=== PATIENT | female | born 1940 | race Caucasian/White ===

== ENCOUNTER 2017-02-07 21:02 | Inpatient (IN) | payer MEDICARE, OTHER ==
[~2017-02-07] VITALS: Ht 162.6 cm; Wt 86.4 kg
[~2017-02-07 21:02] MED LIST: ETOMIDATE 20 MG INJ ONE; MIDAZOLAM 1 MG/ML 2 ML INJ ONE; VECURONIUM 10 MG VIAL ONE
[2017-02-07] MEDS ORDERED: REPA1TAB5 PO (21:30)
[2017-02-07] MEDS ORDERED: FURO20TA3 PO (21:30)
[2017-02-07] MEDS ORDERED: SODIUM CHLORIDE 0.9% 500 ML BAG IV* STA (21:31)
[2017-02-07] MEDS ORDERED: PROPOFOL 100 ML IV STA (21:31)
[2017-02-07] MEDS ORDERED: ERGO500037 PO (21:31)
[2017-02-07] MEDS ORDERED: LANT3I SC (21:31)
[2017-02-07] MEDS ORDERED: VECURONIUM 100 MG in DEXTROSE 5% 100 ML IV ONE (21:31)
--- NOTE | 2017-02-07 21:31 | ERA ---
ER Documentation Chief Complaint Date/Time DATE: 02/07/17 TIME: 21:31 Chief Complaint ROSC from home, arrest witnessed by family. HPI Patient is unable to give any history due to clinical condition which is obtained entirely from transferring paramedics, family and review of previous medical records. 76-year-old female with a history of Leticia's granulomatosis, diabetes mellitus , hypertension, asthma/COPD, respiratory failure and recent admission to [facility] for pneumonia, signed out AGAINST MEDICAL ADVICE this morning presents to the ED via rescue ambulance with ROSC after witnessed cardiopulmonary arrest. Patient was at home with family when she suddenly began complaining of increasing, severe shortness of breath, stopped breathing and lost consciousness. There was no bystander CPR. When paramedics arrived the patient was unresponsive with GCS of 3, apneic, asystolic and pulseless. CPR was initiated with closed chest compressions. Multiple attempts at intubation were unsuccessful and a Tacho airway was placed. Multiple attempts at IV access were unsuccessful and an IO line was placed in the right lower extremity. After 2 rounds of epinephrine paramedics were contacting the base station to terminate resuscitative efforts when there was a return of spontaneous circulation. there were palpible pulses, rhythm strip revealed sinus rhythm, blood pressure was over 100 mmHg systolic but still no spontaneous respirations and the patient was transported to the ED with bagged ventilations. ROS All systems reviewed and are negative except as per history of present illness. Medications Home Meds Reported Medications Lorazepam* (Lorazepam*) Unknown Strength Tablet, 0.5 TAB PO HS Y for ANXIETY, TAB 02/07/17 Insulin Glargine* (Lantus*) 100 Unit/Ml Soln, 25 UNIT SC DAILY, #1 VIAL 02/07/17 Ergocalciferol (Vitamin D2) (VITAMIN D2) 50,000 Unit Capsule, 45421 UNIT PO Q7D , CAP 02/07/17 Furosemide* (Furosemide*) 20 Mg Tablet, 20 MG PO BID, #30 TAB 02/07/17 Repaglinide* (Repaglinide*) 1 Mg Tablet, 1 MG PO BID WITH MEALS, TAB 02/07/17 Allergies Allergies: Coded Allergies: No Known Allergy (Verified , 02/07/17) PMhx/Soc Reviewed in chart. As per HPI. History of Surgery: Yes (Tracheostomy) Hx Cardiac Disorders: Yes (htn, unknown cardiac) Hx Alcohol Use: No Hx Substance Use: No Hx Tobacco Use: No Smoking Status: Unknown if ever smoked FmHx Reviewed in chart. No family history of sudden cardiac . Physical Exam Vitals Vital Signs Date Time Temp Pulse Resp B/P Pulse Ox O2 Delivery O2 Flow Rate FiO2 02/08/17 00:00 79 20 127/61 97 Mechanical Ventilator 02/07/17 23:30 82 20 121/62 97 Mechanical Ventilator 02/07/17 23:10 85 20 94 60 02/07/17 23:00 89 20 85/46 92 Mechanical Ventilator 02/07/17 22:30 96 20 121/58 93 Mechanical Ventilator 02/07/17 22:18 97 20 97 60 02/07/17 22:00 100 16 95/61 100 Mechanical Ventilator 02/07/17 21:45 103 16 99 100 02/07/17 21:30 108 16 116/57 98 02/07/17 21:20 111 27 97 100 02/07/17 21:13 98.1 101 13 119/80 97 Physical Exam Const: Unresponsive. GCS 3.Severe distress Head: Atraumatic Eyes: Pupils midpoint and reactive to light. Negative corneal reflex. ENT: Tacho areas in place with a small blood oozing around the tube. Neck: No subcutaneous crepitus. JVD. Resp: Breath sounds are markedly diminished bilaterally with bag ventilation. Cardio: Regular rate and rhythm, no murmurs Abd: Soft, obese, mild distention. No tenderness. No masses or abnormal pulsations. No fluid wave. Skin: No petechiae or rashes Back: No ecchymosis or deformity Ext: Cyanotic., No edema. I/O line in the right tibia. Neur: Unresponsive. GCS 3. Physical examination is truncated due to the constraints imposed by the patient' s clinical condition. Result Diagram: 02/07/17211302/07/172113 Results 24 hrs Laboratory Tests Test 02/07/17 21:14 02/07/17 21:20 02/07/17 21:31 02/07/17 22:50 White Blood Count 24.710^3/ul Red Blood Count 3.3910^6/ul Hemoglobin 9.6g/dl Hematocrit 32.1% Mean Corpuscular Volume 94.7fl Mean Corpuscular Hemoglobin 28.3pg Mean Corpuscular Hemoglobin Concent 29.9g/dl Red Cell Distribution Width 15.9% Platelet Count 75032^3/UL Mean Platelet Volume 9.8fl Neutrophils % 55.0% Band Neutrophils % 3.0% Lymphocytes % 31.0% Reactive Lymphocytes % 3.0% Monocytes % 4.0% Eosinophils % 1.0% Metamyelocytes % 1.0% Myelocytes % 2.0% Neutrophils # 13.610^3/ul Lymphocytes # 7.710^3/ul Monocytes # 1.010^3/ul Eosinophils # 0.210^3/ul Metamyelocytes # 0.2 Myelocytes # 0.5 Platelet Estimate PLT APPEAR INCREASED Macrocytosis OCCASIONAL Prothrombin Time 18.8Sec Prothrombin Time Ratio 1.5 INR International Normalized Ratio 1.56 Activated Partial Thromboplast Time 34.8Sec Sodium Level 144mmol/L Potassium Level 5.4mmol/L Chloride Level 106mmol/L Carbon Dioxide Level 21mmol/L Anion Gap 22 Blood Urea Nitrogen 35mg/dl Creatinine 1.96mg/dl Glucose Level 310mg/dl Calcium Level 9.1mg/dl Phosphorus Level 8.1mg/dl Magnesium Level 2.3mg/dl Total Bilirubin 0.1mg/dl Direct Bilirubin 0.00mg/dl Indirect Bilirubin 0.1mg/dl Aspartate Amino Transf (AST/SGOT) 88IU/L Alanine Aminotransferase (ALT/SGPT) 82IU/L Alkaline Phosphatase 78IU/L Troponin I 0.015ng/ml Total Protein 6.5g/dl Albumin 3.8g/dl Globulin 2.70g/dl Albumin/Globulin Ratio 1.40 Bedside Glucose 239mg/dL Blood Gas Specimen Source Blood arterial Arterial Blood Date Drawn 02/07/2017 10:02:07 PM Arterial Blood pH (Temp corrected) 7.185 Arterial Blood pCO2 (Temp correct) 60.1mmhg Arterial Blood pO2 (Temp corrected) 165.6mmHG Arterial Blood HCO3 22.2mmol/L Arterial Blood Base Excess -6.4mmol/L Arterial Blood Oxygen Saturation 98.5mmHG Sid Test ACCEPTAB Arterial Blood Gas Puncture Site Right Radial Arterial Blood Carboxyhemoglobin 0.3% Arterial Blood Methemoglobin 0.6% Blood Gas A-a O2 Differential 487.3mmHg Oxyhemoglobin Percent 97.6% Total Hemoglobin 10.7g/dl Blood Gas Temperature 37.0C Blood Gas Respiration Rate 16.0 Blood Gas Actual Respiration Rate 16 Blood Gas Modality VENT - AC FiO2 100.0% Blood Gas Tidal Volume 500.0mL Blood Gas Low PEEP Setting 5.0cmH2O Blood Gas Inspiratory Pressure 32.0 Blood Gas Critical Value Read Back Donna MEJIA MD Blood Gas Notified Whom AA Blood Gas Notified Time 02/07/2017 10:14:07 PM Urine Color LT. YELLOW Urine Clarity CLEAR Urine pH 5.5 Urine Specific [place] 1.020 Urine Ketones NEGATIVE Urine Nitrite NEGATIVE Urine Bilirubin NEGATIVE Urine Urobilinogen 0.2 E.U./dL Urine Leukocyte Esterase TRACE Urine Microscopic RBC 25-50/HPF Urine Microscopic WBC 2-5/HPF Urine Squamous Epithelial Cells MODERATE Urine Amorphous Urates MODERATE Urine Bacteria MANY Urine Hemoglobin 3+ Urine Glucose NEGATIVE% Urine Total Protein 2+ Current Medications Medications (Trade) Dose Ordered Sig/Mazin Route PRN Reason Start Time Stop Time Status Last Admin Dose Admin Sodium Chloride 500 ml 500 ml ONCE STAT IV* 02/07/17 21:31 02/07/17 21:39 DC Propofol (Diprivan) 100 ml @ 2.85 mls/hr ONCE STAT IV 02/07/17 21:31 02/07/17 22:20 DC Vecuronium [place] 10 mg 10 mg ONCE ONCE IV 02/07/17 22:00 02/07/17 22:01 DC Vecuronium [place] 100 mg/ Dextrose 100 ml @ 5.7 mls/hr [id number] ONCE IV 02/07/17 21:31 02/08/17 15:03 02/07/17 23:24 Midazolam HCl 50 ml @ 1 mls/hr TITRATE IV 02/07/17 22:30 02/07/17 23:25 Fentanyl 100 ml @ 2.5 mls/hr TITRATE IV 02/07/17 22:30 02/07/17 23:24 Dextrose/Sodium Chloride (D5-1/2ns) 1,000 ml @ 100 mls/hr Q10H IV 02/07/17 22:20 Ondansetron HCl (Zofran Inj) 4 mg Q6H PRN IV NAUSEA AND/OR VOMITING 02/07/17 22:30 Albuterol (Ventolin Hfa) 4 puff Q2H RESP THERAPY PRN INH SHORTNESS OF BREATH 02/07/17 22:30 Ipratropium [place] (Atrovent Hfa) 4 puff Q2H RESP THERAPY PRN INH SHORTNESS OF BREATH 02/07/17 22:30 Acetaminophen (Tylenol Liquid) 650 mg Q6H PRN PO PAIN LEVEL 1-3 OR FEVER 02/07/17 22:30 Morphine Sulfate (morphine) 2 mg Q4H PRN IV PAIN LEVEL 7-10 02/07/17 22:30 Lorazepam (Ativan) 1 mg Q2H PRN IV ANXIETY 02/07/17 22:30 Famotidine (Pepcid Iv) 20 mg DAILY IV 02/08/17 09:00 Heparin Sodium (Porcine) 5000 unit 5,000 unit Q12 SC 02/08/17 09:00 Norepinephrine (Levophed) 250 ml @ 1.875 mls/ hr PER PROTOCOL IV 02/07/17 22:30 Acetaminophen (Tylenol Supp) 650 mg Q4H PRN WI TEMP > 37C 02/07/17 22:30 Acetaminophen (Tylenol Liquid) 650 mg Q4H PRN PO TEMP > 37C 02/07/17 22:30 Acetaminophen (Tylenol Supp) 500 mg Q6H [place] 02/08/17 22:30 Acetaminophen (Tylenol Liquid) 500 mg Q6H PO 02/08/17 22:30 Meperidine HCl (Demerol) 12.5 mg Q4H PRN IV POST OPERATIVE SHIVERING 02/07/17 22:30 Meperidine HCl (Demerol) 25 mg Q4H PRN IV POST OPERATIVE SHIVERING 02/07/17 22:30 Eye Lubricant (Akwa Oint) 1 applic Q6 BOTH EYES 02/08/17 00:00 Eye Lubricant (Artificial Tears Oph) 2 drop Q6 BOTH EYES 02/08/17 00:00 Miscellaneous Information (* Miscellaneous Pharmacy Order) Discontinue all previ... PROTOCOL ONCE XX 02/07/17 22:30 02/07/17 23:49 DC Diagnostic Test (Pha) 1 ea 1 ea Q1H XX 02/07/17 22:30 Insulin Human Regular/Sodium Chloride (Novolin-R/NS) 100 ml @ 0 mls/hr PER PROTOCOL IV 02/07/17 23:45 Miscellaneous Information (* Miscellaneous Pharmacy Order) Treatment of Hypoglycemia: 1.BG 51... Per protocol XX 02/07/17 22:30 Dextrose (D50w Syringe) 25 ml Q15M PRN IV Till BS 80 mg/dL or above x2 02/07/17 22:30 Dextrose (D50w Syringe) 50 ml Q15M PRN IV Till BS 80 mg/dL or above x2 02/07/17 22:30 Vancomycin HCl VANCOMYCIN PER PHARMACY PER PROTOCOL XX 02/07/17 22:30 Cefepime HCl (Maxipime 1gm/50 ml (Pmx)) 50 ml @ 100 mls/hr Q12 IVPB 02/08/17 09:00 Sodium Chloride 2540 ml 2,540 ml BOLUS OVER 2 HOURS STAT IV* 02/07/17 23:11 02/07/17 23:14 DC 02/07/17 23:19 Norepinephrine 250 ml @ 7.5 mls/hr ONCE STAT IV 02/07/17 23:11 02/09/17 08:30 Vancomycin HCl 250 ml @ 125 mls/hr ONCE STAT IVPB 02/07/17 23:11 02/08/17 01:10 Cefepime HCl 50 ml @ 100 mls/hr ONCE STAT IVPB 02/07/17 23:11 02/07/17 23:40 DC 02/07/17 23:18 Levofloxacin/ Dextrose 150 ml @ 100 mls/hr ONCE STAT IVPB 02/07/17 23:11 02/08/17 00:40 DC Vancomycin HCl 1.5 gm/Sodium Chloride 250 ml @ 83.333 mls/ hr ONCE ONCE IVPB 02/08/17 01:00 02/08/17 03:59 Cancel Vancomycin HCl (Vancocin) 100 ml @ 100 mls/hr ONCE IVPB 02/08/17 02:00 02/08/17 02:59 PROCEDURE: XR Chest. CLINICAL INDICATION: Chest pain TECHNIQUE: Single frontal view of the chest was obtained COMPARISON: 02/27/2009 FINDINGS: The tip of the endotracheal tube is approximate 1.7 cm above the domenico. There is hypoinflation of the lungs. The heart does not appear to be grossly enlarged. Calcification in thoracic aorta. Increased densities in both lungs could represent interstitial pulmonary edema and/or chronic changes with confluence in the upper lungs which could be secondary to infiltrates. Mild to moderate elevation of the right hemidiaphragm with right lower lung volume loss increased compared to previous study. ECG leads projected over the chest. There is no definite pleural effusion or pneumothorax seen. IMPRESSION: Hypoinflation of the lungs. Increased densities in both lungs could represent interstitial pulmonary edema and/or chronic changes increased compared to previous study with confluence in the upper lungs appearing since the previous study which could be secondary to infiltrates. Mild to moderate elevation of the right hemidiaphragm with right lower lung volume loss increased compared to previous study. RPTAT: HJES .Dar Odonnell MD, MD Date Time Electronically viewed and signed by .Dar Odonnell MD, on 02/07/2017 22:54 .S/ EKG: Time:21:04. Sinus rhythm. Ventricular rate 83. WI interval 262 ms consistent with first-degree AV block. Right axis deviation. T-wave inversions in 2, 3, aVF, V5 and V6. But no acute ST segment elevation. No ectopy. EP interpretation: Abnormal ECG. Procedures/MDM DOCUMENTS REVIEWED: ED nurse, prior hospital records. [facility] contacted to obtain prior medical records. MEDICAL DECISION MAKIN-year-old female with a history of Leticia's granulomatosis, diabetes mellitus, hypertension, asthma/COPD, respiratory failure and recent admission to [facility] for pneumonia, signed out AGAINST MEDICAL ADVICE this morning presents to the ED via rescue ambulance with ROSC after witnessed cardiopulmonary arrest. Intubated and triple-lumen central venous catheter inserted as described. EKG reveals no acute ischemic changes and troponin is not elevated. No evidence of acute coronary syndrome and there is no indication for acute cardiology intervention at this point. Hypothermia protocol initiated. Cardiopulmonary arrest arrest possibly due to cardiac dysrhythmia although more likely was a primary respiratory arrest. Chest x-ray reveals bilateral infiltrates consistent with pulmonary edema versus pneumonia and antibiotics for hospital-acquired pneumonia will be initiated after cultures. Sepsis protocol with 30cc/kg fluid bolus and pressor support as needed. Initial Lactate 1.1mmol/L. Admit to ICU for further evaluation and management. Counseled family regarding diagnosis, test results and plan for admission. They understand that the prognosis is poor and expectation for a good neurologic outcome is guarded considering the prolonged down time. PROCEDURES: Endotracheal Intubation by me: Pre assessment performed. See preceding note for details. Pre-oxygenation performed with 100% oxygen RSI: Performed w/o complication or hypoxic events. Medications as ordered. Blade: Whitmore scope #4 ET Tube: 7.5 cm Depth: 21 cm at the lip Intubation confirmed by colorimetric CO2, equal breath sounds, quiet over the stomach. Chest X-ray 1V Interpreted by me: 1 cm above the domenico ET tube. Normal soft tissue, No pneumothorax. Central Line Placement by me: Patient consented, sterilely draped, full prep, gown, glove, mask, time out performed. Anesthesia: 1% lidocaine locally Location: Right femoral vein Device: Multiple lumen Technique: Seldinger technique. Secured with suture. Results: Venous return from all ports with easy saline flush. No complications. Guide wire retrieved and disposed of. Critical Care Time: 45 minutes Treatments/Evaluations: Close monitoring and treatment of unstable vital signs, cardiorespiratory, and neurologic status, while maintaining tight balance of fluid, respiratory, and cardiac interventions. This time includes discussing the case with the patient and the patient's family. This time does not include all procedures stated elsewhere in this record. This time also includes reviewing old records, labs and radiological studies. This time includes examining and re-examining the patient. Additionally, this time also includes arranging care with admitting and consulting physicians. CALLS/CONSULTS: Time 22:03, Dr. Fay, Recommends ICU admission. PATIENT CARE TRANSITIONED: Time: 22:05, Dr. anton. Departure Diagnosis: Primary Impression: Cardiac arrest Additional Impressions: Signs of return of spontaneous circulation Respiratory failure Qualified Code: J96.01 - Acute respiratory failure with hypoxia and hypercapnia Pulmonary edema Qualified Code: J81.0 - Acute pulmonary edema Pneumonia Qualified Code: J18.9 - Pneumonia due to infectious organism, unspecified laterality, unspecified part of lung Condition: Critical BEE MEJIA MD Feb 07, 2017 21:31
[2017-02-07] MEDS ORDERED: LORA0.5T PO (21:33)
[2017-02-07 21:43] LABS: ADD SCAN DIFF NO
[2017-02-07 21:45] LABS: ABNORMAL IP MESSAGE 1; HEMATOCRIT 32.1 % (37.0-47.0); HEMOGLOBIN 9.6 g/dl (12.0-16.0); MEAN CORPUSCULAR HEMOGLOBIN 28.3 pg (29.0-33.0); MEAN CORPUSCULAR HGB CONC 29.9 g/dl (32.0-37.0); MEAN CORPUSCULAR VOLUME 94.7 fl (82.0-101.0); MEAN PLATELET VOLUME 9.8 fl (7.4-10.4); PLATELET COUNT 478 10^3/UL (140-415); RED BLOOD COUNT 3.39 10^6/ul (4.20-5.40); RED CELL DISTRIBUTION WIDTH 15.9 % (11.5-14.5); WHITE BLOOD COUNT 24.7 10^3/ul (4.8-10.8)
[2017-02-07 21:49] LABS: INR 1.56; PARTIAL THROMBOPLASTIN TIME 34.8 Sec (25.0-35.0); PROTIME 18.8 Sec (12.2-14.2); PT RATIO 1.5
[2017-02-07 21:53] LABS: ALBUMIN 3.8 g/dl (3.3-4.9); ALBUMIN/GLOBULIN RATIO 1.4; BILIRUBIN,INDIRECT 0.1 mg/dl (0-1.1); BILIRUBIN,TOTAL 0.1 mg/dl (0.2-1.3); CALCIUM 9.1 mg/dl (8.4-10.2); CREATININE 1.96 mg/dl (0.44-1.00); POTASSIUM 5.4 mmol/L (3.5-5.1); TOTAL PROTEIN 6.5 g/dl (6.1-8.1)
[2017-02-07 21:59] LABS: MAGNESIUM 2.3 mg/dl (1.7-2.5); PHOSPHORUS 8.1 mg/dl (2.5-4.9)
[2017-02-07] MEDS ORDERED: VECURONIUM 10 MG VIAL IV ONE (22:00)
[2017-02-07 22:02] LABS: TROPONIN-I 0.015 ng/ml (0.00-0.12)
[2017-02-07 22:14] LABS: AADO2 Arterial 487.3 mmHg (7.0-24.0); Allen Test ACCEPTAB; Arterial Base Excess -6.4 mmol/L (-3.0-3); Arterial COHb 0.3 % (0.0-3.0); Arterial Fraction of Oxyhgb 97.6 % (93.0-99.0); Arterial HCO3 22.2 mmol/L (22.0-26.0); Arterial MetHb 0.6 % (0.0-1.5); Arterial Total Hemglobin 10.7 g/dl (12.0-18.0); MODE VENT - AC
[2017-02-07] MEDS ORDERED: DEXTROSE 5%-0.45% NACL 1,000 ML IV SCH (22:20)
[2017-02-07] MEDS ORDERED: DEXTROSE 50% 50 ML SYRINGE IV PRN ×2 (22:30)
[2017-02-07] MEDS ORDERED: MEPERIDINE 25 MG INJ IV PRN ×2 (22:30)
[2017-02-07] MEDS ORDERED: ONDANSETRON 4 MG INJ IV PRN (22:30)
[2017-02-07] MEDS ORDERED: VANCOMYCIN IV PER PHARMACY XX SCH (22:30)
[2017-02-07] MEDS ORDERED: NORepinephrine 8MG/250 ML (PMX 250 ML IV SCH (22:30)
[2017-02-07] MEDS ORDERED: ALBUTEROL 18 GM INHALER INH PRN (22:30)
[2017-02-07] MEDS ORDERED: IPRATROPIUM (HFA) 12.9 GM INHALER INH PRN (22:30)
[2017-02-07] MEDS ORDERED: ACETAMINOPHEN 650 MG SUPP PR PRN (22:30)
[2017-02-07] MEDS ORDERED: ACETAMINOPHEN 650MG/20.3ML CUP PO PRN (22:30)
[2017-02-07] MEDS ORDERED: morphine 2 MG INJ IV PRN (22:30)
[2017-02-07] MEDS ORDERED: ACCU-CHEK XX SCH (22:30)
[2017-02-07] MEDS ORDERED: FENTAnyl (DRIP) 1000 mcg/100mL 100 ML IV SCH (22:30)
[2017-02-07 22:34] LABS: EOSINOPHILS # 0.2 10^3/ul (0.0-0.5); LYMPHOCYTES # 7.7 10^3/ul (0.8-2.9); MYELOCYTES # 0.5; NEUTROPHIL # 13.6 10^3/ul (1.6-7.5)
[2017-02-07 22:37] LABS: PLATELET ESTIMATE PLT APPEAR INCREASED
--- NOTE | 2017-02-07 22:54 | RADRPT ---
PROCEDURE: XR Chest. CLINICAL INDICATION: Chest pain TECHNIQUE: Single frontal view of the chest was obtained COMPARISON: 02/27/2009 FINDINGS: The tip of the endotracheal tube is approximate 1.7 cm above the domenico. There is hypoinflation of t he lungs. The heart does not appear to be grossly enlarged. Calcification in thoracic aorta. Incr eased densities in both lungs could represent interstitial pulmonary edema and/or chronic changes wi th confluence in the upper lungs which could be secondary to infiltrates. Mild to moderate elevati on of the right hemidiaphragm with right lower lung volume loss increased compared to previous study . ECG leads projected over the chest. There is no definite pleural effusion or pneumothorax seen. IMPRESSION: Hypoinflation of the lungs. Increased densities in both lungs could represent interstitial pulmonary edema and/or chronic changes increased compared to previous study with confluence in the upper lung s appearing since the previous study which could be secondary to infiltrates. Mild to moderate nolan vation of the right hemidiaphragm with right lower lung volume loss increased compared to previous s armando. RPTAT: HJES .Dar Odonnell MD, Date Time Electronically viewed and signed by .Dar Odonnell MD, on 02/07/2017 22:54 .S/
[2017-02-07] MEDS ORDERED: SODIUM CHLORIDE 0.9% 1L BAG IV* STA (23:11)
[2017-02-07] MEDS ORDERED: VANCOMYCIN 1 GM (PMX) 250 ML IVPB STA (23:11)
[2017-02-07] MEDS ORDERED: NORepinephrine 8MG/250 ML (PMX 250 ML IV STA (23:11)
[2017-02-07] MEDS ORDERED: LEVOFLOXACIN 750MG/D5W (PMX) 150 ML IVPB STA (23:11)
[2017-02-07] MEDS ORDERED: CEFEPIME 2GM/50 ML (PMX) 50 ML IVPB STA (23:11)
[2017-02-07 23:13] LABS: ADD UMIC YES; URINE BILIRUBIN (Dip) NEGATIVE (NEGATIVE); URINE BLOOD (Dip) 3+ (NEGATIVE); URINE COLOR LT. YELLOW (YELLOW); URINE GLUCOSE (Dip) NEGATIVE (NEGATIVE); URINE KETONES (Dip) NEGATIVE (NEGATIVE); URINE LEUKOCYTE ESTERASE (Dip) TRACE (NEGATIVE); URINE NITRITE (Dip) NEGATIVE (NEGATIVE); URINE TOTAL PROTEIN (Dip) 2+ (NEGATIVE); URINE UROBILINOGEN (Dip) 0.2 E.U./dL (0.1-1.0)
[2017-02-07] MEDS: MIDAZOLAM (DRIP) 50 mg/50 mL 50 ML IV SCH (23:25)
[2017-02-07] MEDS ORDERED: INSULIN HUMAN REGULAR 100 UNIT in SOD CHLORIDE 0.9% 99 ML IV SCH (23:45)
--- NOTE | 2017-02-07 23:52 | RADRPT ---
PROCEDURE: XR Chest. CLINICAL INDICATION: Endotracheal intubation. TECHNIQUE: Portable AP upright view of the chest was obtained. COMPARISON: 02/07/2017 at 21:38 FINDINGS: The cardiomediastinal silhouette is within normal limits. Distal tip of the endotracheal tube proje cts approximately 1.8 cm above the domenico, diffuse interstitial infiltrates asymmetrically involving the left greater than right lung are again noted, findings not evident on a remote exam of 02/28/20 09.. There is no evidence for pleural effusion, pneumothorax or pulmonary vascular congestion. The osseous structures are intact with no evidence for acute abnormality. RPTAT:HJJR IMPRESSION: 1. The distal tip of the endotracheal tube projecting approximate 1.8 cm above the domenico possibly slightly retracted compared to earlier the same day. 2. Diffuse interstitial infiltrates of the left greater than right lung are again noted unable to e xclude interstitial lung disease or diffuse interstitial pneumonia. Physician Alejandro Date Time Electronically viewed and signed by Physician Alejandro on 02/07/2017 23:52 /
[2017-02-07 23:54] LABS: URINE RBCS 25-50 /HPF (0)
--- NOTE | 2017-02-07 23:55 | RADRPT ---
PROCEDURE: XR Abdomen. CLINICAL INDICATION: Hyperthermia TECHNIQUE: Portable AP supine abdomen x-rays. COMPARISON: None. FINDINGS: A right inguinal approach central venous access catheter is present the distal tip projecting over t he right sacroiliac joint presumably within the common iliac vein. Moderate amount of fecal debris is present within the colon. The bowel gas pattern is normal. There is no evidence of obstruction. Calcification overlying the right abdomen may reflect right intrarenal calculi. No evidence of visc eromegaly. Multilevel degenerative spondylosis of the thoracolumbar spine is seen without evidence of acute oss eous abnormality. Catheter in the pelvis is at the midline and likely in the urinary bladder. RPTAT:HJJR IMPRESSION: 1. Constipation pattern without evidence of bowel obstruction or acute intra-abdominal pathology. 2. Right inguinal approach central venous access catheter projects in satisfactory position. 3. Calcifications projecting in the right hemiabdomen possibly a right renal calculus. Physician Alejandro Date Time Electronically viewed and signed by Physician Alejandro on 02/07/2017 23:55 /
[2017-02-07 23:56] LABS: SQUAMOUS EPITHELIAL CELL,UR MODERATE
[2017-02-07 23:58] LABS: BACTERIA,URINE MANY
[2017-02-08] VITALS (64 sets, daily range): BP systolic 113–168; BP diastolic 53–92; PULSE 64–83; RESP 20; Ht 162.6 cm; Wt 86.4 kg
[2017-02-08] MEDS ORDERED: ARTIFICIAL TEARS 15 ML OPH BOTH EYES SCH
[2017-02-08] MEDS ORDERED: OCULAR LUBRICANT 3.5 GM OPH OINT BOTH EYES SCH
[2017-02-08] MEDS ORDERED: VANCOMYCIN 1.5 GM in SOD CHLORIDE 0.9% 250 ML IVPB ONE (01:00)
[2017-02-08] MEDS ORDERED: VANCOMYCIN 500MG/NS (PMX) 100 ML IVPB SCH (02:00)
[2017-02-08] MEDS ORDERED: MEPERIDINE 25 MG INJ IV PRN ×2 (02:00)
[2017-02-08] MEDS ORDERED: DEXTROSE 50% 50 ML SYRINGE IV PRN ×2 (02:00)
--- NOTE | 2017-02-08 02:20 | RADRPT ---
PROCEDURE: CT head, without contrast. CLINICAL INDICATION: Hypothermia TECHNIQUE: Noncontrast CT examination of the head, with axial, sagittal and coronal reformatted im ages. Automated dose exposure control was employed. CTDI: 45.01 and DLP: 720.23. COMPARISON: None. FINDINGS: Mild chronic changes of atrophy and small vessel disease white matter. Mild bilateral proptosis. No acute hemorrhage. Subarachnoid spaces are substantially preserved and symmetric. Ventricles ar e unremarkable. No mass effect. Morris-white matter distinction is preserved without evident decreased attenuation t o suggest acute or recent infarct. Sinuses and osseous structures are unremarkable. IMPRESSION: Mild chronic changes of atrophy and small vessel disease white matter, and otherwise, no acute proce ss in the head. RPTAT: UU Physician Saulo Date Time Electronically viewed and signed by Physician Saulo on 02/08/2017 02:20 RS/
[2017-02-08] MEDS: ACCU-CHEK XX SCH ×22 (03:00→23:16)
[2017-02-08 03:02] LABS: CK-MB 6.34 ng/ml (0.0-2.4); TROPONIN-I 0.103 ng/ml (0.00-0.12)
[2017-02-08] MEDS: ARTIFICIAL TEARS 15 ML OPH BOTH EYES SCH ×4 (04:11→17:26)
[2017-02-08] MEDS: OCULAR LUBRICANT 3.5 GM OPH OINT BOTH EYES SCH ×4 (04:12→17:26)
[2017-02-08] MEDS: INSULIN HUMAN REGULAR 100 UNIT in SOD CHLORIDE 0.9% 99 ML IV SCH ×2 (04:26→05:26)
[2017-02-08 05:32] LABS: ALBUMIN 3.3 g/dl (3.3-4.9); ALBUMIN/GLOBULIN RATIO 1.37; BILIRUBIN,INDIRECT 0.1 mg/dl (0-1.1); BILIRUBIN,TOTAL 0.1 mg/dl (0.2-1.3); CALCIUM 7.9 mg/dl (8.4-10.2); CREATININE 1.76 mg/dl (0.44-1.00); POTASSIUM 3.6 mmol/L (3.5-5.1); TOTAL PROTEIN 5.7 g/dl (6.1-8.1)
[2017-02-08] MEDS ORDERED: D5W-0.45 NACL + KCL 10 MEQ 1,000 ML IV SCH (06:30)
[2017-02-08 06:53] LABS: ADD SCAN DIFF NO
[2017-02-08 06:58] LABS: ABNORMAL IP MESSAGE 1; HEMATOCRIT 31.4 % (37.0-47.0); HEMOGLOBIN 9.8 g/dl (12.0-16.0); MEAN CORPUSCULAR HGB CONC 31.2 g/dl (32.0-37.0); MEAN CORPUSCULAR VOLUME 89.7 fl (82.0-101.0); MEAN PLATELET VOLUME 9.7 fl (7.4-10.4); PLATELET COUNT 361 10^3/UL (140-415); RED CELL DISTRIBUTION WIDTH 15.4 % (11.5-14.5); WHITE BLOOD COUNT 22.7 10^3/ul (4.8-10.8)
--- NOTE | 2017-02-08 07:35 | HP ---
DATE OF ADMISSION: 02/07/2017 TIME SEEN: 2300. CHIEF COMPLAINT: Cardiopulmonary arrest, status post ROSC. HISTORY OF PRESENT ILLNESS: The patient is a 76-year-old female with a history of hypertension, CO PD, SVT, atrial flutter, diabetes, previous tracheostomy, who was brought to the ER after cardiopulm onary arrest. The patient was admitted at [facility] for pneumonia, but she signed again st medical advice today. While she was at home she started complaining of shortness of breath and t hen she became unresponsive. When EMS arrived the patient was pulseless, in asystole, and was apnei c. Chest compression/CRP was initiated and multiple attempts were made to intubate the patient, but it was unsuccessful. Also multiple attempts in placement of IV access was unsuccessful either, and as such, a right lower extremity IO was placed. Reportedly after 2 rounds of epinephrine, EMS were contacting their base station to terminate resuscitation, when the patient had return of spontaneou s circulation. When she presented to the ER initial documented vitals showed a blood pressure of 119/80, heart rate 101, respiratory rate 13, temperature 98.1, oxygen saturation 97% on 100% FIO2. WBC almost 25,000 , hemoglobin 9.6, platelet count 478, potassium 5.4, BUN 35, creatinine 1.96, glucose 310, phosphoru s 8.1. AST 88, ALT 82. The patient is currently admitted to the ICU. REVIEW OF SYSTEMS: Unable to assess. PAST MEDICAL HISTORY: As per HPI, including nephrolithiasis and likely chronic kidney disease. PAST SURGICAL HISTORY: Tracheostomy. SOCIAL HISTORY: Unknown. ALLERGIES: No known drug allergies. HOME MEDICATIONS: 1. Ativan 2. Lasix. 3. Insulin Lantus. 4. Repaglinide. 5. Vitamin D. PHYSICAL EXAMINATION: VITAL SIGNS: Stable. GENERAL: Patient intubated, sedated, currently unresponsive. HEENT: No obvious head deformity. Pupils are pinpoint to light. No corneal reflex normal. NECK: No gag reflex. CARDIOVASCULAR: Regular rate and rhythm. LUNGS: Decreased breath sounds at the bases. ABDOMEN: Soft, obese. Positive bowel sounds. EXTREMITIES: No edema. NEUROLOGIC: The patient is intubated, sedated, she is unresponsive. There is no corneal or gag ref farhan. LABORATORY: Pertinent positives as mentioned in the HPI. IMAGING: Brain CT shows mild chronic change, atrophy and small vessel disease white matter, otherwi se no acute process. Chest x-ray shows hypoinflation of the lungs. Increased density in the lower lungs, representing interstitial pulmonary edema and/or chronic change which could be secondary to i nfiltrate. X-ray of the abdomen shows constipation pattern, without evidence of bowel obstruction or acute intr aabdominal pathology. Also noted was a calcification projecting in the right vincent-abdomen, possibly a right renal calculus. IMPRESSION: 1. Cardiopulmonary arrest, status post ROSC. 2. Sepsis, as evidenced by severe leukocytosis and tachycardia secondary to healthcare-associated p neumonia. 3. Presumed acute on chronic kidney disease. 4. Diabetes with hyperglycemia. 5. Hyperkalemia. 6. History of chronic obstructive pulmonary disease. 7. History of atrial flutter and SVT. 8. Recently diagnosed pneumonia, at [facility]. Note that the patient has left against medical advice today. PLAN: Will continue ICU monitoring. Will continue ventilator support and, if needed, pressor suppo rt. She will be placed on a broad-spectrum antibiotic. Will follow up on the culture results. Not e that the patient left against medical advice from [facility] today after she was admitt ed for pneumonia. Will attempt to send a tracheal aspirate for Gram stain and culture. Will place an ID consult, as well as pulmonary and nephrology. Avoid nephrotoxins and renally dose all medicat ions. Will initiate the patient on hypothermia protocol. Will also place a cardiology consult. Silvio paredes obtain a 2D echo. She will be placed on insulin for diabetes. The patient currently has a poor prognosis. Will place a neurology consult and obtain an EEG to david gaitan for brain activity. Further workup and management per clinical course. Total critical care time spent was 35 minutes. Dictated By: CASSANDRA SMITH/SWAPNA Conf#: [id number] DID#: [id number]
[2017-02-08 07:43] LABS: ALBUMIN 3.7 g/dl (3.3-4.9); ALBUMIN/GLOBULIN RATIO 1.37; BILIRUBIN,INDIRECT 0.2 mg/dl (0-1.1); BILIRUBIN,TOTAL 0.2 mg/dl (0.2-1.3); CALCIUM 8.7 mg/dl (8.4-10.2); CREATININE 1.64 mg/dl (0.44-1.00); POTASSIUM 3.4 mmol/L (3.5-5.1); TOTAL PROTEIN 6.4 g/dl (6.1-8.1)
[2017-02-08] MEDS: POTASSIUM CHLORIDE 50 ML IVPB PRN ×5 (08:51→18:56)
[2017-02-08 08:55] LABS: AADO2 Arterial 320.9 mmHg (7.0-24.0); Allen Test ACCEPTAB; Arterial Base Excess -1.9 mmol/L (-3.0-3); Arterial COHb 0.3 % (0.0-3.0); Arterial Fraction of Oxyhgb 93.6 % (93.0-99.0); Arterial HCO3 23.8 mmol/L (22.0-26.0); Arterial MetHb 0.4 % (0.0-1.5); Arterial Total Hemglobin 10.1 g/dl (12.0-18.0); MODE VENT - AC
[2017-02-08 08:55] LABS: AADO2 Arterial 335.6 mmHg (7.0-24.0); Allen Test ACCEPTAB; Arterial Base Excess -0.5 mmol/L (-3.0-3); Arterial COHb 0.3 % (0.0-3.0); Arterial Fraction of Oxyhgb 95.9 % (93.0-99.0); Arterial HCO3 23.6 mmol/L (22.0-26.0); Arterial MetHb 0.2 % (0.0-1.5); Arterial Total Hemglobin 11.2 g/dl (12.0-18.0); MODE VENT - AC
[2017-02-08] MEDS ORDERED: 1/2 NS + KCL 20 MEQ 1,000 ML IV SCH (09:00)
[2017-02-08] MEDS: FAMOTIDINE 20 MG INJ IV SCH (09:02)
[2017-02-08] MEDS: HEPARIN 5,000 UNIT/0.5 ML VIAL SC SCH ×2 (09:03→21:09)
[2017-02-08] MEDS: CEFEPIME 1GM/50 ML (PMX) 50 ML IVPB SCH ×2 (09:20→21:07)
[2017-02-08 09:22] LABS: MAGNESIUM 1.8 mg/dl (1.7-2.5); PHOSPHORUS 3.2 mg/dl (2.5-4.9)
--- NOTE | 2017-02-08 09:59 | RADRPT ---
Vent Rate: 74 bpm RR Interval: 0 msec MD Interval: 216 msec QRS Duration: 132 msec QT Interval: 488 msec QTC Interval: 541 msec P-R-T [place]: 46 - 55 - 0 degrees Sinus rhythm with 1st degree AV block Nonspecific intraventricular block Inc LBBB Nonspecific T wave abnormality Abnormal ECG No previous tracing available for comparison Electronically Signed By: Dar Molina [id number]
--- NOTE | 2017-02-08 10:22 | CONS ---
Date/Time of Note Date/Time of Note DATE: 02/08/17 TIME: 10:17 Assessment/Plan Assessment/Plan Additional Assessment/Plan Current ventilator setting; AC of 20, tidal volume 500, PEEP of 5, 60% FiO2. Patient currently on vecuronium drip, insulin drip, Versed at 1 mg/h. Chest x-ray was reviewed from yesterday evening which is showing diffuse bilateral pneumonia. Endotracheal tube is at an adequate level. Assessment and recommendations; 1. Patient admitted for respiratory failure due to severe bilateral pneumonia. 2. Cardiac arrest, status post along CPR. Difficult to ascertain at this point any degree of hypoxic brain injury. 3. History of renal insufficiency. 4. History of cardiac arrhythmia. 5. History of COPD. 6. History of hypertension Continue current supportive care. Patient currently on adequate antibiotic regimen. Prognosis is very guarded on account of multiorgan involvement. Obtain follow-up chest x-ray in 24 hours. Consultation Date/Type/Reason Admit Date/Time Feb 07, 2017 at 22:31 Date of Consultation: Feb 08, 2017 Type of Consultation: Pulmonary/critical care Reason for Consultation Pulmonary consultations requested for evaluation and treatment of respiratory failure. History of presenting any; patient is a 76-year-old white lady who was brought into the emergency room after patient had a cardiac arrest event at home. According to medical records the patient signed out AGAINST MEDICAL ADVICE from [facility] yesterday with a diagnosis of severe bilateral pneumonia. Patient had along CPR done lasting approximately 20 minutes with revival of vital signs. By the time I saw the patient the patient is orally intubated on ventilator and on hypothermia protocol. History was obtained from medical records. Past medical history; 1. History of COPD. 2. Recent hospital stay at [facility]. 3. Chronic renal insufficiency. 4. History of hypertension. 5. History of SVT. Medications; reviewed. Allergies; none. Social history, family history, occupational history is not available. Review of systems; unable to be obtained. General exam; elderly woman, orally intubated, sedated and paralyzed. Social History Smoking Status: Unknown if ever smoked Exam/Review of Systems Vital Signs Vitals Vital Signs Date Time Temp Pulse Resp B/P Pulse Ox O2 Delivery O2 Flow Rate FiO2 02/08/17 09:56 82 20 100 60 02/08/17 06:00 90.2 131/63 Mechanical Ventilator Intake and Output 6/7/17 6/7/17 6/8/17 15:00 23:00 07:00 Intake Total 840.1 ml Output Total 3581 ml Balance -2740.9 ml Exam HEENT examination; supple neck, no JVD. No lymphadenopathy. Midline trachea. Patient has fair dentition. Pupils are small bilaterally. No thyromegaly. No neck bruits. Chest exam; diffuse bilateral crackles. S1-S2 audible, no murmurs. Regular rhythm. Abdomen examination; soft, no scars are present. Bowel sounds are absent. Extremity exam; 1+ edema. ORGANISATION AND METHODS ANALYST examination; patient is sedated and paralyzed. Results Result Diagram: 02/08/17 0502/08/17 05 Results 24 hrs Laboratory Tests Test 02/07/17 21:14 02/07/17 21:20 02/07/17 21:31 02/07/17 22:50 White Blood Count 24.7 H Red Blood Count 3.39 L Hemoglobin 9.6 L Hematocrit 32.1 L Mean Corpuscular Volume 94.7 Mean Corpuscular Hemoglobin 28.3 L Mean Corpuscular Hemoglobin Concent 29.9 L Red Cell Distribution Width 15.9 H Platelet Count 478 H Mean Platelet Volume 9.8 Neutrophils % 55.0 Band Neutrophils % 3.0 Lymphocytes % 31.0 Reactive Lymphocytes % 3.0 Monocytes % 4.0 Eosinophils % 1.0 Metamyelocytes % 1.0 H Myelocytes % 2.0 H Neutrophils # 13.6 H Lymphocytes # 7.7 H Monocytes # 1.0 H Eosinophils # 0.2 Metamyelocytes # 0.2 Myelocytes # 0.5 Platelet Estimate PLT APPEAR INCREASED Macrocytosis OCCASIONAL Prothrombin Time 18.8 H Prothrombin Time Ratio 1.5 INR International Normalized Ratio 1.56 Activated Partial Thromboplast Time 34.8 Sodium Level 144 Potassium Level 5.4 H Chloride Level 106 Carbon Dioxide Level 21 Anion Gap 22 H Blood Urea Nitrogen 35 H Creatinine 1.96 H Glucose Level 310 H Calcium Level 9.1 Phosphorus Level 8.1 H Magnesium Level 2.3 Total Bilirubin 0.1 L Direct Bilirubin 0.00 Indirect Bilirubin 0.1 Aspartate Amino Transf (AST/SGOT) 88 H Alanine Aminotransferase (ALT/SGPT) 82 H Alkaline Phosphatase 78 Troponin I 0.015 Total Protein 6.5 Albumin 3.8 Globulin 2.70 Albumin/Globulin Ratio 1.40 Bedside Glucose 239 H Blood Gas Specimen Source Blood arterial Arterial Blood Date Drawn 02/07/2017 10:02:07 PM Arterial Blood pH (Temp corrected) 7.185 *L Arterial Blood pCO2 (Temp correct) 60.1 H Arterial Blood pO2 (Temp corrected) 165.6 H Arterial Blood HCO3 22.2 Arterial Blood Base Excess -6.4 L Arterial Blood Oxygen Saturation 98.5 Sid Test ACCEPTAB Arterial Blood Gas Puncture Site Right Radial Arterial Blood Carboxyhemoglobin 0.3 Arterial Blood Methemoglobin 0.6 Blood Gas A-a O2 Differential 487.3 H Oxyhemoglobin Percent 97.6 Total Hemoglobin 10.7 L Blood Gas Temperature 37.0 Blood Gas Respiration Rate 16.0 Blood Gas Actual Respiration Rate 16 Blood Gas Modality VENT - AC FiO2 100.0 Blood Gas Tidal Volume 500.0 Blood Gas Low PEEP Setting 5.0 Blood Gas Inspiratory Pressure 32.0 Blood Gas Critical Value Read Back Donna MEJIA MD Blood Gas Notified Whom AA Blood Gas Notified Time 02/07/2017 10:14:07 PM Urine Color LT. YELLOW Urine Clarity CLEAR Urine pH 5.5 Urine Specific [place] 1.020 Urine Ketones NEGATIVE Urine Nitrite NEGATIVE Urine Bilirubin NEGATIVE Urine Urobilinogen 0.2 E.U./dL Urine Leukocyte Esterase TRACE H Urine Microscopic RBC 25-50 Urine Microscopic WBC 2-5 Urine Squamous Epithelial Cells MODERATE Urine Amorphous Urates MODERATE Urine Bacteria MANY Urine Hemoglobin 3+ H Urine Glucose NEGATIVE Urine Total Protein 2+ H Test 02/08/17 00:00 02/08/17 02:10 02/08/17 04:08 02/08/17 05:00 Blood Gas Specimen Source Blood arterial Arterial Blood Date Drawn 02/08/2017 12:02:28 AM Arterial Blood pH (Temp corrected) 7.379 Arterial Blood pCO2 (Temp correct) 40.3 Arterial Blood pO2 (Temp corrected) 65.8 L Arterial Blood HCO3 23.8 Arterial Blood Base Excess -1.9 Arterial Blood Oxygen Saturation 94.3 L Sid Test ACCEPTAB Arterial Blood Gas Puncture Site Left Radial Arterial Blood Carboxyhemoglobin 0.3 Arterial Blood Methemoglobin 0.4 Blood Gas A-a O2 Differential 320.9 H Oxyhemoglobin Percent 93.6 Total Hemoglobin 10.1 L Blood Gas Temperature 34.8 Blood Gas Respiration Rate 20.0 Blood Gas Actual Respiration Rate 20 Blood Gas Modality VENT - AC FiO2 60.0 Blood Gas Tidal Volume 500.0 Blood Gas Low PEEP Setting 5.0 Blood Gas Inspiratory Pressure 33.0 Blood Gas Notified Whom AA Blood Gas Notified Time 02/08/2017 12:13:42 AM Lactic Acid Level 1.1 1.0 Lactate Dehydrogenase 1124 H Creatine Kinase 297 H Creatine Kinase Index 2.1 Creatinine Kinase MB (Mass) 6.34 H Troponin I 0.103 Bedside Glucose 278 H Sodium Level 148 H Potassium Level 3.6 Chloride Level 112 H Carbon Dioxide Level 26 Anion Gap 14 # Blood Urea Nitrogen 36 H Creatinine 1.76 H Glucose Level 291 H Calcium Level 7.9 L Total Bilirubin 0.1 L Direct Bilirubin 0.00 Indirect Bilirubin 0.1 Aspartate Amino Transf (AST/SGOT) 90 H Alanine Aminotransferase (ALT/SGPT) 109 H Alkaline Phosphatase 67 Total Protein 5.7 L Albumin 3.3 Globulin 2.40 Albumin/Globulin Ratio 1.37 Test 02/08/17 05:15 02/08/17 05:19 02/08/17 06:00 02/08/17 06:03 Bedside Glucose 297 H 305 H White Blood Count 22.7 H Red Blood Count 3.50 L Hemoglobin 9.8 L Hematocrit 31.4 L Mean Corpuscular Volume 89.7 Mean Corpuscular Hemoglobin 28.0 L Mean Corpuscular Hemoglobin Concent 31.2 L Red Cell Distribution Width 15.4 H Platelet Count 361 # Mean Platelet Volume 9.7 Neutrophils % Eosinophils % Neutrophils # Eosinophils # Sodium Level 146 H Potassium Level 3.4 L Chloride Level 108 Carbon Dioxide Level 26 Anion Gap 15 Blood Urea Nitrogen 37 H Creatinine 1.64 H Glucose Level 308 H Calcium Level 8.7 Phosphorus Level 3.2 # Magnesium Level 1.8 Total Bilirubin 0.2 Direct Bilirubin 0.00 Indirect Bilirubin 0.2 Aspartate Amino Transf (AST/SGOT) 86 H Alanine Aminotransferase (ALT/SGPT) 117 H Alkaline Phosphatase 77 Total Protein 6.4 Albumin 3.7 Globulin 2.70 Albumin/Globulin Ratio 1.37 Amylase Level 82 Lipase 75 Blood Gas Specimen Source Blood arterial Arterial Blood Date Drawn 02/08/2017 6:00:20 AM Arterial Blood pH (Temp corrected) 7.493 H Arterial Blood pCO2 (Temp correct) 30.1 L Arterial Blood pO2 (Temp corrected) 65.5 L Arterial Blood HCO3 23.6 Arterial Blood Base Excess -0.5 Arterial Blood Oxygen Saturation 96.4 Sid Test ACCEPTAB Arterial Blood Gas Puncture Site Right Radial Arterial Blood Carboxyhemoglobin 0.3 Arterial Blood Methemoglobin 0.2 Blood Gas A-a O2 Differential 335.6 H Oxyhemoglobin Percent 95.9 Total Hemoglobin 11.2 L Blood Gas Temperature 32.3 Blood Gas Respiration Rate 20.0 Blood Gas Actual Respiration Rate 20 Blood Gas Modality VENT - AC FiO2 60.0 Blood Gas Tidal Volume 500.0 Blood Gas Low PEEP Setting 5.0 Blood Gas Notified Whom MA Blood Gas Notified Time 02/08/2017 6:15:59 AM Test 02/08/17 07:04 02/08/17 08:33 02/08/17 09:22 02/08/17 10:04 Bedside Glucose 268 H 200 170 137 Medications Medications Current Medications Vecuronium [place] 100 mg/ Dextrose 100 ml @ 5.7 mls/hr [id number] ONCE IV Last administered on 02/07/17 23:24; Admin Dose 5.7 MLS/HR; Start 02/07/17 at 21:31; Stop 02/08/17 at 15:03 Midazolam HCl 50 ml @ 1 mls/hr TITRATE IV Last administered on 02/07/17 23:25; Admin Dose 2 MLS/HR; Start 02/07/17 at 22:30 Fentanyl (Sublimaze) 100 ml @ 2.5 mls/hr TITRATE IV Last administered on 23:24; Admin Dose 2.5 MLS/HR; Start 02/07/17 at 22:30 Ondansetron HCl (Zofran Inj) 4 mg Q6H PRN IV NAUSEA AND/OR VOMITING; Start 02/07 at 22:30 Acetaminophen (Tylenol Liquid) 650 mg Q6H PRN PO PAIN LEVEL 1-3 OR FEVER; Start 02/07/17 at 22:30 Morphine Sulfate (morphine) 2 mg Q4H PRN IV PAIN LEVEL 7-10; Start 02/07/17 at 22:30 Lorazepam (Ativan) 1 mg Q2H PRN IV ANXIETY; Start 02/07/17 at 22:30 Famotidine (Pepcid Iv) 20 mg DAILY IV Last administered on 02/08/17 09:02; Admin Dose 20 MG; Start 02/08/17 at 09:00 Heparin Sodium (Porcine) (Heparin (5000 Units/0.5 ml)) 5,000 unit Q12 SC Last administered on 02/08/17 09:03; Admin Dose 5,000 UNIT; Start 02/08/17 at 09:00 Acetaminophen (Tylenol Supp) 650 mg Q4H PRN OK TEMP > 37C; Start 02/07/17 at 22: 30 Acetaminophen (Tylenol Liquid) 650 mg Q4H PRN PO TEMP > 37C; Start 02/07/17 at 22:30 Acetaminophen (Tylenol Supp) 500 mg Q6H OK ; Start 02/08/17 at 22:30 Acetaminophen 500 mg 500 mg Q6H PO ; Start 02/08/17 at 22:30 Cefepime HCl (Maxipime 1gm/50 ml (Pmx)) 50 ml @ 100 mls/hr Q12 IVPB Last administered on 02/08/17 09:20; Admin Dose 100 MLS/HR; Start 02/08/17 at 09:00 Meperidine HCl (Demerol) 12.5 mg Q4H PRN IV POST OPERATIVE SHIVERING; Start 02/08/17 at 02:00 Meperidine HCl (Demerol) 25 mg Q4H PRN IV POST OPERATIVE SHIVERING; Start at 02:00 Eye Lubricant (Akwa Oint) 1 applic Q6 BOTH EYES Last administered on 02/08/17 04:12; Admin Dose 1 APPLIC; Start 02/08/17 at 02:00 Eye Lubricant (Artificial Tears Oph) 2 drop Q6 BOTH EYES Last administered on 04:11; Admin Dose 2 DROP; Start 02/08/17 at 02:00 Diagnostic Test (Pha) (Accu-Chek) 1 ea Q1H XX Last administered on 02/08/17 09: 28; Admin Dose 1 EA; Start 02/08/17 at 02:00 Dextrose (D50w Syringe) 25 ml Q15M PRN IV Till BS 80 mg/dL or above x2; Start 02/08/17 at 02:00 Dextrose 50 ml 50 ml Q15M PRN IV Till BS 80 mg/dL or above x2; Start 02/08/17 at 02:00 Norepinephrine 16 mg/Dextrose 500 ml @ 1.87 mls/hr TITRATE IV ; Start 02/08/17 at 07:00 Potassium Chloride/Sodium Chloride (1/2 NS + KCl 20 Meq) 1,000 ml @ 125 mls/hr Q8H IV Last administered on 02/08/17t 09:20; Admin Dose 125 MLS/HR; Start at 09:00 JARROD MALLORY Feb 08, 2017 10:22
--- NOTE | 2017-02-08 10:54 | PN ---
DATE: 02/08/2017 SUBJECTIVE: Patient is intubated on hypothermia protocol. Family is at the bedside. OBJECTIVE: VITAL SIGNS: Temperature 90.2, pulse is 66 to 82, respirations 20, blood pressure is 131/63, satura ting at 100% on mechanical ventilation, FIO2 at 60, PHYSICAL EXAMINATION GENERAL: The patient lying in bed, intubated and sedated. HEENT: Unable to fully assess. NECK: Supple, no thyromegaly. LUNGS: Distant breath sounds bilaterally. CARDIOVASCULAR: S1, S2 heard. No rubs or gallops. ABDOMEN: Soft, nontender, nondistended. Normal bowel sounds. MUSCULOSKELETAL: No lower extremity edema bilaterally. NEUROLOGIC: Unable to fully assess as the patient is intubated and sedated. LABORATORY DATA: WBC 22.7, hemoglobin 9.8, hematocrit 31.4, platelets 361. Sodium 146, potassium 3 .4, chloride 108, CO2 26, BUN of 37, creatinine 1.6, glucose of 308. Coags show an INR of 1.56. UA shows trace leukocyte esterase positive. The latest ABG this morning shows pH of 7.49, pCO2 of 30, PaO2 of 65 and bicarbonate of 23. IMAGING: Chest x-ray shows diffuse interstitial infiltrates of the left greater than right lung aga in noted. Unable to exclude interstitial lung disease or diffuse interstitial pneumonia. ASSESSMENT AND PLAN: 1. A 76-year-old lady who left against medical advice earlier yesterday from [facility] who comes in with acute respiratory failure secondary to severe bilateral pneumonia, cardiac arrest, status post cardiopulmonary resuscitation, now on hypothermia protocol. 2. Cardiac arrest and status post return of spontaneous circulation, again continue hypothermia pro tocol. We will get an EEG and get a neurology consult, pulmonary consult because of respiratory ca lure. Patient is intubated. Continue broad spectrum antibiotics as well. 3. Respiratory distress. Again, she has bilateral pneumonia. She has cardiac arrest, intubated aga in, follow pulmonary recommendations. Continue mechanical ventilation, broad spectrum antibiotics. Follow up final culture results. Tylenol p.r.n. for pain and fevers, check an A1c, thyroid-stimula ting hormone and lipid panel. 4. History of type 2 diabetes, hyperglycemia. Follow up A1c. Consider insulin drip as well. 5. History of chronic obstructive pulmonary disease, see #2. 6. History of atrial flutter and supraventricular tachycardia. Will get a cardiology consult, charlene montgomery monitor heart rate in the ICU setting. 7. For sepsis, again secondary to what looks like healthcare-associated pneumonia. See #1 and #2 a s far as broad spectrum antibiotics, IV fluids. 8. History of hypertension. Again, monitor for now. 9. Gastrointestinal prophylaxis. H2 sonja. 10. Deep venous thrombosis prophylaxis. ____sequential compression devices. 11. ____. Time spent on patient here today 40 minutes. Dictated By: MIGUEL ANGEL KUO Conf#: [id number] DID#: [id number]
[2017-02-08 11:23] LABS: LYMPHOCYTES # 0.7 10^3/ul (0.8-2.9); MONOCYTE # 1.1 10^3/ul (0.3-0.9); NEUTROPHIL # 19.5 10^3/ul (1.6-7.5)
[2017-02-08] MEDS ORDERED: MAGNESIUM SULFATE 2 GM/50 ML 50 ML IVPB ONE (11:30)
--- NOTE | 2017-02-08 11:57 | CONS ---
Date/Time of Note Date/Time of Note DATE: 02/08/17 TIME: 11:52 Assessment/Plan Assessment/Plan Chief Complaint/Hosp Course 76 yo female with recent admission for pneumonia, with hx of HTN, COPD, SVT, aflutter, DM admitted post cardiac arrest on hypothermia protocol. -MRI Brain ordered to eval for extent of hypoxic injury currenly absent brainstem reflexes will continue to reexamine, poor prognosis for a meaningful neurologic recovery -EEG pending will follow Problems: Consultation Date/Type/Reason Admit Date/Time Feb 07, 2017 at 22:31 Date of Consultation: Feb 08, 2017 Type of Consultation: Neurology Reason for Consultation cardiac arrest unresponsive Referring Provider: MIGUEL ANGEL MORGAN Hx of Present Illness 76 year old female with history of hypertension, COPD, SVT, aflutter, DM, prior tracheostomy admitted with cardiac arrest. She was admitted to [facility] day prior to admission with pneumonia, signed out AMA. She returned home and started c/o shortness of breath and became unresponsive, on arrival of EMS noted to be in asystole was down for atleast 15 mins, required two rounds of chest compression and epinephrine prior to ROSC. Initial Head CT unrevealing. She was admitted to the ICU on hypothermia protocol. Subjective hx not possible: pt non-verbal, pt critical Social History Smoking Status: Unknown if ever smoked Exam/Review of Systems Vital Signs Vitals Vital Signs Date Time Temp Pulse Resp B/P Pulse Ox O2 Delivery O2 Flow Rate FiO2 02/08/17 11:00 91.0 78 20 144/53 100 Mechanical Ventilator 02/08/17 09:56 60 Intake and Output 02/07/17 02/07/17 02/08/17 15:00 23:00 07:00 Intake Total 840.1 ml Output Total 3581 ml Balance -2740.9 ml Exam on low dose sedation unarousable absent response to verbal stimuli sternal rub CN: constricted pupils non reactive absent corneal absent gag reflex absent OCM Motor no response to noxious Results Result Diagram: 02/08/17 0519 02/08/17 0519 Results 24 hrs Laboratory Tests Test 02/07/17 21:14 02/07/17 21:20 02/07/17 21:31 02/07/17 22:50 White Blood Count 24.7 H Red Blood Count 3.39 L Hemoglobin 9.6 L Hematocrit 32.1 L Mean Corpuscular Volume 94.7 Mean Corpuscular Hemoglobin 28.3 L Mean Corpuscular Hemoglobin Concent 29.9 L Red Cell Distribution Width 15.9 H Platelet Count 478 H Mean Platelet Volume 9.8 Neutrophils % 55.0 Band Neutrophils % 3.0 Lymphocytes % 31.0 Reactive Lymphocytes % 3.0 Monocytes % 4.0 Eosinophils % 1.0 Metamyelocytes % 1.0 H Myelocytes % 2.0 H Neutrophils # 13.6 H Lymphocytes # 7.7 H Monocytes # 1.0 H Eosinophils # 0.2 Metamyelocytes # 0.2 Myelocytes # 0.5 Platelet Estimate PLT APPEAR INCREASED Macrocytosis OCCASIONAL Prothrombin Time 18.8 H Prothrombin Time Ratio 1.5 INR International Normalized Ratio 1.56 Activated Partial Thromboplast Time 34.8 Sodium Level 144 Potassium Level 5.4 H Chloride Level 106 Carbon Dioxide Level 21 Anion Gap 22 H Blood Urea Nitrogen 35 H Creatinine 1.96 H Glucose Level 310 H Calcium Level 9.1 Phosphorus Level 8.1 H Magnesium Level 2.3 Total Bilirubin 0.1 L Direct Bilirubin 0.00 Indirect Bilirubin 0.1 Aspartate Amino Transf (AST/SGOT) 88 H Alanine Aminotransferase (ALT/SGPT) 82 H Alkaline Phosphatase 78 Troponin I 0.015 Total Protein 6.5 Albumin 3.8 Globulin 2.70 Albumin/Globulin Ratio 1.40 Bedside Glucose 239 H Blood Gas Specimen Source Blood arterial Arterial Blood Date Drawn 02/07/2017 10:02:07 PM Arterial Blood pH (Temp corrected) 7.185 *L Arterial Blood pCO2 (Temp correct) 60.1 H Arterial Blood pO2 (Temp corrected) 165.6 H Arterial Blood HCO3 22.2 Arterial Blood Base Excess -6.4 L Arterial Blood Oxygen Saturation 98.5 Sid Test ACCEPTAB Arterial Blood Gas Puncture Site Right Radial Arterial Blood Carboxyhemoglobin 0.3 Arterial Blood Methemoglobin 0.6 Blood Gas A-a O2 Differential 487.3 H Oxyhemoglobin Percent 97.6 Total Hemoglobin 10.7 L Blood Gas Temperature 37.0 Blood Gas Respiration Rate 16.0 Blood Gas Actual Respiration Rate 16 Blood Gas Modality VENT - AC FiO2 100.0 Blood Gas Tidal Volume 500.0 Blood Gas Low PEEP Setting 5.0 Blood Gas Inspiratory Pressure 32.0 Blood Gas Critical Value Read Back Donna MEJIA MD Blood Gas Notified Whom AA Blood Gas Notified Time 02/07/2017 10:14:07 PM Urine Color LT. YELLOW Urine Clarity CLEAR Urine pH 5.5 Urine Specific [place] 1.020 Urine Ketones NEGATIVE Urine Nitrite NEGATIVE Urine Bilirubin NEGATIVE Urine Urobilinogen 0.2 E.U./dL Urine Leukocyte Esterase TRACE H Urine Microscopic RBC 25-50 Urine Microscopic WBC 2-5 Urine Squamous Epithelial Cells MODERATE Urine Amorphous Urates MODERATE Urine Bacteria MANY Urine Hemoglobin 3+ H Urine Glucose NEGATIVE Urine Total Protein 2+ H Test 02/08/17 00:00 02/08/17 02:10 02/08/17 04:08 02/08/17 05:00 Blood Gas Specimen Source Blood arterial Arterial Blood Date Drawn 02/08/2017 12:02:28 AM Arterial Blood pH (Temp corrected) 7.379 Arterial Blood pCO2 (Temp correct) 40.3 Arterial Blood pO2 (Temp corrected) 65.8 L Arterial Blood HCO3 23.8 Arterial Blood Base Excess -1.9 Arterial Blood Oxygen Saturation 94.3 L Sid Test ACCEPTAB Arterial Blood Gas Puncture Site Left Radial Arterial Blood Carboxyhemoglobin 0.3 Arterial Blood Methemoglobin 0.4 Blood Gas A-a O2 Differential 320.9 H Oxyhemoglobin Percent 93.6 Total Hemoglobin 10.1 L Blood Gas Temperature 34.8 Blood Gas Respiration Rate 20.0 Blood Gas Actual Respiration Rate 20 Blood Gas Modality VENT - AC FiO2 60.0 Blood Gas Tidal Volume 500.0 Blood Gas Low PEEP Setting 5.0 Blood Gas Inspiratory Pressure 33.0 Blood Gas Notified Whom AA Blood Gas Notified Time 02/08/2017 12:13:42 AM Lactic Acid Level 1.1 1.0 Lactate Dehydrogenase 1124 H Creatine Kinase 297 H Creatine Kinase Index 2.1 Creatinine Kinase MB (Mass) 6.34 H Troponin I 0.103 Bedside Glucose 278 H Sodium Level 148 H Potassium Level 3.6 Chloride Level 112 H Carbon Dioxide Level 26 Anion Gap 14 # Blood Urea Nitrogen 36 H Creatinine 1.76 H Glucose Level 291 H Calcium Level 7.9 L Total Bilirubin 0.1 L Direct Bilirubin 0.00 Indirect Bilirubin 0.1 Aspartate Amino Transf (AST/SGOT) 90 H Alanine Aminotransferase (ALT/SGPT) 109 H Alkaline Phosphatase 67 Total Protein 5.7 L Albumin 3.3 Globulin 2.40 Albumin/Globulin Ratio 1.37 Test 02/08/17 05:15 02/08/17 05:19 02/08/17 06:00 02/08/17 06:03 Bedside Glucose 297 H 305 H White Blood Count 22.7 H Red Blood Count 3.50 L Hemoglobin 9.8 L Hematocrit 31.4 L Mean Corpuscular Volume 89.7 Mean Corpuscular Hemoglobin 28.0 L Mean Corpuscular Hemoglobin Concent 31.2 L Red Cell Distribution Width 15.4 H Platelet Count 361 # Mean Platelet Volume 9.7 Neutrophils % 86.0 H Band Neutrophils % 6.0 H Lymphocytes % 3.0 L Monocytes % 5.0 Eosinophils % Neutrophils # 19.5 H Lymphocytes # 0.7 L Monocytes # 1.1 H Eosinophils # Sodium Level 146 H Potassium Level 3.4 L Chloride Level 108 Carbon Dioxide Level 26 Anion Gap 15 Blood Urea Nitrogen 37 H Creatinine 1.64 H Glucose Level 308 H Calcium Level 8.7 Phosphorus Level 3.2 # Magnesium Level 1.8 Total Bilirubin 0.2 Direct Bilirubin 0.00 Indirect Bilirubin 0.2 Aspartate Amino Transf (AST/SGOT) 86 H Alanine Aminotransferase (ALT/SGPT) 117 H Alkaline Phosphatase 77 Total Protein 6.4 Albumin 3.7 Globulin 2.70 Albumin/Globulin Ratio 1.37 Amylase Level 82 Lipase 75 Blood Gas Specimen Source Blood arterial Arterial Blood Date Drawn 02/08/2017 6:00:20 AM Arterial Blood pH (Temp corrected) 7.493 H Arterial Blood pCO2 (Temp correct) 30.1 L Arterial Blood pO2 (Temp corrected) 65.5 L Arterial Blood HCO3 23.6 Arterial Blood Base Excess -0.5 Arterial Blood Oxygen Saturation 96.4 Sid Test ACCEPTAB Arterial Blood Gas Puncture Site Right Radial Arterial Blood Carboxyhemoglobin 0.3 Arterial Blood Methemoglobin 0.2 Blood Gas A-a O2 Differential 335.6 H Oxyhemoglobin Percent 95.9 Total Hemoglobin 11.2 L Blood Gas Temperature 32.3 Blood Gas Respiration Rate 20.0 Blood Gas Actual Respiration Rate 20 Blood Gas Modality VENT - AC FiO2 60.0 Blood Gas Tidal Volume 500.0 Blood Gas Low PEEP Setting 5.0 Blood Gas Notified Whom MA Blood Gas Notified Time 02/08/2017 6:15:59 AM Test 02/08/17 07:04 02/08/17 08:33 02/08/17 09:22 02/08/17 10:04 Bedside Glucose 268 H 200 170 137 Test 02/08/17 10:55 Bedside Glucose 102 Medications Medications Current Medications Vecuronium [place] 100 mg/ Dextrose 100 ml @ 5.7 mls/hr [id number] ONCE IV Last administered on 02/07/17 23:24; Admin Dose 5.7 MLS/HR; Start 02/07/17 at 21:31; Stop 02/08/17 at 15:03 Midazolam HCl 50 ml @ 1 mls/hr TITRATE IV Last administered on 02/07/17 23:25; Admin Dose 2 MLS/HR; Start 02/07/17 at 22:30 Fentanyl (Sublimaze) 100 ml @ 2.5 mls/hr TITRATE IV Last administered on 23:24; Admin Dose 2.5 MLS/HR; Start 02/07/17 at 22:30 Ondansetron HCl (Zofran Inj) 4 mg Q6H PRN IV NAUSEA AND/OR VOMITING; Start 02/07 at 22:30 Acetaminophen (Tylenol Liquid) 650 mg Q6H PRN PO PAIN LEVEL 1-3 OR FEVER; Start 02/07/17 at 22:30 Morphine Sulfate (morphine) 2 mg Q4H PRN IV PAIN LEVEL 7-10; Start 02/07/17 at 22:30 Lorazepam (Ativan) 1 mg Q2H PRN IV ANXIETY; Start 02/07/17 at 22:30 Famotidine (Pepcid Iv) 20 mg DAILY IV Last administered on 02/08/17 09:02; Admin Dose 20 MG; Start 02/08/17 at 09:00 Heparin Sodium (Porcine) (Heparin (5000 Units/0.5 ml)) 5,000 unit Q12 SC Last administered on 02/08/17 09:03; Admin Dose 5,000 UNIT; Start 02/08/17 at 09:00 Acetaminophen (Tylenol Supp) 650 mg Q4H PRN HI TEMP > 37C; Start 02/07/17 at 22: 30 Acetaminophen (Tylenol Liquid) 650 mg Q4H PRN PO TEMP > 37C; Start 02/07/17 at 22:30 Acetaminophen (Tylenol Supp) 500 mg Q6H HI ; Start 02/08/17 at 22:30 Acetaminophen 500 mg 500 mg Q6H PO ; Start 02/08/17 at 22:30 Cefepime HCl (Maxipime 1gm/50 ml (Pmx)) 50 ml @ 100 mls/hr Q12 IVPB Last administered on 02/08/17 09:20; Admin Dose 100 MLS/HR; Start 02/08/17 at 09:00 Meperidine HCl (Demerol) 12.5 mg Q4H PRN IV POST OPERATIVE SHIVERING; Start 02/08/17 at 02:00 Meperidine HCl (Demerol) 25 mg Q4H PRN IV POST OPERATIVE SHIVERING; Start at 02:00 Eye Lubricant (Akwa Oint) 1 applic Q6 BOTH EYES Last administered on 02/08/17 04:12; Admin Dose 1 APPLIC; Start 02/08/17 at 02:00 Eye Lubricant (Artificial Tears Oph) 2 drop Q6 BOTH EYES Last administered on 04:11; Admin Dose 2 DROP; Start 02/08/17 at 02:00 Diagnostic Test (Pha) (Accu-Chek) 1 ea Q1H XX Last administered on 02/08/17 11: 27; Admin Dose 1 EA; Start 02/08/17 at 02:00 Dextrose (D50w Syringe) 25 ml Q15M PRN IV Till BS 80 mg/dL or above x2; Start 02/08/17 at 02:00 Dextrose 50 ml 50 ml Q15M PRN IV Till BS 80 mg/dL or above x2; Start 02/08/17 at 02:00 Norepinephrine 16 mg/Dextrose 500 ml @ 1.87 mls/hr TITRATE IV ; Start 02/08/17 at 07:00 Potassium Chloride/Sodium Chloride 1,000 ml @ 125 mls/hr Q8H IV Last administered on 02/08/17 09:20; Admin Dose 125 MLS/HR; Start 02/08/17 at 09:00 Magnesium Sulfate (Magnesium Sulfate 2 Gm/50 ml) 50 ml @ 25 mls/hr ONCE ONCE IVPB ; Start 02/08/17 at 11:30; Stop 02/08/17 at 13:29 JUVENCIO POOLE MD Feb 08, 2017 11:57
[2017-02-08] MEDS ORDERED: hydrALAzine 20 MG INJ IV PRN (12:00)
--- NOTE | 2017-02-08 12:35 | CONS ---
DATE OF ADMISSION: 02/07/2017 DATE OF CONSULTATION: 02/08/2017 TYPE OF CONSULTATION: Cardiac REASON FOR CONSULTATION: Cardiopulmonary arrest. REQUESTING PHYSICIAN: Dr. Morgan from the hospitalist service. HISTORY OF PRESENT ILLNESS: Ms. Adam is a 76-year-old female with history of hypertension, COPD, atrial flutter, diabetes mellitus, prior trach, who has recently been admitted to [place] with pneumonia and left against medical advice on the day of her arrest. The patient returned home and began to have complaints of shortness of breath and then became unresponsive. Upon arrival of paramedics, the patient was pulseless in asystole apneic. The patient had CPR initiated and attempted to be resuscitated in the field unsuccessfully. The patient was brought here to the emergency department where after several rounds of ACLS and intubation, the patient did have return of a spontaneous rhythm and blood pressure. The patient was placed on hypothermic protocol and was then admitted to the ICU. Initially upon arrival, temperature 98.1, blood pressure 119/80, pulse 101, respiratory 13, saturating 97% on FIO2 100% with labs notable for white cells 24.7, hemoglobin 9.6, a platelet count of 478. Sodium 144, potassium 5.4, creatinine 1.96, BUN 35, AST 88, ALT 82. INR 1.56. ABG revealing a pH of 7.185, pCO2 of 60, pO2 of 165. The patient's electrocardiogram revealed sinus rhythm, rate 83, first degree AV block, right axis deviation, inferior and lateral biphasic T-wave abnormalities. Since arrival in the ICU, the patient has had a second troponin return negative. The patient remains unresponsive, but on hypothermia protocol. PAST MEDICAL HISTORY: As above in HPI. MEDICATIONS CURRENTLY IN HOSPITAL: 1. Tylenol p.r.n. 2. Magnesium sulfate IV. 3. Cefepime IV. 4. Potassium repletion protocol. 5. Insulin sliding scale. 6. Versed. 7. Fentanyl. 3. Tylenol p.r.n. 4. Morphine p.r.n. 5. Ativan p.r.n. 6. Vancomycin IV. 7. Vecuronium. ALLERGIES: NO KNOWN DRUG ALLERGIES. SOCIAL HISTORY: No tobacco, ETOH or illicit drug use. FAMILY HISTORY: No history of sudden cardiac or early CAD. REVIEW OF SYSTEMS: As above in HPI. CONSTITUTIONAL: No fevers, chills. PULMONARY: Respiratory failure, status post intubation. GASTROINTESTINAL: No vomiting. GENITOURINARY: No hematuria. MUSCULOSKELETAL: Degenerative joint disease. PSYCHIATRIC: No documented psych history. NEUROLOGIC: Encephalopathy. PHYSICAL EXAMINATION: VITAL SIGNS: Temperature of 91 during hypothermic protocol at this time, blood pressure most recently 144/53, pulse 78, respiratory rate 20, satting 100%. GENERAL: The patient is nonresponsive, sedated. NECK: JVP of 8 to 9 cm water. CHEST: Upper airway sounds are rhonchorous sounds. HEART: Regular rate and rhythm. Normal S1, S2, I/ systolic murmur, nondisplaced PMI. ABDOMEN: Positive bowel sounds, soft. EXTREMITIES: No edema, 1+ pulses bilaterally, posterior tibial. LABORATORY DATA: As above in HPI with most recently from today, sodium 146, potassium 3.4, creatinine 1.64, BUN 37. White count 22.7, hemoglobin 9.8, platelet count 361, UA positive. ABG revealing a pH of 7.49, a PaO2 of 65, pCO2 of 30. IMAGING STUDIES: Chest x-ray from today revealing diffuse interstitial infiltrates in the left greater than right, and a KUB that revealed constipation pattern without evidence of bowel obstruction, right inguinal ____ catheterization satisfactory position. ECG from this morning reveals sinus rhythm, first-degree block, rate of 74, normal axis, normal intervals with biphasic T-wave abnormalities in the lateral leads. IMPRESSION: 1. Status post cardiopulmonary arrest. 2. Abnormal electrocardiogram 3. Hypertension. 4. Respiratory failure. 5. History of atrial fibrillation, atrial flutter. 6. Possible congestive heart failure, pneumonia by chest x-ray. 7. Encephalopathy. 8. Renal failure. 9. Hypernatremia. 10. Anemia. 11. Leukocytosis. 12. Urinary tract infection. RECOMMENDATIONS: 1. At this time, would maintain patient on hypothermic protocol with rewarming as per protocol. 2. Continue to complete the patient's rule out for myocardial infarction to ensure the patient's constellation of symptoms were not the result of or would not result in an acute myocardial infarction. 3. Check a 2D echocardiogram to further assess the patient's ejection fraction , wall motion and major valve abnormalities. 4. Continue the patient's antibiotics and follow up all culture data. 5. Follow the patient's blood pressure closely and will give p.r.n. IV push hydralazine as necessary. Thank you for allowing me to take part in the care of this patient. I will continue to follow along very closely with you. Further recommendations will be made as the patient progresses through her inpatient hospital clinical course. Dictated By: LIONEL ARVIZU/SWAPNA Conf#: [id number] DID#: [id number] CC: MIGUEL ANGEL MORGAN;*Alexandra* MTDD
[2017-02-08] MEDS: D5W-0.45 NACL + KCL 20 MEQ 1,000 ML IV SCH ×2 (14:46→21:08)
[2017-02-08 15:37] LABS: ALBUMIN 3.7 g/dl (3.3-4.9); ALBUMIN/GLOBULIN RATIO 1.32; BILIRUBIN,INDIRECT 0.2 mg/dl (0-1.1); BILIRUBIN,TOTAL 0.2 mg/dl (0.2-1.3); CALCIUM 8.9 mg/dl (8.4-10.2); CHOL/HDL RATIO 2.4 RATIO; CREATININE 1.54 mg/dl (0.44-1.00); MAGNESIUM 2.8 mg/dl (1.7-2.5); PHOSPHORUS 2.3 mg/dl (2.5-4.9); POTASSIUM 3.4 mmol/L (3.5-5.1); TOTAL PROTEIN 6.5 g/dl (6.1-8.1)
[2017-02-08 15:48] LABS: CK-MB 8.01 ng/ml (0.0-2.4); TROPONIN-I 0.071 ng/ml (0.00-0.12)
[2017-02-08 18:15] LABS: AADO2 Arterial 296.5 mmHg (7.0-24.0); Allen Test ACCEPTAB; Arterial Base Excess 2.5 mmol/L (-3.0-3); Arterial COHb 0.3 % (0.0-3.0); Arterial Fraction of Oxyhgb 97.8 % (93.0-99.0); Arterial HCO3 25.8 mmol/L (22.0-26.0); Arterial MetHb 0.3 % (0.0-1.5); Arterial Total Hemglobin 11.7 g/dl (12.0-18.0); MODE VENT - AC
--- NOTE | 2017-02-08 20:03 | RADRPT ---
Echocardiogram Report Patient Name: KYMBERLY HERNANDEZ Gender: Female Date: 1940 Study Date: 08-Feb-2017 Casting Machine Set Up Operator: Jenny Engel RDCS Location: 119 Ref. Physician: CASSANDRA TAYLOR Quality: Good Procedures: Transthoracic echocardiogram with complete 2D, M-Mode, and doppler examination. Indications: Cardiac Arrest. 2D/M Mode Doppler Measurement Value Normal Ranges Measurement Value Normal Ranges LVIDd 2D 4.1 3.5 - 5.6 cm AV Peak Cesar 1.5 m/sec LVIDs 2D 2.6 2.1 - 4.1 cm AV Peak PG 8.0 mmHg FS 2D 37.1 % LVOT Peak Cesar 0.9 m/sec LVPWd 2D 1.2 0.6 - 1.1 cm LVOT Peak PG 3.0 mmHg IVSd 2D 1.3 0.6 - 1.1 cm MV E Peak Cesar 0.8 m/sec IVS/LVPW 2D 1.1 MV A Peak Cesar 1.2 m/sec AoR Diam 2D 2.5 2.0 - 3.7 cm MV E/A 0.7 LA/Ao 2D 2 0 - 1 MV Decel Time 176 msec EDV 2D 69.9 cm3 MV E/A 0.7 ESV 2D 17.4 cm3 TR Peak Cesar 2.5 m/sec LA Dimen 2D 4.1 2.3 - 4.0 cm TR Peak PG 25.0 mmHg RVSP 33.0 mmHg Findings Left Ventricle: Normal left ventricular systolic function. Normal left ventricular cavity size. Moderate concentric left ventricular hypertrophy. Ejection fraction is visually estimated at 5560 %. Tissue Doppler/Mitral Doppler indices are consistent with impaired relaxation (Stage I diastolic dysfunction). Right Ventricle: Normal right ventricular size. Normal right ventricular systolic function. Left Atrium: There is mild enlargement of left atrium. Right Atrium: The right atrium is normal in size. Mitral Valve: Mild mitral leaflet calcification. Moderate mitral annular calcification. Trace mitral regurgitation. Aortic Valve: No significant aortic stenosis or insufficiency. Aortic cusps appear mildly calcified. Tricuspid Valve: Normal appearance and function of the tricuspid valve with trace physiologic regurgitation. Normal right ventricular systolic pressure. Estimated peak PA systolic pressure 33 mmHg. Pulmonic Valve: Normal pulmonic valve appearance. There is trace pulmonic regurgitation. Pericardium: Normal pericardium with no significant pericardial effusion. Aorta: Normal aortic root. IVC: Inferior vena cava without respiratory collapse, however, patient on ventilator. Conclusions 1.Normal left ventricular systolic function. Normal left ventricular cavity size. Moderate concentric left ventricular hypertrophy. Ejection fraction is visually estimated at 55-60 %. Tissue Doppler/Mitral Doppler indices are consistent with impaired relaxation (Stage I diastolic dysfunction). 2.There is mild enlargement of left atrium. 3.Mild mitral leaflet calcification. Moderate mitral annular calcification. Trace mitral regurgitation. 4.Normal appearance and function of the tricuspid valve with trace physiologic regurgitation. Normal right ventricular systolic pressure. Estimated peak PA systolic pressure 33 mmHg. 5.Normal pulmonic valve appearance. There is trace pulmonic regurgitation. Electronically Signed By: Alton Fuentes 08-Feb-2017 20:02:31 -0700 Patient Name: KYMBERLY HERNANDEZ Study Date: 08-Feb-2017 [id number]
[2017-02-08 21:32] LABS: CALCIUM 9.2 mg/dl (8.4-10.2); CREATININE 1.42 mg/dl (0.44-1.00); MAGNESIUM 2.4 mg/dl (1.7-2.5)
[2017-02-08 22:12] LABS: CK-MB 7.47 ng/ml (0.0-2.4); TROPONIN-I 0.064 ng/ml (0.00-0.12)
[2017-02-08] MEDS: ACETAMINOPHEN 650 MG SUPP PR SCH (22:30)
[2017-02-08] MEDS: ACETAMINOPHEN 650MG/20.3ML CUP PO SCH (23:16)
[2017-02-09] VITALS (84 sets, daily range): BP systolic 103–162; BP diastolic 46–68; PULSE 79–122; RESP 16–34
[2017-02-09] MEDS: ACCU-CHEK XX SCH ×24 (00:15→23:09)
[2017-02-09] MEDS: ARTIFICIAL TEARS 15 ML OPH BOTH EYES SCH ×4 (00:15→17:43)
[2017-02-09] MEDS: OCULAR LUBRICANT 3.5 GM OPH OINT BOTH EYES SCH ×4 (00:15→17:42)
[2017-02-09 01:20] LABS: ALBUMIN 3.4 g/dl (3.3-4.9); ALBUMIN/GLOBULIN RATIO 1.17; BILIRUBIN,INDIRECT 0.2 mg/dl (0-1.1); BILIRUBIN,TOTAL 0.2 mg/dl (0.2-1.3); CALCIUM 9.1 mg/dl (8.4-10.2); CREATININE 1.42 mg/dl (0.44-1.00); MAGNESIUM 2.3 mg/dl (1.7-2.5); PHOSPHORUS 2.8 mg/dl (2.5-4.9); POTASSIUM 3.8 mmol/L (3.5-5.1); TOTAL PROTEIN 6.3 g/dl (6.1-8.1)
[2017-02-09 01:22] LABS: INR 1.29; PROTIME 16.2 Sec (12.2-14.2); PT RATIO 1.3
[2017-02-09 01:23] LABS: PARTIAL THROMBOPLASTIN TIME 36.2 Sec (25.0-35.0)
[2017-02-09] MEDS: ACETAMINOPHEN 650 MG SUPP PR SCH ×4 (04:30→22:30)
[2017-02-09] MEDS: ACETAMINOPHEN 650MG/20.3ML CUP PO SCH ×4 (05:10→23:08)
[2017-02-09] MEDS: D5W-0.45 NACL + KCL 20 MEQ 1,000 ML IV SCH ×3 (05:11→19:13)
[2017-02-09 06:00] LABS: AADO2 Arterial 203.4 mmHg (7.0-24.0); Allen Test ACCEPTAB; Arterial Base Excess 3.7 mmol/L (-3.0-3); Arterial COHb 0.3 % (0.0-3.0); Arterial Fraction of Oxyhgb 97.1 % (93.0-99.0); Arterial HCO3 28.6 mmol/L (22.0-26.0); Arterial MetHb 0.6 % (0.0-1.5); Arterial Total Hemglobin 13.2 g/dl (12.0-18.0); MODE VENT - AC
[2017-02-09] MEDS: MIDAZOLAM (DRIP) 50 mg/50 mL 50 ML IV SCH (06:13)
[2017-02-09] MEDS: INSULIN HUMAN REGULAR 100 UNIT in SOD CHLORIDE 0.9% 99 ML IV SCH (06:22)
[2017-02-09 06:45] LABS: ADD SCAN DIFF NO
[2017-02-09 06:58] LABS: ABNORMAL IP MESSAGE 1; HEMOGLOBIN 10.4 g/dl (12.0-16.0); MEAN CORPUSCULAR HEMOGLOBIN 27.8 pg (29.0-33.0); MEAN CORPUSCULAR HGB CONC 32.5 g/dl (32.0-37.0); MEAN CORPUSCULAR VOLUME 85.6 fl (82.0-101.0); MEAN PLATELET VOLUME 9.7 fl (7.4-10.4); PLATELET COUNT 461 10^3/UL (140-415); RED BLOOD COUNT 3.74 10^6/ul (4.20-5.40); RED CELL DISTRIBUTION WIDTH 15.1 % (11.5-14.5); WHITE BLOOD COUNT 28.4 10^3/ul (4.8-10.8)
[2017-02-09 07:10] LABS: INR 1.4; PROTIME 17.2 Sec (12.2-14.2); PT RATIO 1.3
[2017-02-09 07:11] LABS: PARTIAL THROMBOPLASTIN TIME 42.8 Sec (25.0-35.0)
[2017-02-09 07:19] LABS: MAGNESIUM 2.2 mg/dl (1.7-2.5); PHOSPHORUS 3.6 mg/dl (2.5-4.9)
[2017-02-09] MEDS ORDERED: VECURONIUM 100 MG in DEXTROSE 5% 100 ML IV SCH (07:30)
[2017-02-09] MEDS: FAMOTIDINE 20 MG INJ IV SCH (08:26)
[2017-02-09] MEDS: CEFEPIME 1GM/50 ML (PMX) 50 ML IVPB SCH ×2 (08:26→20:11)
[2017-02-09] MEDS: HEPARIN 5,000 UNIT/0.5 ML VIAL SC SCH ×2 (08:28→20:18)
[2017-02-09 08:52] LABS: CALCIUM 9.3 mg/dl (8.4-10.2); CREATININE 1.41 mg/dl (0.44-1.00); POTASSIUM 4.6 mmol/L (3.5-5.1)
--- NOTE | 2017-02-09 08:59 | RADRPT ---
Vent Rate: 88 bpm RR Interval: 0 msec MD Interval: 196 msec QRS Duration: 118 msec QT Interval: 438 msec QTC Interval: 529 msec P-R-T [place]: 53 - 66 - 172 degrees Sinus rhythm with premature atrial complexes Possible Anterior infarct , age undetermined Prolonged QT Abnormal ECG Nonspecific ST segment changes No previous tracing available for comparison Electronically Signed By: Dar Molina [id number]
--- NOTE | 2017-02-09 09:07 | CONS ---
Date/Time of Note Date/Time of Note DATE: 02/09/17 TIME: 09:04 Assessment/Plan Assessment/Plan Additional Assessment/Plan Ventilator setting; AC of 20, tidal volume 500, PEEP of 5, 40% FiO2. Patient currently on Versed drip at 2 mg/h, rocuronium drip currently being weaned off. Insulin drip. Assessment recommend patient; 1. Patient admitted with cardiac arrest due to severe pneumonia status post CPR currently on hypothermia protocol. 2. History of renal insufficiency. 3. Severe bilateral pneumonia. However there has been significant improvement in oxygenation status. 4. At this time it is difficult to ascertain any degree of hypoxic brain injury. Patient will be reevaluated once off hypothermia protocol. 5. Diabetes. Continue current supportive care. Prognosis is guarded. 35 minutes of critical care time was spent evaluating the patient. Consultation Date/Type/Reason Admit Date/Time Feb 07, 2017 at 22:31 Initial Consult Date 02/08/17 Type of Consultation: Pulmonary/critical care Referring Provider: MIGUEL ANGEL MORGAN 24 HR Interval Summary Free Text/Dictation Patient condition remains critical. Patient currently on hypothermia protocol currently being weaned off. Patient has remained hemodynamically stable. Off pressor support. General exam; elderly woman, orally intubated, currently in no distress. Sedated and paralyzed. Exam/Review of Systems Vital Signs Vitals Vital Signs Date Time Temp Pulse Resp B/P Pulse Ox O2 Delivery O2 Flow Rate FiO2 02/09/17 07:30 89 20 120/57 100 02/09/17 07:15 94.9 02/09/17 05:30 40 02/08/17 21:00 Mechanical Ventilator Intake and Output 02/08/17 02/08/17 02/09/17 15:00 23:00 07:00 Intake Total 942 ml 1183 ml 1035 ml Output Total 1456 ml 962 ml 317 ml Balance -514 ml 221 ml 718 ml Exam HEENT exam; supple neck, positive JVD. No lymphadenopathy. Midline trachea. No thyromegaly. Orally intubated. Pupils are small bilaterally. No neck masses. No thyromegaly. Chest examination; diffuse bilateral crackles. S1-S2 audible, no murmurs. Regular rhythm. Abdomen examination; soft, no organomegaly. Bowel sounds are absent. Extremity exam; trace peripheral edema. Pulses 1+ bilaterally. ECONOMIC GEOGRAPHER examination; patient is sedated and paralyzed. Results Result Diagram: 02/09/17 0500 02/09/17 0500 Results 24 hrs Laboratory Tests Test 02/08/17 09:22 02/08/17 10:04 02/08/17 10:55 02/08/17 12:00 Bedside Glucose 170 137 102 82 Test 02/08/17 12:24 02/08/17 12:54 02/08/17 13:56 02/08/17 14:55 Bedside Glucose 77 99 114 154 Test 02/08/17 15:01 02/08/17 16:09 02/08/17 17:22 02/08/17 18:00 Sodium Level 143 Potassium Level 3.4 L Chloride Level 105 Carbon Dioxide Level 30 Anion Gap 11 Blood Urea Nitrogen 33 H Creatinine 1.54 H Glucose Level 163 # Hemoglobin A1c 7.8 H Calcium Level 8.9 Phosphorus Level 2.3 L Magnesium Level 2.8 #H Total Bilirubin 0.2 Direct Bilirubin 0.00 Indirect Bilirubin 0.2 Aspartate Amino Transf (AST/SGOT) 73 H Alanine Aminotransferase (ALT/SGPT) 106 H Alkaline Phosphatase 83 Creatine Kinase 229 H Creatine Kinase Index 3.5 Creatinine Kinase MB (Mass) 8.01 H Troponin I 0.071 Total Protein 6.5 Albumin 3.7 Globulin 2.80 Albumin/Globulin Ratio 1.32 Triglycerides Level 115 Cholesterol Level 130 LDL Cholesterol, Calculated 54 HDL Cholesterol 53 Cholesterol/HDL Ratio 2.4 Amylase Level 64 Lipase 39 Bedside Glucose 156 129 Blood Gas Specimen Source Blood arterial Arterial Blood Date Drawn 02/08/2017 6:06:50 PM Arterial Blood pH (Temp corrected) 7.541 H Arterial Blood pCO2 (Temp correct) 29.8 L Arterial Blood pO2 (Temp corrected) 104.1 H Arterial Blood HCO3 25.8 Arterial Blood Base Excess 2.5 Arterial Blood Oxygen Saturation 98.4 Sid Test ACCEPTAB Arterial Blood Gas Puncture Site Right Radial Arterial Blood Carboxyhemoglobin 0.3 Arterial Blood Methemoglobin 0.3 Blood Gas A-a O2 Differential 296.5 H Oxyhemoglobin Percent 97.8 Total Hemoglobin 11.7 L Blood Gas Temperature 33.0 Blood Gas Respiration Rate 20.0 Blood Gas Actual Respiration Rate 20 Blood Gas Modality VENT - AC FiO2 60.0 Blood Gas Tidal Volume 500.0 Blood Gas Low PEEP Setting 5.0 Blood Gas Notified Whom M.DJoanna Blood Gas Notified Time 02/08/2017 6:14:41 PM Test 02/08/17 18:06 02/08/17 19:03 02/08/17 20:06 02/08/17 20:59 Bedside Glucose 110 113 137 133 Test 02/08/17 21:05 02/08/17 22:08 02/08/17 23:16 02/09/17 00:00 Sodium Level 141 Potassium Level 4.0 Chloride Level 105 Carbon Dioxide Level 28 Anion Gap 12 Blood Urea Nitrogen 32 H Creatinine 1.42 H Glucose Level 141 Calcium Level 9.2 Magnesium Level 2.4 Creatine Kinase 195 Creatine Kinase Index 3.8 Creatinine Kinase MB (Mass) 7.47 H Troponin I 0.064 Bedside Glucose 162 146 Prothrombin Time 16.2 H Prothrombin Time Ratio 1.3 INR International Normalized Ratio 1.29 Activated Partial Thromboplast Time 36.2 H Test 02/09/17 00:15 02/09/17 00:25 02/09/17 01:02 02/09/17 02:09 Bedside Glucose 149 176 162 Sodium Level 140 Potassium Level 3.8 Chloride Level 104 Carbon Dioxide Level 28 Anion Gap 12 Blood Urea Nitrogen 32 H Creatinine 1.42 H Glucose Level 165 Calcium Level 9.1 Phosphorus Level 2.8 Magnesium Level 2.3 Total Bilirubin 0.2 Direct Bilirubin 0.00 Indirect Bilirubin 0.2 Aspartate Amino Transf (AST/SGOT) 68 H Alanine Aminotransferase (ALT/SGPT) 96 H Alkaline Phosphatase 76 Total Protein 6.3 Albumin 3.4 Globulin 2.90 Albumin/Globulin Ratio 1.17 Lipase 23 Test 02/09/17 03:04 02/09/17 04:02 02/09/17 05:00 02/09/17 05:06 Bedside Glucose 153 140 140 White Blood Count 28.4 #H Red Blood Count 3.74 L Hemoglobin 10.4 L Hematocrit 32.0 L Mean Corpuscular Volume 85.6 Mean Corpuscular Hemoglobin 27.8 L Mean Corpuscular Hemoglobin Concent 32.5 Red Cell Distribution Width 15.1 H Platelet Count 461 #H Mean Platelet Volume 9.7 Prothrombin Time 17.2 H Prothrombin Time Ratio 1.3 INR International Normalized Ratio 1.40 Activated Partial Thromboplast Time 42.8 H Sodium Level 141 Potassium Level 4.6 Chloride Level 105 Carbon Dioxide Level 27 Anion Gap 14 Blood Urea Nitrogen 33 H Creatinine 1.41 H Glucose Level 131 Calcium Level 9.3 Phosphorus Level 3.6 Magnesium Level 2.2 Amylase Level 48 Lipase 19 L Test 02/09/17 06:00 02/09/17 06:02 02/09/17 06:59 02/09/17 08:03 Blood Gas Specimen Source Blood arterial Arterial Blood Date Drawn 02/09/2017 5:45:53 AM Arterial Blood pH (Temp corrected) 7.458 H Arterial Blood pCO2 (Temp correct) 40.6 Arterial Blood pO2 (Temp corrected) 110.0 H Arterial Blood HCO3 28.6 H Arterial Blood Base Excess 3.7 H Arterial Blood Oxygen Saturation 98.0 Sid Test ACCEPTAB Arterial Blood Gas Puncture Site Right Radial Arterial Blood Carboxyhemoglobin 0.3 Arterial Blood Methemoglobin 0.6 Blood Gas A-a O2 Differential 203.4 H Oxyhemoglobin Percent 97.1 Total Hemoglobin 13.2 Blood Gas Temperature 35.0 Blood Gas Respiration Rate 20.0 Blood Gas Actual Respiration Rate 20 Blood Gas Modality VENT - AC FiO2 50.0 Blood Gas Tidal Volume 500.0 Blood Gas Low PEEP Setting 5.0 Blood Gas Notified Whom MA Blood Gas Notified Time 02/09/2017 6:00:33 AM Bedside Glucose 125 145 147 Medications Medications Current Medications Midazolam HCl 50 ml @ 1 mls/hr TITRATE IV Last administered on 02/09/17 06:13; Admin Dose 2 MLS/HR; Start 02/07/17 at 22:30 Fentanyl (Sublimaze) 100 ml @ 2.5 mls/hr TITRATE IV Last administered on 23:24; Admin Dose 2.5 MLS/HR; Start 02/07/17 at 22:30 Ondansetron HCl (Zofran Inj) 4 mg Q6H PRN IV NAUSEA AND/OR VOMITING; Start 02/07 at 22:30 Acetaminophen (Tylenol Liquid) 650 mg Q6H PRN PO PAIN LEVEL 1-3 OR FEVER; Start 02/07/17 at 22:30 Morphine Sulfate (morphine) 2 mg Q4H PRN IV PAIN LEVEL 7-10; Start 02/07/17 at 22:30 Lorazepam (Ativan) 1 mg Q2H PRN IV ANXIETY; Start 02/07/17 at 22:30 Famotidine (Pepcid Iv) 20 mg DAILY IV Last administered on 02/09/17 08:26; Admin Dose 20 MG; Start 02/08/17 at 09:00 Heparin Sodium (Porcine) (Heparin (5000 Units/0.5 ml)) 5,000 unit Q12 SC Last administered on 02/09/17 08:28; Admin Dose 5,000 UNIT; Start 02/08/17 at 09:00 Acetaminophen (Tylenol Supp) 650 mg Q4H PRN [place] TEMP > 37C; Start 02/07/17 at 22: 30 Acetaminophen (Tylenol Liquid) 650 mg Q4H PRN PO TEMP > 37C; Start 02/07/17 at 22:30 Acetaminophen (Tylenol Supp) 500 mg Q6H [place] ; Start 02/08/17 at 22:30 Acetaminophen 500 mg 500 mg Q6H PO Last administered on 02/09/17 05:10; Admin Dose 500 MG; Start 02/08/17 at 22:30 Cefepime HCl (Maxipime 1gm/50 ml (Pmx)) 50 ml @ 100 mls/hr Q12 IVPB Last administered on 02/09/17 08:26; Admin Dose 100 MLS/HR; Start 02/08/17 at 09:00 Meperidine HCl (Demerol) 12.5 mg Q4H PRN IV POST OPERATIVE SHIVERING; Start 02/08/17 at 02:00 Meperidine HCl (Demerol) 25 mg Q4H PRN IV POST OPERATIVE SHIVERING; Start at 02:00 Eye Lubricant (Akwa Oint) 1 applic Q6 BOTH EYES Last administered on 02/09/17 05:11; Admin Dose 1 APPLIC; Start 02/08/17 at 02:00 Eye Lubricant (Artificial Tears Oph) 2 drop Q6 BOTH EYES Last administered on 05:11; Admin Dose 2 DROP; Start 02/08/17 at 02:00 Diagnostic Test (Pha) (Accu-Chek) 1 ea Q1H XX Last administered on 02/09/17 08: 27; Admin Dose 1 EA; Start 02/08/17 at 02:00 Dextrose (D50w Syringe) 25 ml Q15M PRN IV Till BS 80 mg/dL or above x2; Start 02/08/17 at 02:00 Dextrose 50 ml 50 ml Q15M PRN IV Till BS 80 mg/dL or above x2; Start 02/08/17 at 02:00 Norepinephrine/ Dextrose (Levophed/D5W) 500 ml @ 1.87 mls/hr TITRATE IV ; Start 02/08/17 at 07:00 Hydralazine HCl 10 mg 10 mg Q4H PRN IV PRN SBP>170; Start 02/08/17 at 12:00 Potassium Chloride/Dextrose/ Sod Cl 1,000 ml @ 125 mls/hr Q8H IV Last administered on 02/09/17t 05:11; Admin Dose 125 MLS/HR; Start 02/08/17 at 12:30 Vancomycin HCl 1.25 gm/Sodium Chloride 250 ml @ 83.333 mls/ hr Q36H IVPB ; Start 02/09/17 at 16:00 Vecuronium [place]/Dextrose (Norcuron/D5W) 100 ml @ 4.32 mls/hr TITRATE IV ; Start 02/09/17 at 07:30 JARROD MALLORY Feb 09, 2017 09:07
--- NOTE | 2017-02-09 09:15 | RADRPT ---
PROCEDURE: XR Chest. CLINICAL INDICATION: resp failure TECHNIQUE: Single frontal view of the chest was obtained. COMPARISON: Chest x-ray from 02/07/2017 FINDINGS: There has been interval placement of an enteric tube with its tip in the stomach. The endotracheal tube is unchanged in position. Heart size is unchanged. There is stable prominence of interstitial markings, likely due to mild to moderate congestion on a background of chronic / senescent changes although underlying infiltrates cannot be entirely exclude d. There is a mild to moderate right pleural effusion which has increased. There is a new small left pleural effusion and retrocardiac opacity due to atelectasis, infiltrate, and / or effusion. IMPRESSION: Interval placement of an enteric tube with its tip in the stomach. Mild to moderate right pleural effusion which has increased as well as a new small left pleural effu sabrina and retrocardiac opacity due to atelectasis, infiltrate, and / or effusion. Stable likely mild to moderate congestion on a background of chronic / senescent changes although un derlying infiltrates cannot be excluded. RPTAT: EE Physician Joe Date Time Electronically viewed and signed by Francis Xiong Physician on 02/09/2017 09:15 /
--- NOTE | 2017-02-09 09:48 | PN ---
Date/Time of Note Date/Time of Note DATE: 02/09/17 TIME: 09:39 Assessment/Plan VTE Prophylaxis VTE Prophylaxis Intervention: SCD's Lines/Catheters IV Catheter Type (from [facility]): Central Line Central line still needed: Yes Urinary Cath still in place: Yes Reason Cath still needed: urinary retention Assessment/Plan Chief Complaint/Hosp Course ASSESSMENT AND PLAN: 76-year-old lady who left against medical advice earlier yesterday from [facility] who comes in with acute respiratory failure secondary to severe bilateral pneumonia, cardiac arrest, status post cardiopulmonary resuscitation, now on hypothermia protocol. 1. Cardiac arrest - status post return of spontaneous circulation, s/p hypothermia protocol. Patient is intubated. In rewarming phase now. - f/u EEG, and neurology consult, pulmonary consult because of respiratory failure. - Continue broad spectrum antibiotics as well. - consider anti-sz meds - insulin drip IV 2. Respiratory distress. Again, she has bilateral pneumonia. She has cardiac arrest, intubated - again, follow pulmonary recommendations. - Continue mechanical ventilation, broad spectrum antibiotics. - Follow up final culture results. - Tylenol p.r.n. for pain and fevers 3. History of type 2 diabetes, hyperglycemia - A1c - 7.8 - Consider insulin drip as well. 4. History of chronic obstructive pulmonary disease, see #2. 5. History of atrial flutter and supraventricular tachycardia. - monitor HR, f/u cardiology consult rec's 6. Sepsis - again secondary to what looks like healthcare-associated pneumonia. - See #1 and #2 as far as broad spectrum antibiotics, IV fluids. 7. History of hypertension. Again, monitor for now. 8. Gastrointestinal prophylaxis. H2 sonja. 9. Deep venous thrombosis prophylaxis - sequential compression devices. Critical care time spent today = 40 min. Problems: Subjective 24 Hr Interval Summary Free Text/Dictation Pt still intubated, on rewarming phase now. Seen by CV, Neuro, pulm team. Exam/Review of Systems Vital Signs Vitals Vital Signs Date Time Temp Pulse Resp B/P Pulse Ox O2 Delivery O2 Flow Rate FiO2 02/09/17 08:58 93 02/09/17 07:30 20 120/57 100 02/09/17 07:30 50 02/09/17 07:15 94.9 02/08/17 21:00 Mechanical Ventilator Intake and Output 02/08/17 02/08/17 02/09/17 15:00 23:00 07:00 Intake Total 942 ml 1183 ml 1035 ml Output Total 1456 ml 962 ml 317 ml Balance -514 ml 221 ml 718 ml Exam GENERAL: The patient lying in bed, intubated and sedated. HEENT: Unable to fully assess. NECK: Supple, no thyromegaly. LUNGS: Distant breath sounds bilaterally. CARDIOVASCULAR: S1, S2 heard. No rubs or gallops. ABDOMEN: Soft, nontender, nondistended. Normal bowel sounds. MUSCULOSKELETAL: No lower extremity edema bilaterally. NEUROLOGIC: Unable to fully assess as the patient is intubated and sedated. Results Result Diagram: 02/09/17 0500 02/09/17 0500 Results 24 hrs Laboratory Tests Test 02/08/17 10:04 02/08/17 10:55 02/08/17 12:00 02/08/17 12:24 Bedside Glucose 137 102 82 77 Test 02/08/17 12:54 02/08/17 13:56 02/08/17 14:55 02/08/17 15:01 Bedside Glucose 99 114 154 Sodium Level 143 Potassium Level 3.4 L Chloride Level 105 Carbon Dioxide Level 30 Anion Gap 11 Blood Urea Nitrogen 33 H Creatinine 1.54 H Glucose Level 163 # Hemoglobin A1c 7.8 H Calcium Level 8.9 Phosphorus Level 2.3 L Magnesium Level 2.8 #H Total Bilirubin 0.2 Direct Bilirubin 0.00 Indirect Bilirubin 0.2 Aspartate Amino Transf (AST/SGOT) 73 H Alanine Aminotransferase (ALT/SGPT) 106 H Alkaline Phosphatase 83 Creatine Kinase 229 H Creatine Kinase Index 3.5 Creatinine Kinase MB (Mass) 8.01 H Troponin I 0.071 Total Protein 6.5 Albumin 3.7 Globulin 2.80 Albumin/Globulin Ratio 1.32 Triglycerides Level 115 Cholesterol Level 130 LDL Cholesterol, Calculated 54 HDL Cholesterol 53 Cholesterol/HDL Ratio 2.4 Amylase Level 64 Lipase 39 Test 02/08/17 16:09 02/08/17 17:22 02/08/17 18:00 02/08/17 18:06 Bedside Glucose 156 129 110 Blood Gas Specimen Source Blood arterial Arterial Blood Date Drawn 02/08/2017 6:06:50 PM Arterial Blood pH (Temp corrected) 7.541 H Arterial Blood pCO2 (Temp correct) 29.8 L Arterial Blood pO2 (Temp corrected) 104.1 H Arterial Blood HCO3 25.8 Arterial Blood Base Excess 2.5 Arterial Blood Oxygen Saturation 98.4 Sid Test ACCEPTAB Arterial Blood Gas Puncture Site Right Radial Arterial Blood Carboxyhemoglobin 0.3 Arterial Blood Methemoglobin 0.3 Blood Gas A-a O2 Differential 296.5 H Oxyhemoglobin Percent 97.8 Total Hemoglobin 11.7 L Blood Gas Temperature 33.0 Blood Gas Respiration Rate 20.0 Blood Gas Actual Respiration Rate 20 Blood Gas Modality VENT - AC FiO2 60.0 Blood Gas Tidal Volume 500.0 Blood Gas Low PEEP Setting 5.0 Blood Gas Notified Whom M.D. Blood Gas Notified Time 02/08/2017 6:14:41 PM Test 02/08/17 19:03 02/08/17 20:06 02/08/17 20:59 02/08/17 21:05 Bedside Glucose 113 137 133 Sodium Level 141 Potassium Level 4.0 Chloride Level 105 Carbon Dioxide Level 28 Anion Gap 12 Blood Urea Nitrogen 32 H Creatinine 1.42 H Glucose Level 141 Calcium Level 9.2 Magnesium Level 2.4 Creatine Kinase 195 Creatine Kinase Index 3.8 Creatinine Kinase MB (Mass) 7.47 H Troponin I 0.064 Test 02/08/17 22:08 02/08/17 23:16 02/09/17 00:00 02/09/17 00:15 Bedside Glucose 162 146 149 Prothrombin Time 16.2 H Prothrombin Time Ratio 1.3 INR International Normalized Ratio 1.29 Activated Partial Thromboplast Time 36.2 H Test 02/09/17 00:25 02/09/17 01:02 02/09/17 02:09 02/09/17 03:04 Sodium Level 140 Potassium Level 3.8 Chloride Level 104 Carbon Dioxide Level 28 Anion Gap 12 Blood Urea Nitrogen 32 H Creatinine 1.42 H Glucose Level 165 Calcium Level 9.1 Phosphorus Level 2.8 Magnesium Level 2.3 Total Bilirubin 0.2 Direct Bilirubin 0.00 Indirect Bilirubin 0.2 Aspartate Amino Transf (AST/SGOT) 68 H Alanine Aminotransferase (ALT/SGPT) 96 H Alkaline Phosphatase 76 Total Protein 6.3 Albumin 3.4 Globulin 2.90 Albumin/Globulin Ratio 1.17 Lipase 23 Bedside Glucose 176 162 153 Test 02/09/17 04:02 02/09/17 05:00 02/09/17 05:06 02/09/17 06:00 Bedside Glucose 140 140 White Blood Count 28.4 #H Red Blood Count 3.74 L Hemoglobin 10.4 L Hematocrit 32.0 L Mean Corpuscular Volume 85.6 Mean Corpuscular Hemoglobin 27.8 L Mean Corpuscular Hemoglobin Concent 32.5 Red Cell Distribution Width 15.1 H Platelet Count 461 #H Mean Platelet Volume 9.7 Prothrombin Time 17.2 H Prothrombin Time Ratio 1.3 INR International Normalized Ratio 1.40 Activated Partial Thromboplast Time 42.8 H Sodium Level 141 Potassium Level 4.6 Chloride Level 105 Carbon Dioxide Level 27 Anion Gap 14 Blood Urea Nitrogen 33 H Creatinine 1.41 H Glucose Level 131 Calcium Level 9.3 Phosphorus Level 3.6 Magnesium Level 2.2 Amylase Level 48 Lipase 19 L Blood Gas Specimen Source Blood arterial Arterial Blood Date Drawn 02/09/2017 5:45:53 AM Arterial Blood pH (Temp corrected) 7.458 H Arterial Blood pCO2 (Temp correct) 40.6 Arterial Blood pO2 (Temp corrected) 110.0 H Arterial Blood HCO3 28.6 H Arterial Blood Base Excess 3.7 H Arterial Blood Oxygen Saturation 98.0 Sid Test ACCEPTAB Arterial Blood Gas Puncture Site Right Radial Arterial Blood Carboxyhemoglobin 0.3 Arterial Blood Methemoglobin 0.6 Blood Gas A-a O2 Differential 203.4 H Oxyhemoglobin Percent 97.1 Total Hemoglobin 13.2 Blood Gas Temperature 35.0 Blood Gas Respiration Rate 20.0 Blood Gas Actual Respiration Rate 20 Blood Gas Modality VENT - AC FiO2 50.0 Blood Gas Tidal Volume 500.0 Blood Gas Low PEEP Setting 5.0 Blood Gas Notified Whom MA Blood Gas Notified Time 02/09/2017 6:00:33 AM Test 02/09/17 06:02 02/09/17 06:59 02/09/17 08:03 Bedside Glucose 125 145 147 Medications Medications Current Medications Midazolam HCl 50 ml @ 1 mls/hr TITRATE IV Last administered on 02/09/17 06:13; Admin Dose 2 MLS/HR; Start 02/07/17 at 22:30 Fentanyl (Sublimaze) 100 ml @ 2.5 mls/hr TITRATE IV Last administered on 23:24; Admin Dose 2.5 MLS/HR; Start 02/07/17 at 22:30 Ondansetron HCl (Zofran Inj) 4 mg Q6H PRN IV NAUSEA AND/OR VOMITING; Start 02/07 at 22:30 Acetaminophen (Tylenol Liquid) 650 mg Q6H PRN PO PAIN LEVEL 1-3 OR FEVER; Start 02/07/17 at 22:30 Morphine Sulfate (morphine) 2 mg Q4H PRN IV PAIN LEVEL 7-10; Start 02/07/17 at 22:30 Lorazepam (Ativan) 1 mg Q2H PRN IV ANXIETY; Start 02/07/17 at 22:30 Famotidine (Pepcid Iv) 20 mg DAILY IV Last administered on 02/09/17 08:26; Admin Dose 20 MG; Start 02/08/17 at 09:00 Heparin Sodium (Porcine) (Heparin (5000 Units/0.5 ml)) 5,000 unit Q12 SC Last administered on 02/09/17 08:28; Admin Dose 5,000 UNIT; Start 02/08/17 at 09:00 Acetaminophen (Tylenol Supp) 650 mg Q4H PRN [place] TEMP > 37C; Start 02/07/17 at 22: 30 Acetaminophen (Tylenol Liquid) 650 mg Q4H PRN PO TEMP > 37C; Start 02/07/17 at 22:30 Acetaminophen (Tylenol Supp) 500 mg Q6H [place] ; Start 02/08/17 at 22:30 Acetaminophen 500 mg 500 mg Q6H PO Last administered on 02/09/17 05:10; Admin Dose 500 MG; Start 02/08/17 at 22:30 Cefepime HCl (Maxipime 1gm/50 ml (Pmx)) 50 ml @ 100 mls/hr Q12 IVPB Last administered on 02/09/17 08:26; Admin Dose 100 MLS/HR; Start 02/08/17 at 09:00 Meperidine HCl (Demerol) 12.5 mg Q4H PRN IV POST OPERATIVE SHIVERING; Start 02/08/17 at 02:00 Meperidine HCl (Demerol) 25 mg Q4H PRN IV POST OPERATIVE SHIVERING; Start at 02:00 Eye Lubricant (Akwa Oint) 1 applic Q6 BOTH EYES Last administered on 02/09/17 05:11; Admin Dose 1 APPLIC; Start 02/08/17 at 02:00 Eye Lubricant (Artificial Tears Oph) 2 drop Q6 BOTH EYES Last administered on 05:11; Admin Dose 2 DROP; Start 02/08/17 at 02:00 Diagnostic Test (Pha) (Accu-Chek) 1 ea Q1H XX Last administered on 02/09/17 09: 31; Admin Dose 1 EA; Start 02/08/17 at 02:00 Dextrose (D50w Syringe) 25 ml Q15M PRN IV Till BS 80 mg/dL or above x2; Start 02/08/17 at 02:00 Dextrose 50 ml 50 ml Q15M PRN IV Till BS 80 mg/dL or above x2; Start 02/08/17 at 02:00 Norepinephrine/ Dextrose (Levophed/D5W) 500 ml @ 1.87 mls/hr TITRATE IV ; Start 02/08/17 at 07:00 Hydralazine HCl 10 mg 10 mg Q4H PRN IV PRN SBP>170; Start 02/08/17 at 12:00 Potassium Chloride/Dextrose/ Sod Cl 1,000 ml @ 125 mls/hr Q8H IV Last administered on 02/09/17 05:11; Admin Dose 125 MLS/HR; Start 02/08/17 at 12:30 Vancomycin HCl 1.25 gm/Sodium Chloride 250 ml @ 83.333 mls/ hr Q36H IVPB ; Start 02/09/17 at 16:00 Vecuronium [place]/Dextrose (Norcuron/D5W) 100 ml @ 4.32 mls/hr TITRATE IV ; Start 02/09/17 at 07:30 Procedures Procedures Conclusions 1. Normal left ventricular systolic function. Normal left ventricular cavity size. Moderate concentric left ventricular hypertrophy. Ejection fraction is visually estimated at 55-60 %. Tissue Doppler/Mitral Doppler indices are consistent with impaired relaxation (Stage I diastolic dysfunction). 2. There is mild enlargement of left atrium. 3. Mild mitral leaflet calcification. Moderate mitral annular calcification. Trace mitral regurgitation. 4. Normal appearance and function of the tricuspid valve with trace physiologic regurgitation. Normal right ventricular systolic pressure. Estimated peak PA systolic pressure 33 mmHg. 5. Normal pulmonic valve appearance. There is trace pulmonic regurgitation. MIGUEL ANGEL MORGAN Feb 09, 2017 09:48
[2017-02-09 09:51] LABS: LYMPHOCYTES # 0.6 10^3/ul (0.8-2.9); MONOCYTE # 0.6 10^3/ul (0.3-0.9); NEUTROPHIL # 21.6 10^3/ul (1.6-7.5)
--- NOTE | 2017-02-09 10:05 | RADRPT ---
PROCEDURE: XR Chest. CLINICAL INDICATION: pneumonia TECHNIQUE: Single frontal view of the chest was obtained. COMPARISON: Chest x-ray from 02/09/2017 06:13 hours FINDINGS: The endotracheal tube and enteric tube are unchanged in position. Heart size is unchanged. The aortic arch is calcified. There are largely stable small bilateral pleural effusions and retrocardiac opacity due to atelectas is, infiltrate, and / or effusion. IMPRESSION: No significant interval change. RPTAT: EE Physician Joe Date Time Electronically viewed and signed by Francis Xiong Physician on 02/09/2017 10:05 /
--- NOTE | 2017-02-09 10:57 | CONS ---
Date/Time of Note Date/Time of Note DATE: 02/09/17 TIME: 10:52 Assessment/Plan Assessment/Plan Chief Complaint/Hosp Course IMPRESSION: 1. Status post cardiopulmonary arrest. 2. Abnormal electrocardiogram-negative troponin x 3 3. Hypertension. 4. Respiratory failure. 5. History of atrial fibrillation, atrial flutter. 6. Possible congestive heart failure, pneumonia by chest x-ray. 7. Encephalopathy. 8. Renal failure. 9. Hypernatremia-improved 10. Anemia. 11. Leukocytosis. 12. Urinary tract infection. Recc: -Tele -rewarming -start BB -continue abx's and f/u cx data -Follow MS closely Problems: Consultation Date/Type/Reason Admit Date/Time Feb 07, 2017 at 22:31 Initial Consult Date 02/08/17 Type of Consultation: Cardiology Reason for Consultation Cardiopulmonary arrest Referring Provider: MIGUEL ANGEL MORGAN Exam/Review of Systems Vital Signs Vitals Vital Signs Date Time Temp Pulse Resp B/P Pulse Ox O2 Delivery O2 Flow Rate FiO2 02/09/17 10:30 103 19 129/59 100 02/09/17 10:00 95.6 Mechanical Ventilator 02/09/17 07:30 50 Intake and Output 02/08/17 02/08/17 02/09/17 15:00 23:00 07:00 Intake Total 942 ml 1183 ml 1035 ml Output Total 1456 ml 962 ml 317 ml Balance -514 ml 221 ml 718 ml Exam Review of Systems: CONSTITUTIONAL: No fevers, chills. PULMONARY: intubated CARDIOVASCULAR: No chest pain/palpitations GASTROINTESTINAL: No nausea/vomiting. GENITOURINARY: No hematuria/dysuria. MUSCULOSKELETAL: No myagias/arthalgias. PSYCHIATRIC: The patient denies depression. NEUROLOGIC: sedated Constitutional: alert Psych: no complaints Head: normocephalic ENMT: mucosa pink and moist Neck: jvd (9 cm water), supple Respiratory: diminished breath sounds Cardiovascular: regular rate and rhythm Gastrointestinal: non-tender, soft Musculoskeletal: muscle tone (normal) Extremities: edema (none) Neurological: other (No focal deficits) Results Result Diagram: 02/09/17 0500 02/09/17 0500 Results 24 hrs Laboratory Tests Test 02/08/17 10:55 02/08/17 12:00 02/08/17 12:24 02/08/17 12:54 Bedside Glucose 102 82 77 99 Test 02/08/17 13:56 02/08/17 14:55 02/08/17 15:01 02/08/17 16:09 Bedside Glucose 114 154 156 Sodium Level 143 Potassium Level 3.4 L Chloride Level 105 Carbon Dioxide Level 30 Anion Gap 11 Blood Urea Nitrogen 33 H Creatinine 1.54 H Glucose Level 163 # Hemoglobin A1c 7.8 H Calcium Level 8.9 Phosphorus Level 2.3 L Magnesium Level 2.8 #H Total Bilirubin 0.2 Direct Bilirubin 0.00 Indirect Bilirubin 0.2 Aspartate Amino Transf (AST/SGOT) 73 H Alanine Aminotransferase (ALT/SGPT) 106 H Alkaline Phosphatase 83 Creatine Kinase 229 H Creatine Kinase Index 3.5 Creatinine Kinase MB (Mass) 8.01 H Troponin I 0.071 Total Protein 6.5 Albumin 3.7 Globulin 2.80 Albumin/Globulin Ratio 1.32 Triglycerides Level 115 Cholesterol Level 130 LDL Cholesterol, Calculated 54 HDL Cholesterol 53 Cholesterol/HDL Ratio 2.4 Amylase Level 64 Lipase 39 Test 02/08/17 17:22 02/08/17 18:00 02/08/17 18:06 02/08/17 19:03 Bedside Glucose 129 110 113 Blood Gas Specimen Source Blood arterial Arterial Blood Date Drawn 02/08/2017 6:06:50 PM Arterial Blood pH (Temp corrected) 7.541 H Arterial Blood pCO2 (Temp correct) 29.8 L Arterial Blood pO2 (Temp corrected) 104.1 H Arterial Blood HCO3 25.8 Arterial Blood Base Excess 2.5 Arterial Blood Oxygen Saturation 98.4 Sid Test ACCEPTAB Arterial Blood Gas Puncture Site Right Radial Arterial Blood Carboxyhemoglobin 0.3 Arterial Blood Methemoglobin 0.3 Blood Gas A-a O2 Differential 296.5 H Oxyhemoglobin Percent 97.8 Total Hemoglobin 11.7 L Blood Gas Temperature 33.0 Blood Gas Respiration Rate 20.0 Blood Gas Actual Respiration Rate 20 Blood Gas Modality VENT - AC FiO2 60.0 Blood Gas Tidal Volume 500.0 Blood Gas Low PEEP Setting 5.0 Blood Gas Notified Whom M.D. Blood Gas Notified Time 02/08/2017 6:14:41 PM Test 02/08/17 20:06 02/08/17 20:59 02/08/17 21:05 02/08/17 22:08 Bedside Glucose 137 133 162 Sodium Level 141 Potassium Level 4.0 Chloride Level 105 Carbon Dioxide Level 28 Anion Gap 12 Blood Urea Nitrogen 32 H Creatinine 1.42 H Glucose Level 141 Calcium Level 9.2 Magnesium Level 2.4 Creatine Kinase 195 Creatine Kinase Index 3.8 Creatinine Kinase MB (Mass) 7.47 H Troponin I 0.064 Test 02/08/17 23:16 02/09/17 00:00 02/09/17 00:15 02/09/17 00:25 Bedside Glucose 146 149 Prothrombin Time 16.2 H Prothrombin Time Ratio 1.3 INR International Normalized Ratio 1.29 Activated Partial Thromboplast Time 36.2 H Sodium Level 140 Potassium Level 3.8 Chloride Level 104 Carbon Dioxide Level 28 Anion Gap 12 Blood Urea Nitrogen 32 H Creatinine 1.42 H Glucose Level 165 Calcium Level 9.1 Phosphorus Level 2.8 Magnesium Level 2.3 Total Bilirubin 0.2 Direct Bilirubin 0.00 Indirect Bilirubin 0.2 Aspartate Amino Transf (AST/SGOT) 68 H Alanine Aminotransferase (ALT/SGPT) 96 H Alkaline Phosphatase 76 Total Protein 6.3 Albumin 3.4 Globulin 2.90 Albumin/Globulin Ratio 1.17 Lipase 23 Test 02/09/17 01:02 02/09/17 02:09 02/09/17 03:04 02/09/17 04:02 Bedside Glucose 176 162 153 140 Test 02/09/17 05:00 02/09/17 05:06 02/09/17 06:00 02/09/17 06:02 White Blood Count 28.4 #H Red Blood Count 3.74 L Hemoglobin 10.4 L Hematocrit 32.0 L Mean Corpuscular Volume 85.6 Mean Corpuscular Hemoglobin 27.8 L Mean Corpuscular Hemoglobin Concent 32.5 Red Cell Distribution Width 15.1 H Platelet Count 461 #H Mean Platelet Volume 9.7 Neutrophils % 76.0 Band Neutrophils % 20.0 H Lymphocytes % 2.0 L Monocytes % 2.0 Neutrophils # 21.6 H Lymphocytes # 0.6 L Monocytes # 0.6 Prothrombin Time 17.2 H Prothrombin Time Ratio 1.3 INR International Normalized Ratio 1.40 Activated Partial Thromboplast Time 42.8 H Sodium Level 141 Potassium Level 4.6 Chloride Level 105 Carbon Dioxide Level 27 Anion Gap 14 Blood Urea Nitrogen 33 H Creatinine 1.41 H Glucose Level 131 Calcium Level 9.3 Phosphorus Level 3.6 Magnesium Level 2.2 Amylase Level 48 Lipase 19 L Bedside Glucose 140 125 Blood Gas Specimen Source Blood arterial Arterial Blood Date Drawn 02/09/2017 5:45:53 AM Arterial Blood pH (Temp corrected) 7.458 H Arterial Blood pCO2 (Temp correct) 40.6 Arterial Blood pO2 (Temp corrected) 110.0 H Arterial Blood HCO3 28.6 H Arterial Blood Base Excess 3.7 H Arterial Blood Oxygen Saturation 98.0 Sid Test ACCEPTAB Arterial Blood Gas Puncture Site Right Radial Arterial Blood Carboxyhemoglobin 0.3 Arterial Blood Methemoglobin 0.6 Blood Gas A-a O2 Differential 203.4 H Oxyhemoglobin Percent 97.1 Total Hemoglobin 13.2 Blood Gas Temperature 35.0 Blood Gas Respiration Rate 20.0 Blood Gas Actual Respiration Rate 20 Blood Gas Modality VENT - AC FiO2 50.0 Blood Gas Tidal Volume 500.0 Blood Gas Low PEEP Setting 5.0 Blood Gas Notified Whom MA Blood Gas Notified Time 02/09/2017 6:00:33 AM Test 02/09/17 06:59 02/09/17 08:03 02/09/17 09:24 02/09/17 10:02 Bedside Glucose 145 147 137 138 Medications Medications Current Medications Midazolam HCl 50 ml @ 1 mls/hr TITRATE IV Last administered on 02/09/17 06:13; Admin Dose 2 MLS/HR; Start 02/07/17 at 22:30 Fentanyl (Sublimaze) 100 ml @ 2.5 mls/hr TITRATE IV Last administered on 23:24; Admin Dose 2.5 MLS/HR; Start 02/07/17 at 22:30 Ondansetron HCl (Zofran Inj) 4 mg Q6H PRN IV NAUSEA AND/OR VOMITING; Start 02/07 at 22:30 Acetaminophen (Tylenol Liquid) 650 mg Q6H PRN PO PAIN LEVEL 1-3 OR FEVER; Start 02/07/17 at 22:30 Morphine Sulfate (morphine) 2 mg Q4H PRN IV PAIN LEVEL 7-10; Start 02/07/17 at 22:30 Lorazepam (Ativan) 1 mg Q2H PRN IV ANXIETY; Start 02/07/17 at 22:30 Famotidine (Pepcid Iv) 20 mg DAILY IV Last administered on 02/09/17 08:26; Admin Dose 20 MG; Start 02/08/17 at 09:00 Heparin Sodium (Porcine) (Heparin (5000 Units/0.5 ml)) 5,000 unit Q12 SC Last administered on 02/09/17 08:28; Admin Dose 5,000 UNIT; Start 02/08/17 at 09:00 Acetaminophen (Tylenol Supp) 650 mg Q4H PRN [place] TEMP > 37C; Start 02/07/17 at 22: 30 Acetaminophen (Tylenol Liquid) 650 mg Q4H PRN PO TEMP > 37C; Start 02/07/17 at 22:30 Acetaminophen (Tylenol Supp) 500 mg Q6H [place] ; Start 02/08/17 at 22:30 Acetaminophen 500 mg 500 mg Q6H PO Last administered on 02/09/17 10:36; Admin Dose 500 MG; Start 02/08/17 at 22:30 Cefepime HCl (Maxipime 1gm/50 ml (Pmx)) 50 ml @ 100 mls/hr Q12 IVPB Last administered on 02/09/17 08:26; Admin Dose 100 MLS/HR; Start 02/08/17 at 09:00 Meperidine HCl (Demerol) 12.5 mg Q4H PRN IV POST OPERATIVE SHIVERING; Start 02/08/17 at 02:00 Meperidine HCl (Demerol) 25 mg Q4H PRN IV POST OPERATIVE SHIVERING; Start at 02:00 Eye Lubricant (Akwa Oint) 1 applic Q6 BOTH EYES Last administered on 02/09/17 05:11; Admin Dose 1 APPLIC; Start 02/08/17 at 02:00 Eye Lubricant (Artificial Tears Oph) 2 drop Q6 BOTH EYES Last administered on 05:11; Admin Dose 2 DROP; Start 02/08/17 at 02:00 Diagnostic Test (Pha) (Accu-Chek) 1 ea Q1H XX Last administered on 02/09/17 10: 03; Admin Dose 1 EA; Start 02/08/17 at 02:00 Dextrose (D50w Syringe) 25 ml Q15M PRN IV Till BS 80 mg/dL or above x2; Start 02/08/17 at 02:00 Dextrose 50 ml 50 ml Q15M PRN IV Till BS 80 mg/dL or above x2; Start 02/08/17 at 02:00 Norepinephrine/ Dextrose (Levophed/D5W) 500 ml @ 1.87 mls/hr TITRATE IV ; Start 02/08/17 at 07:00 Hydralazine HCl 10 mg 10 mg Q4H PRN IV PRN SBP>170; Start 02/08/17 at 12:00 Potassium Chloride/Dextrose/ Sod Cl 1,000 ml @ 125 mls/hr Q8H IV Last administered on 02/09/17 05:11; Admin Dose 125 MLS/HR; Start 02/08/17 at 12:30 Vancomycin HCl 1.25 gm/Sodium Chloride 250 ml @ 83.333 mls/ hr Q36H IVPB ; Start 02/09/17 at 16:00 Vecuronium [place]/Dextrose (Norcuron/D5W) 100 ml @ 4.32 mls/hr TITRATE IV Last administered on 02/09/17 10:06; Admin Dose 4.32 MLS/HR; Start 02/09/17 at 07 :30 LIONEL NEGRON Feb 09, 2017 10:57
--- NOTE | 2017-02-09 11:41 | CONS ---
Date/Time of Note Date/Time of Note DATE: 02/09/17 TIME: 11:40 Consult Date/Type/Reason Admit Date/Time Feb 07, 2017 at 22:31 Initial Consult Date 02/08/17 Type of Consultation: Neurology Reason for Consultation cardiac arrest Ordering Provider: MIGUEL ANGEL MORGAN Subjective remains unresponsive currently being rewarmed Objective Vital Signs Date Time Temp Pulse Resp B/P Pulse Ox O2 Delivery O2 Flow Rate FiO2 02/09/17 11:15 108 20 135/55 100 02/09/17 11:00 95.9 Mechanical Ventilator 02/09/17 07:30 50 Intake and Output 02/08/17 02/08/17 02/09/17 15:00 23:00 07:00 Intake Total 942 ml 1183 ml 1035 ml Output Total 1456 ml 962 ml 317 ml Balance -514 ml 221 ml 718 ml Exam on low dose sedation unarousable absent response to verbal stimuli sternal rub CN: constricted pupils non reactive absent corneal absent gag reflex absent OCM Motor no response to noxious Results/Medications Result Diagram: 02/09/17 0500 02/09/17 0500 Results 24 hrs Laboratory Tests Test 02/08/17 12:00 02/08/17 12:24 02/08/17 12:54 02/08/17 13:56 Bedside Glucose 82 77 99 114 Test 02/08/17 14:55 02/08/17 15:01 02/08/17 16:09 02/08/17 17:22 Bedside Glucose 154 156 129 Sodium Level 143 Potassium Level 3.4 L Chloride Level 105 Carbon Dioxide Level 30 Anion Gap 11 Blood Urea Nitrogen 33 H Creatinine 1.54 H Glucose Level 163 # Hemoglobin A1c 7.8 H Calcium Level 8.9 Phosphorus Level 2.3 L Magnesium Level 2.8 #H Total Bilirubin 0.2 Direct Bilirubin 0.00 Indirect Bilirubin 0.2 Aspartate Amino Transf (AST/SGOT) 73 H Alanine Aminotransferase (ALT/SGPT) 106 H Alkaline Phosphatase 83 Creatine Kinase 229 H Creatine Kinase Index 3.5 Creatinine Kinase MB (Mass) 8.01 H Troponin I 0.071 Total Protein 6.5 Albumin 3.7 Globulin 2.80 Albumin/Globulin Ratio 1.32 Triglycerides Level 115 Cholesterol Level 130 LDL Cholesterol, Calculated 54 HDL Cholesterol 53 Cholesterol/HDL Ratio 2.4 Amylase Level 64 Lipase 39 Test 02/08/17 18:00 02/08/17 18:06 02/08/17 19:03 02/08/17 20:06 Blood Gas Specimen Source Blood arterial Arterial Blood Date Drawn 02/08/2017 6:06:50 PM Arterial Blood pH (Temp corrected) 7.541 H Arterial Blood pCO2 (Temp correct) 29.8 L Arterial Blood pO2 (Temp corrected) 104.1 H Arterial Blood HCO3 25.8 Arterial Blood Base Excess 2.5 Arterial Blood Oxygen Saturation 98.4 Sid Test ACCEPTAB Arterial Blood Gas Puncture Site Right Radial Arterial Blood Carboxyhemoglobin 0.3 Arterial Blood Methemoglobin 0.3 Blood Gas A-a O2 Differential 296.5 H Oxyhemoglobin Percent 97.8 Total Hemoglobin 11.7 L Blood Gas Temperature 33.0 Blood Gas Respiration Rate 20.0 Blood Gas Actual Respiration Rate 20 Blood Gas Modality VENT - AC FiO2 60.0 Blood Gas Tidal Volume 500.0 Blood Gas Low PEEP Setting 5.0 Blood Gas Notified Whom M.D. Blood Gas Notified Time 02/08/2017 6:14:41 PM Bedside Glucose 110 113 137 Test 02/08/17 20:59 02/08/17 21:05 02/08/17 22:08 02/08/17 23:16 Bedside Glucose 133 162 146 Sodium Level 141 Potassium Level 4.0 Chloride Level 105 Carbon Dioxide Level 28 Anion Gap 12 Blood Urea Nitrogen 32 H Creatinine 1.42 H Glucose Level 141 Calcium Level 9.2 Magnesium Level 2.4 Creatine Kinase 195 Creatine Kinase Index 3.8 Creatinine Kinase MB (Mass) 7.47 H Troponin I 0.064 Test 02/09/17 00:00 02/09/17 00:15 02/09/17 00:25 02/09/17 01:02 Prothrombin Time 16.2 H Prothrombin Time Ratio 1.3 INR International Normalized Ratio 1.29 Activated Partial Thromboplast Time 36.2 H Bedside Glucose 149 176 Sodium Level 140 Potassium Level 3.8 Chloride Level 104 Carbon Dioxide Level 28 Anion Gap 12 Blood Urea Nitrogen 32 H Creatinine 1.42 H Glucose Level 165 Calcium Level 9.1 Phosphorus Level 2.8 Magnesium Level 2.3 Total Bilirubin 0.2 Direct Bilirubin 0.00 Indirect Bilirubin 0.2 Aspartate Amino Transf (AST/SGOT) 68 H Alanine Aminotransferase (ALT/SGPT) 96 H Alkaline Phosphatase 76 Total Protein 6.3 Albumin 3.4 Globulin 2.90 Albumin/Globulin Ratio 1.17 Lipase 23 Test 02/09/17 02:09 02/09/17 03:04 02/09/17 04:02 02/09/17 05:00 Bedside Glucose 162 153 140 White Blood Count 28.4 #H Red Blood Count 3.74 L Hemoglobin 10.4 L Hematocrit 32.0 L Mean Corpuscular Volume 85.6 Mean Corpuscular Hemoglobin 27.8 L Mean Corpuscular Hemoglobin Concent 32.5 Red Cell Distribution Width 15.1 H Platelet Count 461 #H Mean Platelet Volume 9.7 Neutrophils % 76.0 Band Neutrophils % 20.0 H Lymphocytes % 2.0 L Monocytes % 2.0 Neutrophils # 21.6 H Lymphocytes # 0.6 L Monocytes # 0.6 Prothrombin Time 17.2 H Prothrombin Time Ratio 1.3 INR International Normalized Ratio 1.40 Activated Partial Thromboplast Time 42.8 H Sodium Level 141 Potassium Level 4.6 Chloride Level 105 Carbon Dioxide Level 27 Anion Gap 14 Blood Urea Nitrogen 33 H Creatinine 1.41 H Glucose Level 131 Calcium Level 9.3 Phosphorus Level 3.6 Magnesium Level 2.2 Amylase Level 48 Lipase 19 L Test 02/09/17 05:06 02/09/17 06:00 02/09/17 06:02 02/09/17 06:59 Bedside Glucose 140 125 145 Blood Gas Specimen Source Blood arterial Arterial Blood Date Drawn 02/09/2017 5:45:53 AM Arterial Blood pH (Temp corrected) 7.458 H Arterial Blood pCO2 (Temp correct) 40.6 Arterial Blood pO2 (Temp corrected) 110.0 H Arterial Blood HCO3 28.6 H Arterial Blood Base Excess 3.7 H Arterial Blood Oxygen Saturation 98.0 Sid Test ACCEPTAB Arterial Blood Gas Puncture Site Right Radial Arterial Blood Carboxyhemoglobin 0.3 Arterial Blood Methemoglobin 0.6 Blood Gas A-a O2 Differential 203.4 H Oxyhemoglobin Percent 97.1 Total Hemoglobin 13.2 Blood Gas Temperature 35.0 Blood Gas Respiration Rate 20.0 Blood Gas Actual Respiration Rate 20 Blood Gas Modality VENT - AC FiO2 50.0 Blood Gas Tidal Volume 500.0 Blood Gas Low PEEP Setting 5.0 Blood Gas Notified Whom MA Blood Gas Notified Time 02/09/2017 6:00:33 AM Test 02/09/17 08:03 02/09/17 09:24 02/09/17 10:02 02/09/17 11:03 Bedside Glucose 147 137 138 142 Medications Current Medications Midazolam HCl 50 ml @ 1 mls/hr TITRATE IV Last administered on 02/09/17 06:13; Admin Dose 2 MLS/HR; Start 02/07/17 at 22:30 Fentanyl (Sublimaze) 100 ml @ 2.5 mls/hr TITRATE IV Last administered on 23:24; Admin Dose 2.5 MLS/HR; Start 02/07/17 at 22:30 Ondansetron HCl (Zofran Inj) 4 mg Q6H PRN IV NAUSEA AND/OR VOMITING; Start 02/07 at 22:30 Acetaminophen (Tylenol Liquid) 650 mg Q6H PRN PO PAIN LEVEL 1-3 OR FEVER; Start 02/07/17 at 22:30 Morphine Sulfate (morphine) 2 mg Q4H PRN IV PAIN LEVEL 7-10; Start 02/07/17 at 22:30 Lorazepam (Ativan) 1 mg Q2H PRN IV ANXIETY; Start 02/07/17 at 22:30 Famotidine (Pepcid Iv) 20 mg DAILY IV Last administered on 02/09/17 08:26; Admin Dose 20 MG; Start 02/08/17 at 09:00 Heparin Sodium (Porcine) (Heparin (5000 Units/0.5 ml)) 5,000 unit Q12 SC Last administered on 02/09/17 08:28; Admin Dose 5,000 UNIT; Start 02/08/17 at 09:00 Acetaminophen (Tylenol Supp) 650 mg Q4H PRN [place] TEMP > 37C; Start 02/07/17 at 22: 30 Acetaminophen (Tylenol Liquid) 650 mg Q4H PRN PO TEMP > 37C; Start 02/07/17 at 22:30 Acetaminophen (Tylenol Supp) 500 mg Q6H [place] ; Start 02/08/17 at 22:30 Acetaminophen 500 mg 500 mg Q6H PO Last administered on 02/09/17 10:36; Admin Dose 500 MG; Start 02/08/17 at 22:30 Cefepime HCl (Maxipime 1gm/50 ml (Pmx)) 50 ml @ 100 mls/hr Q12 IVPB Last administered on 02/09/17 08:26; Admin Dose 100 MLS/HR; Start 02/08/17 at 09:00 Meperidine HCl (Demerol) 12.5 mg Q4H PRN IV POST OPERATIVE SHIVERING; Start 02/08/17 at 02:00 Meperidine HCl (Demerol) 25 mg Q4H PRN IV POST OPERATIVE SHIVERING; Start at 02:00 Eye Lubricant (Akwa Oint) 1 applic Q6 BOTH EYES Last administered on 02/09/17 05:11; Admin Dose 1 APPLIC; Start 02/08/17 at 02:00 Eye Lubricant (Artificial Tears Oph) 2 drop Q6 BOTH EYES Last administered on 05:11; Admin Dose 2 DROP; Start 02/08/17 at 02:00 Diagnostic Test (Pha) (Accu-Chek) 1 ea Q1H XX Last administered on 02/09/17 11: 08; Admin Dose 1 EA; Start 02/08/17 at 02:00 Dextrose (D50w Syringe) 25 ml Q15M PRN IV Till BS 80 mg/dL or above x2; Start 02/08/17 at 02:00 Dextrose 50 ml 50 ml Q15M PRN IV Till BS 80 mg/dL or above x2; Start 02/08/17 at 02:00 Norepinephrine/ Dextrose (Levophed/D5W) 500 ml @ 1.87 mls/hr TITRATE IV ; Start 02/08/17 at 07:00 Hydralazine HCl 10 mg 10 mg Q4H PRN IV PRN SBP>170; Start 02/08/17 at 12:00 Potassium Chloride/Dextrose/ Sod Cl 1,000 ml @ 125 mls/hr Q8H IV Last administered on 02/09/17 11:12; Admin Dose 125 MLS/HR; Start 02/08/17 at 12:30 Vancomycin HCl 1.25 gm/Sodium Chloride 250 ml @ 83.333 mls/ hr Q36H IVPB ; Start 02/09/17 at 16:00 Vecuronium [place]/Dextrose (Norcuron/D5W) 100 ml @ 4.32 mls/hr TITRATE IV Last administered on 02/09/17 10:06; Admin Dose 4.32 MLS/HR; Start 02/09/17 at 07 :30 Assessment/Plan Chief Complaint/Hosp Course 76 yo female with recent admission for pneumonia, with hx of HTN, COPD, SVT, aflutter, DM admitted post cardiac arrest on hypothermia protocol. -MRI Brain ordered to eval for extent of hypoxic injury currenly absent brainstem reflexes will continue to reexamine, poor prognosis for a meaningful neurologic recovery -EEG pending to be done after rewarming will follow Problems: JUVENCIO POOLE MD Feb 09, 2017 11:41
[2017-02-09 12:33] LABS: PHOSPHORUS 3.9 mg/dl (2.5-4.9)
[2017-02-09 13:03] LABS: INR 1.4; PROTIME 17.2 Sec (12.2-14.2); PT RATIO 1.3
[2017-02-09 13:08] LABS: PARTIAL THROMBOPLASTIN TIME 42.2 Sec (25.0-35.0)
[2017-02-09] MEDS ORDERED: ALBUMIN HUMAN 25% 100 ML IV ONE (15:00)
--- NOTE | 2017-02-09 15:16 | CONS ---
DATE OF ADMISSION: 02/07/2017 DATE OF CONSULTATION: 02/09/2017 TYPE OF CONSULTATION: Nephrology REFERRING PHYSICIAN: Sudeep Bocanegra MD REASON FOR CONSULTATION: Acute kidney injury with a creatinine bumped up to 1.4, decreased urine ou tput. HISTORY OF PRESENT ILLNESS: This is a 76-year-old female with a past medical history of hypertensio n, hyperlipidemia, diabetes mellitus type 2, COPD, history of atrial flutter and supraventricular ta chycardia, who left against medical advice earlier from [facility] 2 days before. She pr esented with acute respiratory failure secondary to severe bilateral pneumonia, cardiac arrest. She had cardiopulmonary resuscitation and is currently on hypothermia protocol. The patient's creatini ne has been slowly creeping up from a normal baseline creatinine of 0.7, 0.8 to 1.6 today. Her urin e output has also dropped to 10 mL/hour and renal has been consulted for further workup of acute kid niranjan injury and oliguria. REVIEW OF SYSTEMS: Unable to obtain from the patient since she is currently intubated on hypothermi a protocol and also on ventilator. PAST MEDICAL HISTORY: Type 2 diabetes mellitus, hypertension, COPD, hyperlipidemia, history of atri al flutter and supraventricular tachycardia. There is a questionable history of possible nephrolith iasis and possible chronic kidney disease. PAST SURGICAL HISTORY: Tracheostomy. SOCIAL HISTORY: Unknown. ALLERGIES: NO KNOWN DRUG ALLERGIES. HOME MEDICATIONS: Have been reviewed. PHYSICAL EXAMINATION: VITAL SIGNS: Temperature 98.1, heart rate 114, respirations 20, blood pressure 137/55, saturation 9 6% on a mechanical ventilator. HEENT: Pupils equal, round, reactive to light and accommodation. ET tube in place. NECK: Supple. Central line in place. Jugular venous distention. No lymphadenopathy. LUNGS: Bibasilar crackles present with decreased breath sounds at both bases. HEART: S1, S2, tachycardia, no murmur. ABDOMEN: Soft, nontender, morbidly obese. EXTREMITIES: 2+ pitting edema. GENITOURINARY: Ferro catheter in place. NEUROLOGICAL: Uncooperative for exam, the patient is currently on hypothermia protocol. PSYCHIATRIC: Not able to assess. LABORATORY DATA/DIAGNOSTIC IMAGING: Sodium 141, potassium 4.6, chloride 105, bicarbonate 27, BUN 33 , creatinine 1.4, glucose 131, calcium 9.7. On admission, the patient's creatinine was 1.9, which i mproved to 1.42 and the patient's urine output has been dropped to 10 mL/hour. IMPRESSION: This is a 76-year-old female who has been admitted for acute respiratory failure and nieto d a cardiac arrest, status post cardiopulmonary resuscitation. Renal has been consulted for: 1. Acute kidney injury versus acute kidney injury on chronic kidney disease, oliguric secondary to hemodynamics from cardiac arrest causing ischemic acute tubular necrosis. 2. History of possible chronic kidney disease secondary to diabetic nephropathy, unknown stage. 3. History of hypertension. 4. History of diabetes mellitus type 2. 5. Acute respiratory failure secondary to cardiac arrest and pneumonia, currently intubated on vent ilator. 6. Status post cardiac arrest, status post cardiopulmonary resuscitation. 7. Rule out anoxic encephalopathy. 8. History of hyperlipidemia. PLAN: 1. Thank you, Dr. Bocanegra, for this consultation. The patient's urine output has been dropped from 30 mL/hour to 10 mL/hour in the last 6 hours. Currently, she is on a hypothermia protocol. I will o rder the patient's urine studies including a urine protein, urine protein-creatinine ratio, urine so dium, urine eosinophils and urine uric acid. 2. A.m. labs including a CK total and uric acid has been ordered. 3. Renal ultrasound has been ordered. 4. Currently the patient is on an insulin drip and vecuronium drip. Blood pressure has been systol ic 130s to 140s. She is also getting D5 half NS at 125 mL/hour with 20 mEq KCl. I will continue th at. 5. I will give albumin 25% 100 mL IV x1 followed by Lasix 40 mg IV x1 and another dose of the Lasix 20 mg at 8:00 p.m. 6. The patient will need better stabilization of her blood pressure. Currently she is intubated in the ICU. She has been seen in the ICU. Discussed with the family at bedside. I will continue to follow this patient along with you. Total time spent in this patient's consultation, communicating with the family members and monique darnell with the nursing staff about the plan and care took more than 90 minutes. Dictated By: UMANG MCARTHUR MD, KP/SWAPNA Conf#: [id number] DID#: [id number]
[2017-02-09] MEDS ORDERED: FUROSEMIDE 40 MG INJ IV ONE (16:00)
[2017-02-09] MEDS: VANCOMYCIN 1.25 GM in SOD CHLORIDE 0.9% 250 ML IVPB SCH (16:29)
[2017-02-09] MEDS ORDERED: FUROSEMIDE 20 MG INJ IV ONE (20:00)
[2017-02-09 21:14] LABS: PROTEIN/CREAT RATIO 6.87 RATIO
[2017-02-09 21:15] LABS: PROTEIN URINE > 600.0 mg/dl (0.0-11.9)
[2017-02-10] VITALS (44 sets, daily range): BP systolic 92–142; BP diastolic 46–70; PULSE 83–124; RESP 20–36
[2017-02-10] MEDS: ARTIFICIAL TEARS 15 ML OPH BOTH EYES SCH ×5 (00:01→23:51)
[2017-02-10] MEDS: OCULAR LUBRICANT 3.5 GM OPH OINT BOTH EYES SCH ×5 (00:01→23:51)
[2017-02-10] MEDS: ACCU-CHEK XX SCH ×25 (00:01→23:51)
[2017-02-10] MEDS: INSULIN HUMAN REGULAR 100 UNIT in SOD CHLORIDE 0.9% 99 ML IV SCH (00:03)
[2017-02-10] MEDS: ACETAMINOPHEN 650 MG SUPP PR SCH (04:30)
[2017-02-10] MEDS: D5W-0.45 NACL + KCL 20 MEQ 1,000 ML IV SCH ×3 (05:43→22:29)
[2017-02-10] MEDS: ACETAMINOPHEN 650MG/20.3ML CUP PO SCH (05:43)
[2017-02-10] MEDS: MIDAZOLAM (DRIP) 50 mg/50 mL 50 ML IV SCH ×2 (05:54→19:34)
[2017-02-10 05:59] LABS: AADO2 Arterial 167.5 mmHg (7.0-24.0); Arterial Base Excess -0.3 mmol/L (-3.0-3); Arterial COHb 0.3 % (0.0-3.0); Arterial HCO3 24.3 mmol/L (22.0-26.0); Arterial MetHb 0.4 % (0.0-1.5); Arterial Total Hemglobin 11.6 g/dl (12.0-18.0); MODE VENT - AC
[2017-02-10 06:31] LABS: ADD SCAN DIFF NO
[2017-02-10 06:35] LABS: BASOPHIL # 0.1 10^3/ul (0.0-0.1); BASOPHILS % 0.3 % (0.0-2.0); EOSINOPHILS # 0.1 10^3/ul (0.0-0.5); EOSINOPHILS % 0.4 % (0.0-7.0); HEMATOCRIT 30.2 % (37.0-47.0); HEMOGLOBIN 9.4 g/dl (12.0-16.0); LYMPHOCYTES # 1.1 10^3/ul (0.8-2.9); LYMPHOCYTES % 5.6 % (15.0-51.0); MEAN CORPUSCULAR HEMOGLOBIN 27.6 pg (29.0-33.0); MEAN CORPUSCULAR HGB CONC 31.1 g/dl (32.0-37.0); MEAN CORPUSCULAR VOLUME 88.8 fl (82.0-101.0); MEAN PLATELET VOLUME 10.1 fl (7.4-10.4); MONOCYTE # 1.1 10^3/ul (0.3-0.9); MONOCYTES % 5.5 % (0.0-11.0); NEUTROPHIL # 16.8 10^3/ul (1.6-7.5); NEUTROPHILS % 86.8 % (39.0-77.0); PLATELET COUNT 391 10^3/UL (140-415); RED CELL DISTRIBUTION WIDTH 16.6 % (11.5-14.5); WHITE BLOOD COUNT 19.4 10^3/ul (4.8-10.8)
[2017-02-10 07:55] LABS: CALCIUM 9.1 mg/dl (8.4-10.2); CREATININE 2.09 mg/dl (0.44-1.00); POTASSIUM 4.7 mmol/L (3.5-5.1)
[2017-02-10] MEDS: CEFEPIME 1GM/50 ML (PMX) 50 ML IVPB SCH (08:33)
[2017-02-10] MEDS: HEPARIN 5,000 UNIT/0.5 ML VIAL SC SCH ×2 (08:34→20:58)
[2017-02-10] MEDS: FAMOTIDINE 20 MG INJ IV SCH (08:35)
[2017-02-10] MEDS ORDERED: METOPROLOL 25 MG TAB PO SCH (09:30)
--- NOTE | 2017-02-10 09:40 | PN ---
Date/Time of Note Date/Time of Note DATE: 02/10/17 TIME: 09:27 Assessment/Plan VTE Prophylaxis VTE Prophylaxis Intervention: SCD's Lines/Catheters IV C[facility]ter Type (from [facility]): Central Line Central line still needed: Yes Urinary Cath still in place: Yes Reason Cath still needed: urinary retention Assessment/Plan Chief Complaint/Hosp Course ASSESSMENT AND PLAN: 76-year-old lady who left against medical advice earlier yesterday from [facility] who comes in with acute respiratory failure secondary to severe bilateral pneumonia, cardiac arrest, status post cardiopulmonary resuscitation, now on hypothermia protocol. 1. Cardiac arrest - status post return of spontaneous circulation, s/p hypothermia protocol. Patient is intubated. Finished rewarming phase yesterday. - f/u EEG results (pending), and neurology consult, pulmonary consult rec's - Continue broad spectrum antibiotics as well. - consider anti-sz meds - insulin drip IV 2. Respiratory distress. Again, she has bilateral pneumonia. She has cardiac arrest, intubated - again, follow pulmonary recommendations. - Continue mechanical ventilation, broad spectrum antibiotics. - Follow up final culture results. - Tylenol p.r.n. for pain and fevers 3. History of type 2 diabetes, hyperglycemia - A1c - 7.8 - for now continue insulin drip as well. 4. History of chronic obstructive pulmonary disease, see #2. 5. History of atrial flutter and supraventricular tachycardia. - monitor HR (will start low dose BB for tachy), f/u cardiology consult rec's 6. Sepsis - again secondary to what looks like healthcare-associated pneumonia. - See #1 and #2 as far as broad spectrum antibiotics, IV fluids. 7. History of hypertension. Again, monitor for now. 8. Gastrointestinal prophylaxis. H2 sonja. 9. Deep venous thrombosis prophylaxis - sequential compression devices. Dispo: poor prognosis, being followed by Neuro team - pt has currently absent brainstem reflexes, MRI brain pending. EEG results pending as well. Will also consult palliative team. Critical care time spent today = 45 min. Problems: Subjective 24 Hr Interval Summary Free Text/Dictation Pt still intubated, insulin drip, seen by neuro, pulm, renal teams yesterday. Exam/Review of Systems Vital Signs Vitals Vital Signs Date Time Temp Pulse Resp B/P Pulse Ox O2 Delivery O2 Flow Rate FiO2 02/10/17 07:35 98 20 98 40 02/10/17 06:00 134/63 Mechanical Ventilator 02/10/17 04:00 99.2 Intake and Output 02/09/17 02/09/17 02/10/17 15:00 23:00 07:00 Intake Total 1160.60 ml 1681 ml 694 ml Output Total 81 ml 1116 ml 944 ml Balance 1079.60 ml 565 ml -250 ml Exam GENERAL: The patient lying in bed, intubated and sedated. HEENT: Unable to fully assess. NECK: Supple, no thyromegaly. LUNGS: Distant breath sounds bilaterally. CARDIOVASCULAR: S1, S2 heard. No rubs or gallops. ABDOMEN: Soft, nontender, nondistended. Normal bowel sounds. MUSCULOSKELETAL: No lower extremity edema bilaterally. NEUROLOGIC: Unable to fully assess as the patient is intubated and sedated Results Result Diagram: 02/10/17 0550 02/10/17 0550 Results 24 hrs Laboratory Tests Test 02/09/17 10:02 02/09/17 11:03 02/09/17 11:52 02/09/17 12:00 Bedside Glucose 138 142 143 Prothrombin Time 17.2 H Prothrombin Time Ratio 1.3 INR International Normalized Ratio 1.40 Activated Partial Thromboplast Time 42.2 H Phosphorus Level 3.9 Magnesium Level 2.0 Amylase Level 55 Lipase 21 L Test 02/09/17 12:58 02/09/17 14:05 02/09/17 14:45 02/09/17 15:23 Bedside Glucose 137 130 116 Urine Eosinophils % 0.0 Urine Random Creatinine 87.26 Urine Random Sodium 60 Urine Protein/Creatinine Ratio 6.87 Urine Total Protein > 600.0 H Test 02/09/17 16:22 02/09/17 16:59 02/09/17 17:52 02/09/17 19:05 Bedside Glucose 121 133 122 131 Test 02/09/17 20:10 02/09/17 21:04 02/09/17 22:14 02/09/17 23:10 Bedside Glucose 161 158 137 142 Test 02/10/17 00:00 02/10/17 01:31 02/10/17 02:26 02/10/17 03:31 Bedside Glucose 158 136 117 114 Test 02/10/17 04:25 02/10/17 05:50 02/10/17 05:54 02/10/17 06:00 Bedside Glucose 125 96 White Blood Count 19.4 #H Red Blood Count 3.40 L Hemoglobin 9.4 L Hematocrit 30.2 L Mean Corpuscular Volume 88.8 Mean Corpuscular Hemoglobin 27.6 L Mean Corpuscular Hemoglobin Concent 31.1 L Red Cell Distribution Width 16.6 H Platelet Count 391 Mean Platelet Volume 10.1 Neutrophils % 86.8 H Lymphocytes % 5.6 L Monocytes % 5.5 Eosinophils % 0.4 Basophils % 0.3 Nucleated Red Blood Cells % 0.0 Neutrophils # 16.8 H Lymphocytes # 1.1 Monocytes # 1.1 H Eosinophils # 0.1 Basophils # 0.1 Nucleated Red Blood Cells # 0.0 Sodium Level 140 Potassium Level 4.7 Chloride Level 105 Carbon Dioxide Level 27 Anion Gap 13 Blood Urea Nitrogen 32 H Creatinine 2.09 H Glucose Level 97 Uric Acid 8.0 H Calcium Level 9.1 Creatine Kinase 142 Blood Gas Specimen Source Blood arterial Arterial Blood Date Drawn 02/10/2017 5:50:21 AM Arterial Blood pH (Temp corrected) 7.403 Arterial Blood pCO2 (Temp correct) 39.9 Arterial Blood pO2 (Temp corrected) 71.8 L Arterial Blood HCO3 24.3 Arterial Blood Base Excess -0.3 Arterial Blood Oxygen Saturation 93.7 L Sid Test N/A Arterial Blood Gas Puncture Site Right Brachial Arterial Blood Carboxyhemoglobin 0.3 Arterial Blood Methemoglobin 0.4 Blood Gas A-a O2 Differential 167.5 H Oxyhemoglobin Percent 93.0 Total Hemoglobin 11.6 L Blood Gas Temperature 37.0 Blood Gas Respiration Rate 20.0 Blood Gas Actual Respiration Rate 22 Blood Gas Modality VENT - AC FiO2 40.0 Blood Gas Tidal Volume 500.0 Blood Gas Low PEEP Setting 5.0 Blood Gas Inspiratory Pressure 35.0 Blood Gas Notified Whom KM Blood Gas Notified Time 02/10/2017 5:59:04 AM Test 02/10/17 06:50 02/10/17 08:35 Bedside Glucose 124 148 Medications Medications Current Medications Midazolam HCl (Versed) 50 ml @ 1 mls/hr TITRATE IV Last administered on t 05:54; Admin Dose 2 MLS/HR; Start 02/07/17 at 22:30 Ondansetron HCl (Zofran Inj) 4 mg Q6H PRN IV NAUSEA AND/OR VOMITING; Start 02/07 at 22:30 Acetaminophen (Tylenol Liquid) 650 mg Q6H PRN PO PAIN LEVEL 1-3 OR FEVER; Start 02/07/17 at 22:30 Morphine Sulfate (morphine) 2 mg Q4H PRN IV PAIN LEVEL 7-10; Start 02/07/17 at 22:30 Lorazepam (Ativan) 1 mg Q2H PRN IV ANXIETY; Start 02/07/17 at 22:30 Famotidine (Pepcid Iv) 20 mg DAILY IV Last administered on 02/10/17 08:35; Admin Dose 20 MG; Start 02/08/17 at 09:00 Heparin Sodium (Porcine) (Heparin (5000 Units/0.5 ml)) 5,000 unit Q12 SC Last administered on 02/10/17 08:34; Admin Dose 5,000 UNIT; Start 02/08/17 at 09:00 Acetaminophen (Tylenol Supp) 650 mg Q4H PRN [place] TEMP > 37C; Start 02/07/17 at 22: 30 Acetaminophen (Tylenol Liquid) 650 mg Q4H PRN PO TEMP > 37C; Start 02/07/17 at 22:30 Acetaminophen (Tylenol Supp) 500 mg Q6H [place] ; Start 02/08/17 at 22:30 Acetaminophen 500 mg 500 mg Q6H PO Last administered on 02/10/17 05:43; Admin Dose 500 MG; Start 02/08/17 at 22:30 Cefepime HCl (Maxipime 1gm/50 ml (Pmx)) 50 ml @ 100 mls/hr Q12 IVPB Last administered on 02/10/17 08:33; Admin Dose 100 MLS/HR; Start 02/08/17 at 09:00 Meperidine HCl (Demerol) 12.5 mg Q4H PRN IV POST OPERATIVE SHIVERING; Start 02/08/17 at 02:00 Meperidine HCl (Demerol) 25 mg Q4H PRN IV POST OPERATIVE SHIVERING; Start at 02:00 Eye Lubricant (Akwa Oint) 1 applic Q6 BOTH EYES Last administered on 02/10/17 05:43; Admin Dose 1 APPLIC; Start 02/08/17 at 02:00 Eye Lubricant (Artificial Tears Oph) 2 drop Q6 BOTH EYES Last administered on 05:43; Admin Dose 2 DROP; Start 02/08/17 at 02:00 Diagnostic Test (Pha) (Accu-Chek) 1 ea Q1H XX Last administered on 02/10/17 08 :20; Admin Dose 1 EA; Start 02/08/17 at 02:00 Dextrose (D50w Syringe) 25 ml Q15M PRN IV Till BS 80 mg/dL or above x2; Start 02/08/17 at 02:00 Dextrose 50 ml 50 ml Q15M PRN IV Till BS 80 mg/dL or above x2; Start 02/08/17 at 02:00 Norepinephrine/ Dextrose (Levophed/D5W) 500 ml @ 1.87 mls/hr TITRATE IV ; Start 02/08/17 at 07:00 Hydralazine HCl 10 mg 10 mg Q4H PRN IV PRN SBP>170; Start 02/08/17 at 12:00 Potassium Chloride/Dextrose/ Sod Cl 1,000 ml @ 125 mls/hr Q8H IV Last administered on 02/10/17 05:43; Admin Dose 125 MLS/HR; Start 02/08/17 at 12:30 Vancomycin HCl/ Sodium Chloride (Vancocin/NS) 250 ml @ 83.333 mls/ hr Q36H IVPB Last administered on 02/09/17 16:29; Admin Dose 83.333 MLS/HR; Start at 16:00 MIGUEL ANGEL MORGAN Feb 10, 2017 09:38
--- NOTE | 2017-02-10 10:07 | RADRPT ---
PROCEDURE: Retroperitoneal US. CLINICAL INDICATION: Renal insufficiency TECHNIQUE: Multiple sonographic images of the kidneys and retroperitoneum were obtained. The imag es were reviewed on a PACS workstation. COMPARISON: No prior studies are available for comparison. FINDINGS: The right kidney measures 9.0 cm. The left kidney measures 8.9 cm. There is increased echogenicity of the kidneys. There is a 1.1 cm stone in the right kidney. There are multiple simple cysts in the left kidney, the largest measuring 2.9 cm. There is no evidence of hydronephrosis. The urinary bladder is decompressed by a Ferro catheter and not seen.. IMPRESSION: Echogenic kidneys, consistent with medical renal disease. No evidence of hydronephrosis. Right nephrolithiasis. Simple cysts in the left kidney. RPTAT: AA .Rogelio Iverson MD, Date Time Electronically viewed and signed by .Rogelio Iverson MD, MD on 02/10/2017 10:07 .S/
--- NOTE | 2017-02-10 10:11 | CONS ---
Date/Time of Note Date/Time of Note DATE: 02/10/17 TIME: 10:08 Assessment/Plan Assessment/Plan Chief Complaint/Hosp Course IMPRESSION: 1. Status post cardiopulmonary arrest. 2. Abnormal electrocardiogram-negative troponin x 3 3. Hypertension. 4. Respiratory failure. 5. History of atrial fibrillation, atrial flutter. 6. Possible congestive heart failure, pneumonia by chest x-ray. 7. Encephalopathy. 8. Renal failure. 9. Hypernatremia-improved 10. Anemia. 11. Leukocytosis. 12. Urinary tract infection. 14. Seizure activity-? of hand Recc: -Tele -rewarming -Increase BB -continue abx's and f/u cx data -Follow MS closely -Neuro following Problems: Consultation Date/Type/Reason Admit Date/Time Feb 07, 2017 at 22:31 Initial Consult Date 02/08/17 Type of Consultation: cardiology Reason for Consultation cardiac arrest Referring Provider: MIGUEL ANGEL MORGAN Exam/Review of Systems Vital Signs Vitals Vital Signs Date Time Temp Pulse Resp B/P Pulse Ox O2 Delivery O2 Flow Rate FiO2 02/10/17 10:00 109 21 116/54 99 Mechanical Ventilator 02/10/17 08:00 99.1 02/10/17 07:35 40 Intake and Output 02/09/17 02/09/17 02/10/17 15:00 23:00 07:00 Intake Total 1160.60 ml 1681 ml 694 ml Output Total 81 ml 1116 ml 944 ml Balance 1079.60 ml 565 ml -250 ml Exam Review of Systems: CONSTITUTIONAL: No fevers, chills. PULMONARY: intubated CARDIOVASCULAR: No chest pain/palpitations GASTROINTESTINAL: No nausea/vomiting. GENITOURINARY: No hematuria/dysuria. MUSCULOSKELETAL: No obvious myagias/arthalgias. PSYCHIATRIC: The patient denies depression. NEUROLOGIC: Encephalopathy Constitutional: alert, oriented Psych: no complaints Head: normocephalic ENMT: mucosa pink and moist Neck: jvd, supple Respiratory: diminished breath sounds Cardiovascular: regular rate and rhythm Gastrointestinal: non-tender, soft Musculoskeletal: muscle tone (normal) Extremities: edema (none) Neurological: unresponsive Results Result Diagram: 02/10/17 0550 02/10/17 0550 Results 24 hrs Laboratory Tests Test 02/09/17 11:03 02/09/17 11:52 02/09/17 12:00 02/09/17 12:58 Bedside Glucose 142 143 137 Prothrombin Time 17.2 H Prothrombin Time Ratio 1.3 INR International Normalized Ratio 1.40 Activated Partial Thromboplast Time 42.2 H Phosphorus Level 3.9 Magnesium Level 2.0 Amylase Level 55 Lipase 21 L Test 02/09/17 14:05 02/09/17 14:45 02/09/17 15:23 02/09/17 16:22 Bedside Glucose 130 116 121 Urine Eosinophils % 0.0 Urine Random Creatinine 87.26 Urine Random Sodium 60 Urine Protein/Creatinine Ratio 6.87 Urine Total Protein > 600.0 H Test 02/09/17 16:59 02/09/17 17:52 02/09/17 19:05 02/09/17 20:10 Bedside Glucose 133 122 131 161 Test 02/09/17 21:04 02/09/17 22:14 02/09/17 23:10 02/10/17 00:00 Bedside Glucose 158 137 142 158 Test 02/10/17 01:31 02/10/17 02:26 02/10/17 03:31 02/10/17 04:25 Bedside Glucose 136 117 114 125 Test 02/10/17 05:50 02/10/17 05:54 02/10/17 06:00 02/10/17 06:50 White Blood Count 19.4 #H Red Blood Count 3.40 L Hemoglobin 9.4 L Hematocrit 30.2 L Mean Corpuscular Volume 88.8 Mean Corpuscular Hemoglobin 27.6 L Mean Corpuscular Hemoglobin Concent 31.1 L Red Cell Distribution Width 16.6 H Platelet Count 391 Mean Platelet Volume 10.1 Neutrophils % 86.8 H Lymphocytes % 5.6 L Monocytes % 5.5 Eosinophils % 0.4 Basophils % 0.3 Nucleated Red Blood Cells % 0.0 Neutrophils # 16.8 H Lymphocytes # 1.1 Monocytes # 1.1 H Eosinophils # 0.1 Basophils # 0.1 Nucleated Red Blood Cells # 0.0 Sodium Level 140 Potassium Level 4.7 Chloride Level 105 Carbon Dioxide Level 27 Anion Gap 13 Blood Urea Nitrogen 32 H Creatinine 2.09 H Glucose Level 97 Uric Acid 8.0 H Calcium Level 9.1 Creatine Kinase 142 Bedside Glucose 96 124 Blood Gas Specimen Source Blood arterial Arterial Blood Date Drawn 02/10/2017 5:50:21 AM Arterial Blood pH (Temp corrected) 7.403 Arterial Blood pCO2 (Temp correct) 39.9 Arterial Blood pO2 (Temp corrected) 71.8 L Arterial Blood HCO3 24.3 Arterial Blood Base Excess -0.3 Arterial Blood Oxygen Saturation 93.7 L Sid Test N/A Arterial Blood Gas Puncture Site Right Brachial Arterial Blood Carboxyhemoglobin 0.3 Arterial Blood Methemoglobin 0.4 Blood Gas A-a O2 Differential 167.5 H Oxyhemoglobin Percent 93.0 Total Hemoglobin 11.6 L Blood Gas Temperature 37.0 Blood Gas Respiration Rate 20.0 Blood Gas Actual Respiration Rate 22 Blood Gas Modality VENT - AC FiO2 40.0 Blood Gas Tidal Volume 500.0 Blood Gas Low PEEP Setting 5.0 Blood Gas Inspiratory Pressure 35.0 Blood Gas Notified Whom KM Blood Gas Notified Time 02/10/2017 5:59:04 AM Test 02/10/17 08:35 Bedside Glucose 148 Medications Medications Current Medications Midazolam HCl (Versed) 50 ml @ 1 mls/hr TITRATE IV Last administered on 05:54; Admin Dose 2 MLS/HR; Start 02/07/17 at 22:30 Ondansetron HCl (Zofran Inj) 4 mg Q6H PRN IV NAUSEA AND/OR VOMITING; Start 02/07 at 22:30 Acetaminophen (Tylenol Liquid) 650 mg Q6H PRN PO PAIN LEVEL 1-3 OR FEVER; Start 02/07/17 at 22:30 Morphine Sulfate (morphine) 2 mg Q4H PRN IV PAIN LEVEL 7-10; Start 02/07/17 at 22:30 Lorazepam (Ativan) 1 mg Q2H PRN IV ANXIETY; Start 02/07/17 at 22:30 Famotidine (Pepcid Iv) 20 mg DAILY IV Last administered on 02/10/17 08:35; Admin Dose 20 MG; Start 02/08/17 at 09:00 Heparin Sodium (Porcine) (Heparin (5000 Units/0.5 ml)) 5,000 unit Q12 SC Last administered on 02/10/17 08:34; Admin Dose 5,000 UNIT; Start 02/08/17 at 09:00 Acetaminophen (Tylenol Supp) 650 mg Q4H PRN [place] TEMP > 37C; Start 02/07/17 at 22: 30 Acetaminophen 650 mg 650 mg Q4H PRN PO TEMP > 37C; Start 02/07/17 at 22:30 Cefepime HCl (Maxipime 1gm/50 ml (Pmx)) 50 ml @ 100 mls/hr Q12 IVPB Last administered on 02/10/17 08:33; Admin Dose 100 MLS/HR; Start 02/08/17 at 09:00 Meperidine HCl (Demerol) 12.5 mg Q4H PRN IV POST OPERATIVE SHIVERING; Start 02/08/17 at 02:00 Meperidine HCl (Demerol) 25 mg Q4H PRN IV POST OPERATIVE SHIVERING; Start at 02:00 Eye Lubricant (Akwa Oint) 1 applic Q6 BOTH EYES Last administered on 02/10/17 05:43; Admin Dose 1 APPLIC; Start 02/08/17 at 02:00 Eye Lubricant (Artificial Tears Oph) 2 drop Q6 BOTH EYES Last administered on 05:43; Admin Dose 2 DROP; Start 02/08/17 at 02:00 Diagnostic Test (Pha) (Accu-Chek) 1 ea Q1H XX Last administered on 02/10/17 08 :20; Admin Dose 1 EA; Start 02/08/17 at 02:00 Dextrose (D50w Syringe) 25 ml Q15M PRN IV Till BS 80 mg/dL or above x2; Start 02/08/17 at 02:00 Dextrose 50 ml 50 ml Q15M PRN IV Till BS 80 mg/dL or above x2; Start 02/08/17 at 02:00 Norepinephrine/ Dextrose (Levophed/D5W) 500 ml @ 1.87 mls/hr TITRATE IV ; Start 02/08/17 at 07:00 Hydralazine HCl 10 mg 10 mg Q4H PRN IV PRN SBP>170; Start 02/08/17 at 12:00 Potassium Chloride/Dextrose/ Sod Cl 1,000 ml @ 125 mls/hr Q8H IV Last administered on 02/10/17 05:43; Admin Dose 125 MLS/HR; Start 02/08/17 at 12:30 Vancomycin HCl/ Sodium Chloride (Vancocin/NS) 250 ml @ 83.333 mls/ hr Q36H IVPB Last administered on 02/09/17 16:29; Admin Dose 83.333 MLS/HR; Start at 16:00 Metoprolol Tartrate (Lopressor) 12.5 mg BID PO ; Start 02/10/17 at 09:30 LIONEL NEGRON Feb 10, 2017 10:11
[2017-02-10] MEDS: LORAZEPAM 2 MG INJ IV PRN ×5 (10:29→20:55)
--- NOTE | 2017-02-10 13:00 | CONS ---
Date/Time of Note Date/Time of Note DATE: 02/10/17 TIME: 12:40 Assessment/Plan Assessment/Plan Additional Assessment/Plan This is a 76-year-old female who has been admitted for acute respiratory failure and had a cardiac arrest, status post cardiopulmonary resuscitation. Renal has been consulted for: - Elevated Uric acid =8.0 today, plan for allopurinol only if OGT is ok to use for meds. Juanito Morgan - Plan for extubation per family tomorrow . will hold on to Allopurinol - Acute kidney injury versus acute kidney injury on chronic kidney disease, oliguric secondary to hemodynamics from cardiac arrest causing ischemic acute tubular necrosis. - UO= 2.1 today - Cr = 2.09 today - renal US= Echogenic kidneys, consistent with medical renal disease. No evidence of hydronephrosis..Right nephrolithiasis.Simple cysts in the left kidney. - possible seizures - seizure precautions - per neuro, MRI brain- fu - History of possible chronic kidney disease secondary to diabetic nephropathy , unknown stage. - History of hypertension. - History of diabetes mellitus type 2. - Acute respiratory failure secondary to cardiac arrest and pneumonia, currently intubated on ventilator. - SP intubated-Status post cardiac arrest, status post cardiopulmonary resuscitation. -Cont monitoring in the ICU. Discussed with the family at bedside. I will continue to follow this patient. - Rule out anoxic encephalopathy. - History of hyperlipidemia. PLAN: 1. The patient's urine output 60-100 cc/hr per staff Currently, she is on a hypothermia protocol. I will order the patient's urine studies including a urine protein, urine protein-creatinine ratio, urine sodium, urine eosinophils and urine uric acid. 2. A.m. labs including a CK total= uric acid = elevated 8.0 3. Renal ultrasound -Echogenic kidneys, consistent with medical renal disease.No evidence of hydronephrosis.Right nephrolithiasis.Simple cysts in the left kidney.. 4. Currently the patient is on an insulin drip and vecuronium drip. Blood pressure has been systolic 130s to 140s. She is also getting D5 half NS at 125 mL/hour with 20 mEq KCl. I will continue that. 5. SP albumin 25% 100 mL IV x1 followed by Lasix 40 mg IV x1 and another dose of the Lasix 20 mg yesterday Total time spent in this patient's consultation, communicating with the family members and communicating with the nursing staff about the plan and care took more than 90 minutes. Consultation Date/Type/Reason Admit Date/Time Feb 07, 2017 at 22:31 Initial Consult Date 02/08/17 Type of Consultation: cardiology Referring Provider: MIGUEL ANGEL MORGAN 24 HR Interval Summary Free Text/Dictation remains intubated good UO-2.1. 60-100 cc/hr Cr IMPROVED open eyes possible seizures- neuro following, MRI brain - fu Renal US- Echogenic kidneys, consistent with medical renal disease. No evidence of hydronephrosis..Right nephrolithiasis.Simple cysts in the left kidney. Family at bed side- all Qs answered. Dw staff Subjective hx not possible: pt non-verbal, pt critical status Constitutional: requiring IVF, requiring O2 Exam/Review of Systems Vital Signs Vitals Vital Signs Date Time Temp Pulse Resp B/P Pulse Ox O2 Delivery O2 Flow Rate FiO2 02/10/17 11:25 111 20 100 40 02/10/17 10:00 116/54 Mechanical Ventilator 02/10/17 08:00 99.1 Intake and Output 02/09/17 02/09/17 02/10/17 15:00 23:00 07:00 Intake Total 1160.60 ml 1681 ml 694 ml Output Total 81 ml 1116 ml 1043 ml Balance 1079.60 ml 565 ml -349 ml Exam Constitutional: non-verbal Respiratory: clear to auscultation, diminished breath sounds, other (remains intubated) Cardiovascular: nl pulses, regular rate and rhythm Gastrointestinal: non-tender, other (OGT- connected to low intermittent suction - scant drainage noted.), soft Genitourinary - Female: other (fc- clear/yellow urine , 60-100 cc/hr) Musculoskeletal: other (edema ) Extremities: normal pulses Neurological: lethargic, other (eopen eyes at times. ) Results Result Diagram: 02/10/17 0550 02/10/17 0550 Results 24 hrs Laboratory Tests Test 02/09/17 12:58 02/09/17 14:05 02/09/17 14:45 02/09/17 15:23 Bedside Glucose 137 130 116 Urine Eosinophils % 0.0 Urine Random Creatinine 87.26 Urine Random Sodium 60 Urine Protein/Creatinine Ratio 6.87 Urine Total Protein > 600.0 H Test 02/09/17 16:22 02/09/17 16:59 02/09/17 17:52 02/09/17 19:05 Bedside Glucose 121 133 122 131 Test 02/09/17 20:10 02/09/17 21:04 02/09/17 22:14 02/09/17 23:10 Bedside Glucose 161 158 137 142 Test 02/10/17 00:00 02/10/17 01:31 02/10/17 02:26 02/10/17 03:31 Bedside Glucose 158 136 117 114 Test 02/10/17 04:25 02/10/17 05:50 02/10/17 05:54 02/10/17 06:00 Bedside Glucose 125 96 White Blood Count 19.4 #H Red Blood Count 3.40 L Hemoglobin 9.4 L Hematocrit 30.2 L Mean Corpuscular Volume 88.8 Mean Corpuscular Hemoglobin 27.6 L Mean Corpuscular Hemoglobin Concent 31.1 L Red Cell Distribution Width 16.6 H Platelet Count 391 Mean Platelet Volume 10.1 Neutrophils % 86.8 H Lymphocytes % 5.6 L Monocytes % 5.5 Eosinophils % 0.4 Basophils % 0.3 Nucleated Red Blood Cells % 0.0 Neutrophils # 16.8 H Lymphocytes # 1.1 Monocytes # 1.1 H Eosinophils # 0.1 Basophils # 0.1 Nucleated Red Blood Cells # 0.0 Sodium Level 140 Potassium Level 4.7 Chloride Level 105 Carbon Dioxide Level 27 Anion Gap 13 Blood Urea Nitrogen 32 H Creatinine 2.09 H Glucose Level 97 Uric Acid 8.0 H Calcium Level 9.1 Creatine Kinase 142 Blood Gas Specimen Source Blood arterial Arterial Blood Date Drawn 02/10/2017 5:50:21 AM Arterial Blood pH (Temp corrected) 7.403 Arterial Blood pCO2 (Temp correct) 39.9 Arterial Blood pO2 (Temp corrected) 71.8 L Arterial Blood HCO3 24.3 Arterial Blood Base Excess -0.3 Arterial Blood Oxygen Saturation 93.7 L Sid Test N/A Arterial Blood Gas Puncture Site Right Brachial Arterial Blood Carboxyhemoglobin 0.3 Arterial Blood Methemoglobin 0.4 Blood Gas A-a O2 Differential 167.5 H Oxyhemoglobin Percent 93.0 Total Hemoglobin 11.6 L Blood Gas Temperature 37.0 Blood Gas Respiration Rate 20.0 Blood Gas Actual Respiration Rate 22 Blood Gas Modality VENT - AC FiO2 40.0 Blood Gas Tidal Volume 500.0 Blood Gas Low PEEP Setting 5.0 Blood Gas Inspiratory Pressure 35.0 Blood Gas Notified Whom KM Blood Gas Notified Time 02/10/2017 5:59:04 AM Test 02/10/17 06:50 02/10/17 08:35 02/10/17 10:20 02/10/17 12:19 Bedside Glucose 124 148 151 132 Medications Medications Current Medications Midazolam HCl (Versed) 50 ml @ 1 mls/hr TITRATE IV Last administered on 05:54; Admin Dose 2 MLS/HR; Start 02/07/17 at 22:30 Ondansetron HCl (Zofran Inj) 4 mg Q6H PRN IV NAUSEA AND/OR VOMITING; Start 02/07 at 22:30 Acetaminophen (Tylenol Liquid) 650 mg Q6H PRN PO PAIN LEVEL 1-3 OR FEVER; Start 02/07/17 at 22:30 Morphine Sulfate (morphine) 2 mg Q4H PRN IV PAIN LEVEL 7-10; Start 02/07/17 at 22:30 Lorazepam (Ativan) 1 mg Q2H PRN IV ANXIETY Last administered on 02/10/17 12:27 ; Admin Dose 1 MG; Start 02/07/17 at 22:30 Famotidine (Pepcid Iv) 20 mg DAILY IV Last administered on 02/10/17 08:35; Admin Dose 20 MG; Start 02/08/17 at 09:00 Heparin Sodium (Porcine) (Heparin (5000 Units/0.5 ml)) 5,000 unit Q12 SC Last administered on 02/10/17 08:34; Admin Dose 5,000 UNIT; Start 02/08/17 at 09:00 Acetaminophen (Tylenol Supp) 650 mg Q4H PRN [place] TEMP > 37C; Start 02/07/17 at 22: 30 Acetaminophen 650 mg 650 mg Q4H PRN PO TEMP > 37C; Start 02/07/17 at 22:30 Cefepime HCl (Maxipime 1gm/50 ml (Pmx)) 50 ml @ 100 mls/hr Q12 IVPB Last administered on 02/10/17 08:33; Admin Dose 100 MLS/HR; Start 02/08/17 at 09:00 Meperidine HCl (Demerol) 12.5 mg Q4H PRN IV POST OPERATIVE SHIVERING; Start 02/08/17 at 02:00 Meperidine HCl (Demerol) 25 mg Q4H PRN IV POST OPERATIVE SHIVERING; Start at 02:00 Eye Lubricant (Akwa Oint) 1 applic Q6 BOTH EYES Last administered on 02/10/17 12:17; Admin Dose 1 APPLIC; Start 02/08/17 at 02:00 Eye Lubricant (Artificial Tears Oph) 2 drop Q6 BOTH EYES Last administered on 12:17; Admin Dose 2 DROP; Start 02/08/17 at 02:00 Diagnostic Test (Pha) (Accu-Chek) 1 ea Q1H XX Last administered on 02/10/17 12 :17; Admin Dose 1 EA; Start 02/08/17 at 02:00 Dextrose (D50w Syringe) 25 ml Q15M PRN IV Till BS 80 mg/dL or above x2; Start 02/08/17 at 02:00 Dextrose 50 ml 50 ml Q15M PRN IV Till BS 80 mg/dL or above x2; Start 02/08/17 at 02:00 Norepinephrine/ Dextrose (Levophed/D5W) 500 ml @ 1.87 mls/hr TITRATE IV ; Start 02/08/17 at 07:00 Hydralazine HCl 10 mg 10 mg Q4H PRN IV PRN SBP>170; Start 02/08/17 at 12:00 Potassium Chloride/Dextrose/ Sod Cl 1,000 ml @ 125 mls/hr Q8H IV Last administered on 02/10/17 05:43; Admin Dose 125 MLS/HR; Start 02/08/17 at 12:30 Vancomycin HCl/ Sodium Chloride (Vancocin/NS) 250 ml @ 83.333 mls/ hr Q36H IVPB Last administered on 02/09/17 16:29; Admin Dose 83.333 MLS/HR; Start at 16:00 Metoprolol Tartrate (Lopressor) 25 mg BID PO ; Start 02/10/17 at 21:00 HAL ALCANTAR Feb 10, 2017 12:52
--- NOTE | 2017-02-10 13:26 | CONS ---
Date/Time of Note Date/Time of Note DATE: 02/10/17 TIME: 13:24 Consult Date/Type/Reason Admit Date/Time Feb 07, 2017 at 22:31 Initial Consult Date 02/08/17 Type of Consultation: neurology Reason for Consultation cardiac arrest Ordering Provider: MIGUEL ANGEL MORGAN Subjective opening her eyes per family, myoclonic jerking noted in both UE more when stimulated EEG done last night discussed with family at bedside likelihood of poor neurologic recovery, they wish to cancel the MRI i advised them the EEG results won't likely change her overall prognosis, they wish to pursue comfort care measures Objective Vital Signs Date Time Temp Pulse Resp B/P Pulse Ox O2 Delivery O2 Flow Rate FiO2 02/10/17 12:35 112 30 100 40 02/10/17 10:00 116/54 Mechanical Ventilator 02/10/17 08:00 99.1 Intake and Output 02/09/17 02/09/17 02/10/17 15:00 23:00 07:00 Intake Total 1160.60 ml 1681 ml 694 ml Output Total 81 ml 1116 ml 1043 ml Balance 1079.60 ml 565 ml -349 ml Exam unresponsive to stimuli absent corneals absent pupillary reflex absent gag myoclonus in both arms subsides intermittently no withdrawal to noxious Results/Medications Result Diagram: 02/10/17 0550 02/10/17 0550 Results 24 hrs Laboratory Tests Test 02/09/17 14:05 02/09/17 14:45 02/09/17 15:23 02/09/17 16:22 Bedside Glucose 130 116 121 Urine Eosinophils % 0.0 Urine Random Creatinine 87.26 Urine Random Sodium 60 Urine Protein/Creatinine Ratio 6.87 Urine Total Protein > 600.0 H Test 02/09/17 16:59 02/09/17 17:52 02/09/17 19:05 02/09/17 20:10 Bedside Glucose 133 122 131 161 Test 02/09/17 21:04 02/09/17 22:14 02/09/17 23:10 02/10/17 00:00 Bedside Glucose 158 137 142 158 Test 02/10/17 01:31 02/10/17 02:26 02/10/17 03:31 02/10/17 04:25 Bedside Glucose 136 117 114 125 Test 02/10/17 05:50 02/10/17 05:54 02/10/17 06:00 02/10/17 06:50 White Blood Count 19.4 #H Red Blood Count 3.40 L Hemoglobin 9.4 L Hematocrit 30.2 L Mean Corpuscular Volume 88.8 Mean Corpuscular Hemoglobin 27.6 L Mean Corpuscular Hemoglobin Concent 31.1 L Red Cell Distribution Width 16.6 H Platelet Count 391 Mean Platelet Volume 10.1 Neutrophils % 86.8 H Lymphocytes % 5.6 L Monocytes % 5.5 Eosinophils % 0.4 Basophils % 0.3 Nucleated Red Blood Cells % 0.0 Neutrophils # 16.8 H Lymphocytes # 1.1 Monocytes # 1.1 H Eosinophils # 0.1 Basophils # 0.1 Nucleated Red Blood Cells # 0.0 Sodium Level 140 Potassium Level 4.7 Chloride Level 105 Carbon Dioxide Level 27 Anion Gap 13 Blood Urea Nitrogen 32 H Creatinine 2.09 H Glucose Level 97 Uric Acid 8.0 H Calcium Level 9.1 Creatine Kinase 142 Bedside Glucose 96 124 Blood Gas Specimen Source Blood arterial Arterial Blood Date Drawn 02/10/2017 5:50:21 AM Arterial Blood pH (Temp corrected) 7.403 Arterial Blood pCO2 (Temp correct) 39.9 Arterial Blood pO2 (Temp corrected) 71.8 L Arterial Blood HCO3 24.3 Arterial Blood Base Excess -0.3 Arterial Blood Oxygen Saturation 93.7 L Sid Test N/A Arterial Blood Gas Puncture Site Right Brachial Arterial Blood Carboxyhemoglobin 0.3 Arterial Blood Methemoglobin 0.4 Blood Gas A-a O2 Differential 167.5 H Oxyhemoglobin Percent 93.0 Total Hemoglobin 11.6 L Blood Gas Temperature 37.0 Blood Gas Respiration Rate 20.0 Blood Gas Actual Respiration Rate 22 Blood Gas Modality VENT - AC FiO2 40.0 Blood Gas Tidal Volume 500.0 Blood Gas Low PEEP Setting 5.0 Blood Gas Inspiratory Pressure 35.0 Blood Gas Notified Whom KM Blood Gas Notified Time 02/10/2017 5:59:04 AM Test 02/10/17 08:35 02/10/17 10:20 02/10/17 12:19 Bedside Glucose 148 151 132 Medications Current Medications Midazolam HCl (Versed) 50 ml @ 1 mls/hr TITRATE IV Last administered on t 05:54; Admin Dose 2 MLS/HR; Start 02/07/17 at 22:30 Ondansetron HCl (Zofran Inj) 4 mg Q6H PRN IV NAUSEA AND/OR VOMITING; Start 02/07 at 22:30 Acetaminophen (Tylenol Liquid) 650 mg Q6H PRN PO PAIN LEVEL 1-3 OR FEVER; Start 02/07/17 at 22:30 Morphine Sulfate (morphine) 2 mg Q4H PRN IV PAIN LEVEL 7-10; Start 02/07/17 at 22:30 Lorazepam (Ativan) 1 mg Q2H PRN IV ANXIETY Last administered on 02/10/17 12:27 ; Admin Dose 1 MG; Start 02/07/17 at 22:30 Famotidine (Pepcid Iv) 20 mg DAILY IV Last administered on 02/10/17 08:35; Admin Dose 20 MG; Start 02/08/17 at 09:00 Heparin Sodium (Porcine) (Heparin (5000 Units/0.5 ml)) 5,000 unit Q12 SC Last administered on 02/10/17 08:34; Admin Dose 5,000 UNIT; Start 02/08/17 at 09:00 Acetaminophen (Tylenol Supp) 650 mg Q4H PRN [place] TEMP > 37C; Start 02/07/17 at 22: 30 Acetaminophen 650 mg 650 mg Q4H PRN PO TEMP > 37C; Start 02/07/17 at 22:30 Cefepime HCl (Maxipime 1gm/50 ml (Pmx)) 50 ml @ 100 mls/hr Q12 IVPB Last administered on 02/10/17 08:33; Admin Dose 100 MLS/HR; Start 02/08/17 at 09:00 Meperidine HCl (Demerol) 12.5 mg Q4H PRN IV POST OPERATIVE SHIVERING; Start 02/08/17 at 02:00 Meperidine HCl (Demerol) 25 mg Q4H PRN IV POST OPERATIVE SHIVERING; Start at 02:00 Eye Lubricant (Akwa Oint) 1 applic Q6 BOTH EYES Last administered on 02/10/17 12:17; Admin Dose 1 APPLIC; Start 02/08/17 at 02:00 Eye Lubricant (Artificial Tears Oph) 2 drop Q6 BOTH EYES Last administered on 12:17; Admin Dose 2 DROP; Start 02/08/17 at 02:00 Diagnostic Test (Pha) (Accu-Chek) 1 ea Q1H XX Last administered on 02/10/17 12 :17; Admin Dose 1 EA; Start 02/08/17 at 02:00 Dextrose (D50w Syringe) 25 ml Q15M PRN IV Till BS 80 mg/dL or above x2; Start 02/08/17 at 02:00 Dextrose 50 ml 50 ml Q15M PRN IV Till BS 80 mg/dL or above x2; Start 02/08/17 at 02:00 Norepinephrine/ Dextrose (Levophed/D5W) 500 ml @ 1.87 mls/hr TITRATE IV ; Start 02/08/17 at 07:00 Hydralazine HCl 10 mg 10 mg Q4H PRN IV PRN SBP>170; Start 02/08/17 at 12:00 Potassium Chloride/Dextrose/ Sod Cl 1,000 ml @ 125 mls/hr Q8H IV Last administered on 02/10/17 05:43; Admin Dose 125 MLS/HR; Start 02/08/17 at 12:30 Vancomycin HCl/ Sodium Chloride (Vancocin/NS) 250 ml @ 83.333 mls/ hr Q36H IVPB Last administered on 02/09/17 16:29; Admin Dose 83.333 MLS/HR; Start at 16:00 Metoprolol Tartrate (Lopressor) 25 mg BID PO ; Start 02/10/17 at 21:00 Assessment/Plan Chief Complaint/Hosp Course 76 yo female with recent admission for pneumonia, with hx of HTN, COPD, SVT, aflutter, DM admitted post cardiac arrest treated with hypothermia protocol. Suspect myoclonic jerks, EEG pending official review today. cancelled MRI, family wishes to pursue comfort measures will follow up again tomorrow to discuss results of testing Problems: JUVENCIO POOLE MD Feb 10, 2017 13:26
[2017-02-10] MEDS ORDERED: LEVETIRACETAM 1000 MG (PMX) 100 ML IVPB SCH (15:00)
--- NOTE | 2017-02-10 17:04 | CONS ---
Date/Time of Note Date/Time of Note DATE: 02/10/17 TIME: 17:00 Consult Date/Type/Reason Admit Date/Time Feb 07, 2017 at 22:31 Initial Consult Date 02/08/17 Type of Consultation: Pulm/CCM Ordering Provider: MIGUEL ANGEL MORGAN Subjective Unresponsive and flaccid on the vent. Breathing above the set rate. Objective Vital Signs Date Time Temp Pulse Resp B/P Pulse Ox O2 Delivery O2 Flow Rate FiO2 02/10/17 16:00 120 02/10/17 16:00 21 116/54 100 Mechanical Ventilator 02/10/17 15:45 40 02/10/17 12:00 99.8 Intake and Output 02/09/17 02/09/17 02/10/17 15:00 23:00 07:00 Intake Total 1160.60 ml 1681 ml 697 ml Output Total 81 ml 1116 ml 1043 ml Balance 1079.60 ml 565 ml -346 ml Exam HEENT: Neck supple; no JVD; no LAD: No GAG; + corneals; ET in place CVS: RRR, S1 and S2 CHEST: Clear ABD: Soft, NT, + BS EXT: No c/c/e Results/Medications Result Diagram: 02/10/17 0550 02/10/17 0550 Results 24 hrs Laboratory Tests Test 02/09/17 17:52 02/09/17 19:05 02/09/17 20:10 02/09/17 21:04 Bedside Glucose 122 131 161 158 Test 02/09/17 22:14 02/09/17 23:10 02/10/17 00:00 02/10/17 01:31 Bedside Glucose 137 142 158 136 Test 02/10/17 02:26 02/10/17 03:31 02/10/17 04:25 02/10/17 05:50 Bedside Glucose 117 114 125 White Blood Count 19.4 #H Red Blood Count 3.40 L Hemoglobin 9.4 L Hematocrit 30.2 L Mean Corpuscular Volume 88.8 Mean Corpuscular Hemoglobin 27.6 L Mean Corpuscular Hemoglobin Concent 31.1 L Red Cell Distribution Width 16.6 H Platelet Count 391 Mean Platelet Volume 10.1 Neutrophils % 86.8 H Lymphocytes % 5.6 L Monocytes % 5.5 Eosinophils % 0.4 Basophils % 0.3 Nucleated Red Blood Cells % 0.0 Neutrophils # 16.8 H Lymphocytes # 1.1 Monocytes # 1.1 H Eosinophils # 0.1 Basophils # 0.1 Nucleated Red Blood Cells # 0.0 Sodium Level 140 Potassium Level 4.7 Chloride Level 105 Carbon Dioxide Level 27 Anion Gap 13 Blood Urea Nitrogen 32 H Creatinine 2.09 H Glucose Level 97 Uric Acid 8.0 H Calcium Level 9.1 Creatine Kinase 142 Test 02/10/17 05:54 02/10/17 06:00 02/10/17 06:50 02/10/17 08:35 Bedside Glucose 96 124 148 Blood Gas Specimen Source Blood arterial Arterial Blood Date Drawn 02/10/2017 5:50:21 AM Arterial Blood pH (Temp corrected) 7.403 Arterial Blood pCO2 (Temp correct) 39.9 Arterial Blood pO2 (Temp corrected) 71.8 L Arterial Blood HCO3 24.3 Arterial Blood Base Excess -0.3 Arterial Blood Oxygen Saturation 93.7 L Sid Test N/A Arterial Blood Gas Puncture Site Right Brachial Arterial Blood Carboxyhemoglobin 0.3 Arterial Blood Methemoglobin 0.4 Blood Gas A-a O2 Differential 167.5 H Oxyhemoglobin Percent 93.0 Total Hemoglobin 11.6 L Blood Gas Temperature 37.0 Blood Gas Respiration Rate 20.0 Blood Gas Actual Respiration Rate 22 Blood Gas Modality VENT - AC FiO2 40.0 Blood Gas Tidal Volume 500.0 Blood Gas Low PEEP Setting 5.0 Blood Gas Inspiratory Pressure 35.0 Blood Gas Notified Whom KM Blood Gas Notified Time 02/10/2017 5:59:04 AM Test 02/10/17 10:20 02/10/17 12:19 02/10/17 13:53 02/10/17 15:46 Bedside Glucose 151 132 120 116 Medications Current Medications Midazolam HCl (Versed) 50 ml @ 1 mls/hr TITRATE IV Last administered on t 05:54; Admin Dose 2 MLS/HR; Start 02/07/17 at 22:30 Ondansetron HCl (Zofran Inj) 4 mg Q6H PRN IV NAUSEA AND/OR VOMITING; Start 02/07 at 22:30 Acetaminophen (Tylenol Liquid) 650 mg Q6H PRN PO PAIN LEVEL 1-3 OR FEVER; Start 02/07/17 at 22:30 Morphine Sulfate (morphine) 2 mg Q4H PRN IV PAIN LEVEL 7-10; Start 02/07/17 at 22:30 Lorazepam (Ativan) 1 mg Q2H PRN IV ANXIETY Last administered on 02/10/17 13:58 ; Admin Dose 1 MG; Start 02/07/17 at 22:30 Famotidine (Pepcid Iv) 20 mg DAILY IV Last administered on 02/10/17 08:35; Admin Dose 20 MG; Start 02/08/17 at 09:00 Heparin Sodium (Porcine) (Heparin (5000 Units/0.5 ml)) 5,000 unit Q12 SC Last administered on 02/10/17 08:34; Admin Dose 5,000 UNIT; Start 02/08/17 at 09:00 Acetaminophen (Tylenol Supp) 650 mg Q4H PRN [place] TEMP > 37C; Start 02/07/17 at 22: 30 Acetaminophen (Tylenol Liquid) 650 mg Q4H PRN PO TEMP > 37C; Start 02/07/17 at 22:30 Meperidine HCl (Demerol) 12.5 mg Q4H PRN IV POST OPERATIVE SHIVERING; Start 02/08/17 at 02:00 Meperidine HCl (Demerol) 25 mg Q4H PRN IV POST OPERATIVE SHIVERING; Start at 02:00 Eye Lubricant (Akwa Oint) 1 applic Q6 BOTH EYES Last administered on 02/10/17 12:17; Admin Dose 1 APPLIC; Start 02/08/17 at 02:00 Eye Lubricant (Artificial Tears Oph) 2 drop Q6 BOTH EYES Last administered on 12:17; Admin Dose 2 DROP; Start 02/08/17 at 02:00 Diagnostic Test (Pha) (Accu-Chek) 1 ea Q1H XX Last administered on 02/10/17 15 :45; Admin Dose 1 EA; Start 02/08/17 at 02:00 Dextrose (D50w Syringe) 25 ml Q15M PRN IV Till BS 80 mg/dL or above x2; Start 02/08/17 at 02:00 Dextrose 50 ml 50 ml Q15M PRN IV Till BS 80 mg/dL or above x2; Start 02/08/17 at 02:00 Norepinephrine/ Dextrose (Levophed/D5W) 500 ml @ 1.87 mls/hr TITRATE IV ; Start 02/08/17 at 07:00 Hydralazine HCl 10 mg 10 mg Q4H PRN IV PRN SBP>170; Start 02/08/17 at 12:00 Potassium Chloride/Dextrose/ Sod Cl 1,000 ml @ 125 mls/hr Q8H IV Last administered on 02/10/17 05:43; Admin Dose 125 MLS/HR; Start 02/08/17 at 12:30 Vancomycin HCl/ Sodium Chloride (Vancocin/NS) 250 ml @ 83.333 mls/ hr Q36H IVPB Last administered on 02/09/17 16:29; Admin Dose 83.333 MLS/HR; Start at 16:00 Metoprolol Tartrate 25 mg 25 mg BID PO ; Start 02/10/17 at 21:00 Levetiracetam (Keppra 1,000mg/ 100ml (Pmx)) 100 ml @ 400 mls/hr Q12 IVPB Last administered on 02/10/17 15:45; Admin Dose 400 MLS/HR; Start 02/10/17 at 15:00 Miscellaneous Information VANCOMYCIN TROUGH AT 0300 ONCE ONCE XX ; Start 02/11/17 at 03:00; Stop 02/11/17 at 03:01 Cefepime HCl (Maxipime 1gm/50 ml (Pmx)) 50 ml @ 100 mls/hr Q24H IVPB ; Start at 09:00 Assessment/Plan Additional Assessment/Plan IMP: 1. s/p Cardiac arrest 2. Anoxic Encephalopathy 3. VDRF 4. COPD 5. Aflutter/fib RECS: 1. Spoke with family at length 2. Agree with plans to transition to comfort care and extubate terminally 35 min cc time GUEVARA STEINER MD Feb 10, 2017 17:04
[2017-02-10] MEDS ORDERED: SOD CHLORIDE 0.9% IVPB ONE ×2 (20:30→21:00)
[2017-02-10] MEDS ORDERED: FOSPHENYTOIN IVPB ONE ×2 (20:30→21:00)
[2017-02-10] MEDS: ACETAMINOPHEN 650MG/20.3ML CUP PO PRN (20:50)
[2017-02-10] MEDS: METOPROLOL 25 MG TAB PO SCH (20:51)
[2017-02-10] MEDS: LEVETIRACETAM 1500 MG (PMX) 100 ML IVPB SCH (21:39)
[2017-02-10] MEDS: FOSPHENYTOIN (PE) 100 MG in SOD CHLORIDE 0.9% 50 ML IVPB SCH (23:46)
[2017-02-11] VITALS (18 sets, daily range): BP systolic 83–152; BP diastolic 39–118; PULSE 82–99; RESP 19–32
[2017-02-11] MEDS: ACCU-CHEK XX SCH ×9 (00:08→10:00)
[2017-02-11] MEDS: MIDAZOLAM (DRIP) 50 mg/50 mL 50 ML IV SCH (02:10)
--- NOTE | 2017-02-11 03:28 | CONS ---
DATE OF ADMISSION: 02/07/2017 DATE OF CONSULTATION: 02/10/2017 PALLIATIVE CARE CONSULTATION TIME: 1918 hours HISTORY OF PRESENT ILLNESS: This is a palliative care consultation. This is a 76-year-old female w ho is essentially in the intensive care unit at this time status post cardiopulmonary arrest, witnes sed at her home. The patient had ACLS and EMS was in the process of contacting resuscitation, then patient had spontaneous return of circulation. She was transferred to [facility]. Hypothermia protocol was initiated at that time. She was transferred to the intensive care unit. Patient was down for a prolonged period of time. It is not clear in the documentation as to how long she was, but presumably for greater than 10 minutes prior to CPR beginning, and patient was found down pulseless by paramedics. She was seen in the emergency room here on 02/07/2017 at 2131 hours, stabilized, was admitted to the intensive care unit by Dr. Taylor at 2300 hours. Hypothermia p rotocol was discontinued today. She has been seen by pulmonary, neurology, cardiology consultations and nephrology. I reviewed her medical records and the reports from different subspecialty consult ants in detail. Family members are not available at this time and I have had an extensive discussio n with patient's nurse. Family members have had an extensive conversation with Dr. Bocanegra and Dr. Aris olmos, and at that time had a lengthy conversation with family members, and family members were m charity aware of the fact that her prognosis was extremely poor. MRI which was ordered was canceled. E EG was done last night, but results are not available in patient's medical records and family member s were once again told that likelihood of full recovery was extremely poor. According to medical re cords, family members have decided to pursue only comfort measures. According to medical records, mali colvin has been unresponsive to stimuli, she has had absent corneals, absent pupillary light reflex, absent gag, myoclonic activity, both upper extremities. I am asked to assist with patient's ongoin g level of care. MEDICATIONS: Please refer to reconciliation sheets. ALLERGIES: NO KNOWN DRUG ALLERGIES. MAJOR MEDICAL PROBLEMS IN THE PAST: Please refer to extensive history and physical done by Dr. Lina hatfield; however, we have an incomplete database. We know this lady has hypertension, chronic obstructive pulmonary disease, atrial flutter, previous history of tracheostomy, diabetes. This information is taken from patient's medical records. Once again, no family members are available at this time. I t is known also that patient signed out against medical advice from [facility] 1 day prio r to this admission. SOCIAL HISTORY: Unknown. FAMILY HISTORY: Unknown. REVIEW OF SYSTEMS: Cannot be obtained. PHYSICAL EXAMINATION: GENERAL: Shows an intubated female who is unresponsive to any verbal or tactile stimulation. She i s normocephalic and atraumatic, anicteric, acyanotic on examination. VITAL SIGNS: Blood pressure 113/54, pulse 124 and regular, respirations of 23, temperature 99.8 deg ines. HEENT: She is normocephalic and atraumatic, anicteric, acyanotic on examination. CHEST: Shows distant breath sounds throughout both lung arredondo. CORONARY: S1, S2, without S3, S4, murmur, gallop, rub. Normal rate, normal rhythm. ABDOMEN: Benign and scaphoid. No organomegaly, masses, tenderness, rebound or peritoneal signs. EXTREMITIES: Without clubbing, cyanosis or edema. NEUROLOGICAL: She has no doll's eyes, pupillary light reflex or corneals. She does not respond to any verbal or tactile stimulation. She has no purposeful movement. ASSESSMENT AND PLAN: In reviewing medical records, diagnosis as appears above, patient is status po st cardiopulmonary arrest, status post hypothermia protocol, vent dependent respiratory failure, mil d to moderate obesity, chronic obstructive pulmonary disease, now in the intensive care unit as she has shown no significant signs of neurological recovery, has no oculocephalics, but is having myoclo lolly jerks. There are no other family members available at this time, but I will seek out to speak t o some family members tonight. Followup note will be done after I have introduced myself to family members and explored all of the palliative care issues prior to pursuing comfort measures, making avila re that they understand the complexity of her medical problems and answering any of their questions, addressing their concerns, communication issues, spiritual, cultural issues with family members, ex ploring their hopes, understanding quality of life that they would perceive would be acceptable for patient. There are no pain and symptom management issues that should be addressed. I will address psychosocial, spiritual and psychological issues with family members, any ethical, legal and I will address the surrogate issue also and who is the decision maker on behalf of patient. Dictated By: NORMAN SULLIVAN MD LP/SWAPNA Conf#: [id number] DID#: [id number] CC: CASSANDRA TAYLOR MD;*EndCC*
[2017-02-11] MEDS: VANCOMYCIN 1.25 GM in SOD CHLORIDE 0.9% 250 ML IVPB SCH (04:56)
[2017-02-11] MEDS: D5W-0.45 NACL + KCL 20 MEQ 1,000 ML IV SCH (05:06)
[2017-02-11 06:06] LABS: ADD SCAN DIFF NO
[2017-02-11] MEDS: OCULAR LUBRICANT 3.5 GM OPH OINT BOTH EYES SCH (06:08)
[2017-02-11] MEDS: FOSPHENYTOIN (PE) 100 MG in SOD CHLORIDE 0.9% 50 ML IVPB SCH (06:08)
[2017-02-11] MEDS: ARTIFICIAL TEARS 15 ML OPH BOTH EYES SCH (06:08)
[2017-02-11 06:13] LABS: BASOPHILS % 0.3 % (0.0-2.0); EOSINOPHILS # 0.1 10^3/ul (0.0-0.5); EOSINOPHILS % 0.6 % (0.0-7.0); HEMATOCRIT 27.3 % (37.0-47.0); HEMOGLOBIN 8.6 g/dl (12.0-16.0); LYMPHOCYTES # 1.9 10^3/ul (0.8-2.9); LYMPHOCYTES % 13.2 % (15.0-51.0); MEAN CORPUSCULAR HEMOGLOBIN 28.3 pg (29.0-33.0); MEAN CORPUSCULAR HGB CONC 31.5 g/dl (32.0-37.0); MEAN CORPUSCULAR VOLUME 89.8 fl (82.0-101.0); MEAN PLATELET VOLUME 9.8 fl (7.4-10.4); MONOCYTE # 1.2 10^3/ul (0.3-0.9); MONOCYTES % 8.4 % (0.0-11.0); NEUTROPHIL # 10.6 10^3/ul (1.6-7.5); NEUTROPHILS % 74.5 % (39.0-77.0); PLATELET COUNT 340 10^3/UL (140-415); RED BLOOD COUNT 3.04 10^6/ul (4.20-5.40); WHITE BLOOD COUNT 14.2 10^3/ul (4.8-10.8)
[2017-02-11 06:36] LABS: ALBUMIN 3.3 g/dl (3.3-4.9); ALBUMIN/GLOBULIN RATIO 1.43; BILIRUBIN,INDIRECT 0.1 mg/dl (0-1.1); BILIRUBIN,TOTAL 0.1 mg/dl (0.2-1.3); CALCIUM 8.5 mg/dl (8.4-10.2); CREATININE 2.32 mg/dl (0.44-1.00); POTASSIUM 5.3 mmol/L (3.5-5.1); TOTAL PROTEIN 5.6 g/dl (6.1-8.1)
[2017-02-11] MEDS: ACETAMINOPHEN 650MG/20.3ML CUP PO PRN (06:37)
[2017-02-11 07:09] LABS: MAGNESIUM 1.6 mg/dl (1.7-2.5)
[2017-02-11] MEDS: FAMOTIDINE 20 MG INJ IV SCH (09:00)
[2017-02-11] MEDS ORDERED: CEFEPIME 1GM/50 ML (PMX) 50 ML IVPB SCH (09:00)
[2017-02-11] MEDS: METOPROLOL 25 MG TAB PO SCH (09:00)
[2017-02-11] MEDS: HEPARIN 5,000 UNIT/0.5 ML VIAL SC SCH (09:21)
[2017-02-11] MEDS: LEVETIRACETAM 1500 MG (PMX) 100 ML IVPB SCH (09:34)
--- NOTE | 2017-02-11 10:11 | CONS ---
Date/Time of Note Date/Time of Note DATE: 02/11/17 TIME: 10:07 Assessment/Plan Assessment/Plan Chief Complaint/Hosp Course IMPRESSION: 1. Status post cardiopulmonary arrest. 2. Abnormal electrocardiogram-negative troponin x 3 3. Hypertension-today borderline Hotn 4. Respiratory failure. 5. History of atrial fibrillation, atrial flutter. 6. Possible congestive heart failure, pneumonia by chest x-ray. 7. Encephalopathy. 8. Renal failure. 9. Hypernatremia-improved 10. Anemia. 11. Leukocytosis. 12. Urinary tract infection. 14. Seizure activity-? of hand Recc: -Tele -rewarming -BB held due to now labile low BP -continue abx's and f/u cx data -Follow MS closely -Neuro following -palliative care following Problems: Consultation Date/Type/Reason Admit Date/Time Feb 07, 2017 at 22:31 Initial Consult Date 02/08/17 Type of Consultation: cardiology Reason for Consultation CP arrest Referring Provider: MIGUEL ANGEL MORGAN Exam/Review of Systems Vital Signs Vitals Vital Signs Date Time Temp Pulse Resp B/P Pulse Ox O2 Delivery O2 Flow Rate FiO2 02/11/17 09:20 87 23 100 40 02/11/17 08:00 100.1 95/41 Mechanical Ventilator Intake and Output 02/10/17 02/10/17 02/11/17 15:00 23:00 07:00 Intake Total 1019 ml 967 ml 1317.666 ml Output Total 917 ml 641 ml 380 ml Balance 102 ml 326 ml 937.666 ml Exam Review of Systems: CONSTITUTIONAL: No fevers, chills. PULMONARY: intubated CARDIOVASCULAR: No chest pain/palpitations GASTROINTESTINAL: No nausea/vomiting. GENITOURINARY: No hematuria/dysuria. MUSCULOSKELETAL: No myagias/arthalgias. PSYCHIATRIC: The patient denies depression. NEUROLOGIC: No weakness Constitutional: other (Encephalopathy) Psych: no complaints ENMT: intubated Neck: jvd, supple Respiratory: other (upper airway rhochi) Cardiovascular: regular rate and rhythm Gastrointestinal: non-tender, soft Extremities: other (No focal deficits) Neurological: other (Encephalopathic) Results Result Diagram: 02/11/17 0447 02/11/17 0447 Results 24 hrs Laboratory Tests Test 02/10/17 10:20 02/10/17 12:19 02/10/17 13:53 02/10/17 15:46 Bedside Glucose 151 132 120 116 Test 02/10/17 18:35 02/10/17 20:00 02/10/17 21:01 02/10/17 22:33 Bedside Glucose 117 102 121 156 Test 02/10/17 23:45 02/11/17 02:05 02/11/17 03:05 02/11/17 04:04 Bedside Glucose 152 131 112 Vancomycin Level Trough 16.0 Test 02/11/17 04:47 02/11/17 04:51 02/11/17 05:00 02/11/17 06:11 White Blood Count 14.2 #H Red Blood Count 3.04 L Hemoglobin 8.6 L Hematocrit 27.3 L Mean Corpuscular Volume 89.8 Mean Corpuscular Hemoglobin 28.3 L Mean Corpuscular Hemoglobin Concent 31.5 L Red Cell Distribution Width 17.0 H Platelet Count 340 Mean Platelet Volume 9.8 Neutrophils % 74.5 Lymphocytes % 13.2 L Monocytes % 8.4 Eosinophils % 0.6 Basophils % 0.3 Nucleated Red Blood Cells % 0.0 Neutrophils # 10.6 H Lymphocytes # 1.9 Monocytes # 1.2 H Eosinophils # 0.1 Basophils # 0.0 Nucleated Red Blood Cells # 0.0 Sodium Level 138 Potassium Level 5.3 H Chloride Level 106 Carbon Dioxide Level 25 Anion Gap 12 Blood Urea Nitrogen 31 H Creatinine 2.32 H Glucose Level 119 Calcium Level 8.5 Total Bilirubin 0.1 L Direct Bilirubin 0.00 Indirect Bilirubin 0.1 Aspartate Amino Transf (AST/SGOT) 90 H Alanine Aminotransferase (ALT/SGPT) 51 Alkaline Phosphatase 64 Total Protein 5.6 L Albumin 3.3 Globulin 2.30 Albumin/Globulin Ratio 1.43 Bedside Glucose 111 106 Phosphorus Level 5.0 H Magnesium Level 1.6 L Test 02/11/17 06:40 02/11/17 09:15 Bedside Glucose 115 121 Medications Medications Current Medications Midazolam HCl (Versed) 50 ml @ 1 mls/hr TITRATE IV Last administered on t 02:10; Admin Dose 4 MLS/HR; Start 02/07/17 at 22:30 Ondansetron HCl (Zofran Inj) 4 mg Q6H PRN IV NAUSEA AND/OR VOMITING; Start 02/07 at 22:30 Acetaminophen (Tylenol Liquid) 650 mg Q6H PRN PO PAIN LEVEL 1-3 OR FEVER; Start 02/07/17 at 22:30 Morphine Sulfate (morphine) 2 mg Q4H PRN IV PAIN LEVEL 7-10; Start 02/07/17 at 22:30 Lorazepam (Ativan) 1 mg Q2H PRN IV ANXIETY Last administered on 02/10/17 20:55 ; Admin Dose 1 MG; Start 02/07/17 at 22:30 Famotidine (Pepcid Iv) 20 mg DAILY IV Last administered on 02/10/17 08:35; Admin Dose 20 MG; Start 02/08/17 at 09:00 Heparin Sodium (Porcine) (Heparin (5000 Units/0.5 ml)) 5,000 unit Q12 SC Last administered on 02/11/17 09:21; Admin Dose 5,000 UNIT; Start 02/08/17 at 09:00 Acetaminophen (Tylenol Supp) 650 mg Q4H PRN HI TEMP > 37C; Start 02/07/17 at 22: 30 Acetaminophen (Tylenol Liquid) 650 mg Q4H PRN PO TEMP > 37C Last administered on 02/11/17 06:37; Admin Dose 650 MG; Start 02/07/17 at 22:30 Meperidine HCl (Demerol) 12.5 mg Q4H PRN IV POST OPERATIVE SHIVERING; Start 02/08/17 at 02:00 Meperidine HCl (Demerol) 25 mg Q4H PRN IV POST OPERATIVE SHIVERING; Start at 02:00 Eye Lubricant (Akwa Oint) 1 applic Q6 BOTH EYES Last administered on 02/11/17 06:08; Admin Dose 1 APPLIC; Start 02/08/17 at 02:00 Eye Lubricant (Artificial Tears Oph) 2 drop Q6 BOTH EYES Last administered on 06:08; Admin Dose 2 DROP; Start 02/08/17 at 02:00 Diagnostic Test (Pha) (Accu-Chek) 1 ea Q1H XX Last administered on 02/11/17 09 :36; Admin Dose 1 EA; Start 02/08/17 at 02:00 Dextrose (D50w Syringe) 25 ml Q15M PRN IV Till BS 80 mg/dL or above x2; Start 02/08/17 at 02:00 Dextrose 50 ml 50 ml Q15M PRN IV Till BS 80 mg/dL or above x2; Start 02/08/17 at 02:00 Norepinephrine/ Dextrose (Levophed/D5W) 500 ml @ 1.87 mls/hr TITRATE IV ; Start 02/08/17 at 07:00 Hydralazine HCl 10 mg 10 mg Q4H PRN IV PRN SBP>170; Start 02/08/17 at 12:00 Potassium Chloride/Dextrose/ Sod Cl (D5-1/2ns + KCl 20 Meq) 1,000 ml @ 125 mls/ hr Q8H IV Last administered on 02/11/17 05:06; Admin Dose 125 MLS/HR; Start at 12:30 Metoprolol Tartrate 25 mg 25 mg BID PO Last administered on 02/10/17 20:51; Admin Dose 25 MG; Start 02/10/17 at 21:00 Cefepime HCl 50 ml @ 100 mls/hr Q24H IVPB Last administered on 02/11/17 09:34 ; Admin Dose 100 MLS/HR; Start 02/11/17 at 09:00 Levetiracetam 100 ml @ 400 mls/hr Q12 IVPB Last administered on 02/11/17 09: 34; Admin Dose 400 MLS/HR; Start 02/10/17 at 21:00 Fosphenytoin Sodium 100 mg/ Sodium Chloride 52 ml @ 210.667 mls/hr Q8 IVPB Last administered on 02/11/17 06:08; Admin Dose 210.667 MLS/HR; Start 02/10/17 at 22:00 Vancomycin HCl/ Sodium Chloride (Vancocin/NS) 250 ml @ 83.333 mls/ hr Q48H IVPB ; Start 02/13/17 at 06:00 LIONEL NEGRON Feb 11, 2017 10:11
--- NOTE | 2017-02-11 11:29 | PN ---
Date/Time of Note Date/Time of Note DATE: 02/11/17 TIME: 11:22 Assessment/Plan VTE Prophylaxis VTE Prophylaxis Intervention: SCD's Lines/Catheters IV Catheter Type (from [facility]): Central Line Central line still needed: Yes Urinary Cath still in place: Yes Reason Cath still needed: urinary retention Assessment/Plan Chief Complaint/Hosp Course ASSESSMENT AND PLAN: 76-year-old lady who left against medical advice earlier yesterday from [facility] who comes in with acute respiratory failure secondary to severe bilateral pneumonia, cardiac arrest, status post cardiopulmonary resuscitation, s/p hypothermia protocol, now awaiting comfort measures and possible terminal extubation. 1. Cardiac arrest - status post return of spontaneous circulation, s/p hypothermia protocol. Patient is intubated. - f/u EEG results (pending), and neurology consult, pulmonary consult rec's - Continue broad spectrum antibiotics for now - consider anti-sz meds 2. Respiratory distress. Again, she has bilateral pneumonia. She has cardiac arrest, intubated - again, follow pulmonary recommendations. - Continue mechanical ventilation, broad spectrum antibiotics. - Follow up final culture results. - Tylenol p.r.n. for pain and fevers 3. History of type 2 diabetes, hyperglycemia - A1c - 7.8 - insulin 4. History of chronic obstructive pulmonary disease, see #2. 5. History of atrial flutter and supraventricular tachycardia. - monitor HR,f/u cardiology consult rec's 6. Sepsis - again secondary to what looks like healthcare-associated pneumonia. - See #1 and #2 as far as broad spectrum antibiotics, IV fluids. 7. History of hypertension. Again, monitor for now. 8. Gastrointestinal prophylaxis. H2 sonja. 9. Deep venous thrombosis prophylaxis - sequential compression devices. Dispo: poor prognosis, being followed by Neuro team - pt has currently absent brainstem reflexes,. EEG results pending. Appreciate palliative team input. After long discussion with family yesterday with primary team, nurse, and palliative team, they want to pursue comfort measures. Antiseizure medications in place as well, now sz's are better controlled. Critical care time spent today = 40 min. Problems: Subjective 24 Hr Interval Summary Free Text/Dictation Seen by Neuro and palliative teams yesterday. Pt with + seizures yesterday, started on anti-sz meds. Exam/Review of Systems Vital Signs Vitals Vital Signs Date Time Temp Pulse Resp B/P Pulse Ox O2 Delivery O2 Flow Rate FiO2 02/11/17 09:20 87 23 100 40 02/11/17 08:00 100.1 95/41 Mechanical Ventilator Intake and Output 02/10/17 02/10/17 02/11/17 15:00 23:00 07:00 Intake Total 1019 ml 967 ml 1317.666 ml Output Total 917 ml 641 ml 380 ml Balance 102 ml 326 ml 937.666 ml Exam GENERAL: The patient lying in bed, intubated HEENT: Unable to fully assess. NECK: Supple, no thyromegaly. LUNGS: Distant breath sounds bilaterally. CARDIOVASCULAR: S1, S2 heard. No rubs or gallops. ABDOMEN: Soft, nontender, nondistended. Normal bowel sounds. MUSCULOSKELETAL: No lower extremity edema bilaterally. NEUROLOGIC: Unable to fully assess as the patient is intubated Results Result Diagram: 02/11/17 0447 02/11/17 0447 Results 24 hrs Laboratory Tests Test 02/10/17 12:19 02/10/17 13:53 02/10/17 15:46 02/10/17 18:35 Bedside Glucose 132 120 116 117 Test 02/10/17 20:00 02/10/17 21:01 02/10/17 22:33 02/10/17 23:45 Bedside Glucose 102 121 156 152 Test 02/11/17 02:05 02/11/17 03:05 02/11/17 04:04 02/11/17 04:47 Bedside Glucose 131 112 Vancomycin Level Trough 16.0 White Blood Count 14.2 #H Red Blood Count 3.04 L Hemoglobin 8.6 L Hematocrit 27.3 L Mean Corpuscular Volume 89.8 Mean Corpuscular Hemoglobin 28.3 L Mean Corpuscular Hemoglobin Concent 31.5 L Red Cell Distribution Width 17.0 H Platelet Count 340 Mean Platelet Volume 9.8 Neutrophils % 74.5 Lymphocytes % 13.2 L Monocytes % 8.4 Eosinophils % 0.6 Basophils % 0.3 Nucleated Red Blood Cells % 0.0 Neutrophils # 10.6 H Lymphocytes # 1.9 Monocytes # 1.2 H Eosinophils # 0.1 Basophils # 0.0 Nucleated Red Blood Cells # 0.0 Sodium Level 138 Potassium Level 5.3 H Chloride Level 106 Carbon Dioxide Level 25 Anion Gap 12 Blood Urea Nitrogen 31 H Creatinine 2.32 H Glucose Level 119 Calcium Level 8.5 Total Bilirubin 0.1 L Direct Bilirubin 0.00 Indirect Bilirubin 0.1 Aspartate Amino Transf (AST/SGOT) 90 H Alanine Aminotransferase (ALT/SGPT) 51 Alkaline Phosphatase 64 Total Protein 5.6 L Albumin 3.3 Globulin 2.30 Albumin/Globulin Ratio 1.43 Test 02/11/17 04:51 02/11/17 05:00 02/11/17 06:11 02/11/17 06:40 Bedside Glucose 111 106 115 Phosphorus Level 5.0 H Magnesium Level 1.6 L Test 02/11/17 09:15 Bedside Glucose 121 Medications Medications Current Medications Midazolam HCl (Versed) 50 ml @ 1 mls/hr TITRATE IV Last administered on 02:10; Admin Dose 4 MLS/HR; Start 02/07/17 at 22:30 Ondansetron HCl (Zofran Inj) 4 mg Q6H PRN IV NAUSEA AND/OR VOMITING; Start 02/07 at 22:30 Acetaminophen (Tylenol Liquid) 650 mg Q6H PRN PO PAIN LEVEL 1-3 OR FEVER; Start 02/07/17 at 22:30 Morphine Sulfate (morphine) 2 mg Q4H PRN IV PAIN LEVEL 7-10; Start 02/07/17 at 22:30 Lorazepam (Ativan) 1 mg Q2H PRN IV ANXIETY Last administered on 02/10/17 20:55 ; Admin Dose 1 MG; Start 02/07/17 at 22:30 Famotidine (Pepcid Iv) 20 mg DAILY IV Last administered on 02/11/17 09:00; Admin Dose 20 MG; Start 02/08/17 at 09:00 Heparin Sodium (Porcine) (Heparin (5000 Units/0.5 ml)) 5,000 unit Q12 SC Last administered on 02/11/17 09:21; Admin Dose 5,000 UNIT; Start 02/08/17 at 09:00 Acetaminophen (Tylenol Supp) 650 mg Q4H PRN SC TEMP > 37C; Start 02/07/17 at 22: 30 Acetaminophen (Tylenol Liquid) 650 mg Q4H PRN PO TEMP > 37C Last administered on 02/11/17 06:37; Admin Dose 650 MG; Start 02/07/17 at 22:30 Meperidine HCl (Demerol) 12.5 mg Q4H PRN IV POST OPERATIVE SHIVERING; Start 02/08/17 at 02:00 Meperidine HCl (Demerol) 25 mg Q4H PRN IV POST OPERATIVE SHIVERING; Start at 02:00 Eye Lubricant (Akwa Oint) 1 applic Q6 BOTH EYES Last administered on 02/11/17 06:08; Admin Dose 1 APPLIC; Start 02/08/17 at 02:00 Eye Lubricant (Artificial Tears Oph) 2 drop Q6 BOTH EYES Last administered on 06:08; Admin Dose 2 DROP; Start 02/08/17 at 02:00 Diagnostic Test (Pha) (Accu-Chek) 1 ea Q1H XX Last administered on 02/11/17 09 :36; Admin Dose 1 EA; Start 02/08/17 at 02:00 Dextrose (D50w Syringe) 25 ml Q15M PRN IV Till BS 80 mg/dL or above x2; Start 02/08/17 at 02:00 Dextrose 50 ml 50 ml Q15M PRN IV Till BS 80 mg/dL or above x2; Start 02/08/17 at 02:00 Norepinephrine/ Dextrose (Levophed/D5W) 500 ml @ 1.87 mls/hr TITRATE IV ; Start 02/08/17 at 07:00 Hydralazine HCl 10 mg 10 mg Q4H PRN IV PRN SBP>170; Start 02/08/17 at 12:00 Potassium Chloride/Dextrose/ Sod Cl (D5-1/2ns + KCl 20 Meq) 1,000 ml @ 125 mls/ hr Q8H IV Last administered on 02/11/17 05:06; Admin Dose 125 MLS/HR; Start at 12:30 Metoprolol Tartrate 25 mg 25 mg BID PO Last administered on 02/10/17 20:51; Admin Dose 25 MG; Start 02/10/17 at 21:00 Cefepime HCl 50 ml @ 100 mls/hr Q24H IVPB Last administered on 02/11/17 09:34 ; Admin Dose 100 MLS/HR; Start 02/11/17 at 09:00 Levetiracetam 100 ml @ 400 mls/hr Q12 IVPB Last administered on 02/11/17 09: 34; Admin Dose 400 MLS/HR; Start 02/10/17 at 21:00 Fosphenytoin Sodium 100 mg/ Sodium Chloride 52 ml @ 210.667 mls/hr Q8 IVPB Last administered on 02/11/17 06:08; Admin Dose 210.667 MLS/HR; Start 02/10/17 at 22:00 Vancomycin HCl/ Sodium Chloride (Vancocin/NS) 250 ml @ 83.333 mls/ hr Q48H IVPB ; Start 02/13/17 at 06:00 MIGUEL ANGEL MORGAN Feb 11, 2017 11:29
[2017-02-11] MEDS ORDERED: LORAZEPAM 2 MG INJ IV PRN (11:30)
[2017-02-11] MEDS ORDERED: morphine (DRIP) 100 MG/100 ML 100 ML IV SCH (11:30)
[2017-02-11] MEDS ORDERED: D5W-0.45 NACL + KCL 20 MEQ 1,000 ML IV SCH (12:00)
--- NOTE | 2017-02-11 12:57 | DES ---
Date/Time of Note Date/Time of Note DATE: 02/11/17 TIME: 12:49 Discharge/ Summary Admission/Discharge Info Admit Date/Time Feb 07, 2017 at 22:31 Discharge Date/Time Final Diagnosis 1. Cardiac arrest - status post return of spontaneous circulation, s/p hypothermia protocol. 2. Respiratory distress- bilateral pneumonia + cardiac arre 3. History of type 2 diabetes, hyperglycemia - A1c - 7.8 4. History of chronic obstructive pulmonary diseas 5. History of atrial flutter and supraventricular tachycardia. 6. Sepsis - again secondary to what looks like healthcare-associated pneumonia. 7. History of hypertension Preliminary Cause of 1. respiratory distress - asystole (minutes) 2. cardiac arrest (days) 3. PNA (days) Hospital Course 76-year-old female with a history of hypertension, COPD, SVT, atrial flutter, diabetes, previous tracheostomy, who was brought to the ER after cardiopulmonary arrest. The patient had been admitted at [facility] for pneumonia earlier in the day prior to this admission, but she signed against medical advice. While she was at home she started complaining of shortness of breath and then she became unresponsive. When EMS arrived the patient was pulseless, in asystole, and was apneic. Chest compression/CRP was initiated and multiple attempts were made to intubate the patient, but it was unsuccessful. Also multiple attempts in placement of IV access was unsuccessful either, and as such, a right lower extremity IO was placed. Reportedly after 2 rounds of epinephrine, EMS were contacting their base station to terminate resuscitation, when the patient had return of spontaneous circulation. Cardiac arrest - status post return of spontaneous circulation, s/ p hypothermia protocol. Patient was intubated. EEG performed and neurology consult, pulmonary consult rec's, CV, renal, and palliative consults all obtained; pt had bilateral pneumonia, on broad spectrum antibiotics for now, History of type 2 diabetes, hyperglycemia - A1c - 7.8, placed on insulin IV drip. Pt determined to have poor prognosis,per Neuro team - pt had absent brainstem reflexes,. EEG results pending. Appreciate palliative team input. After long discussion with family with primary team, nurse, and palliative team , they pursued comfort measures. Antiseizure medications in place. Pt was terminally extubated at noon on 02/11/17 and at 12:15 pm same day. Pending Labs/Cultures Laboratory Tests Test 02/10/17 13:53 02/10/17 15:46 02/10/17 18:35 02/10/17 20:00 Bedside Glucose 120mg/dL (70-220) 116mg/dL (70-220) 117mg/dL (70-220) 102mg/dL (70-220) Test 02/10/17 21:01 02/10/17 22:33 02/10/17 23:45 02/11/17 02:05 Bedside Glucose 121mg/dL (70-220) 156mg/dL (70-220) 152mg/dL (70-220) 131mg/dL (70-220) Test 02/11/17 03:05 02/11/17 04:04 02/11/17 04:47 02/11/17 04:51 Vancomycin Level Trough 16.0ug/ml (10.0-20.0) Bedside Glucose 112mg/dL (70-220) 111mg/dL (70-220) White Blood Count 14.210^3/ul (4.8-10.8) Red Blood Count 3.0410^6/ul (4.20-5.40) Hemoglobin 8.6g/dl (12.0-16.0) Hematocrit 27.3% (37.0-47.0) Mean Corpuscular Volume 89.8fl (82.0-101.0) Mean Corpuscular Hemoglobin 28.3pg (29.0-33.0) Mean Corpuscular Hemoglobin Concent 31.5g/dl (32.0-37.0) Red Cell Distribution Width 17.0% (11.5-14.5) Platelet Count 45762^3/UL (140-415) Mean Platelet Volume 9.8fl (7.4-10.4) Neutrophils % 74.5% (39.0-77.0) Lymphocytes % 13.2% (15.0-51.0) Monocytes % 8.4% (0.0-11.0) Eosinophils % 0.6% (0.0-7.0) Basophils % 0.3% (0.0-2.0) Nucleated Red Blood Cells % 0.0/100WBC (0.0-0.0) Neutrophils # 10.610^3/ul (1.6-7.5) Lymphocytes # 1.910^3/ul (0.8-2.9) Monocytes # 1.210^3/ul (0.3-0.9) Eosinophils # 0.110^3/ul (0.0-0.5) Basophils # 0.010^3/ul (0.0-0.1) Nucleated Red Blood Cells # 0.010^3/ul (0.0-0.0) Sodium Level 138mmol/L (135-144) Potassium Level 5.3mmol/L (3.5-5.1) Chloride Level 106mmol/L (97-110) Carbon Dioxide Level 25mmol/L (21-31) Anion Gap 12 (8-16) Blood Urea Nitrogen 31mg/dl (7-20) Creatinine 2.32mg/dl (0.44-1.00) Glucose Level 119mg/dl (70-220) Calcium Level 8.5mg/dl (8.4-10.2) Total Bilirubin 0.1mg/dl (0.2-1.3) Direct Bilirubin 0.00mg/dl (0.00-0.20) Indirect Bilirubin 0.1mg/dl (0-1.1) Aspartate Amino Transf (AST/SGOT) 90IU/L (15-46) Alanine Aminotransferase (ALT/SGPT) 51IU/L (13-69) Alkaline Phosphatase 64IU/L (42-121) Total Protein 5.6g/dl (6.1-8.1) Albumin 3.3g/dl (3.3-4.9) Globulin 2.30g/dl (1.3-3.2) Albumin/Globulin Ratio 1.43 Test 02/11/17 05:00 02/11/17 06:11 02/11/17 06:40 02/11/17 09:15 Phosphorus Level 5.0mg/dl (2.5-4.9) Magnesium Level 1.6mg/dl (1.7-2.5) Bedside Glucose 106mg/dL (70-220) 115mg/dL (70-220) 121mg/dL (70-220) MIGUEL ANGEL MORGAN Feb 11, 2017 12:57
[2017-02-11] MEDS ORDERED: LEVETIRACETAM 1500 MG (PMX) 100 ML IVPB SCH (21:00)
--- NOTE | 2017-02-12 10:18 | CONS ---
Date/Time of Note Date/Time of Note DATE: 02/12/17 TIME: 10:13 Assessment/Plan Assessment/Plan Additional Assessment/Plan Long discussion with family members. Participants patience four children, patient's is incapacitated hospitalized and per children would not understand the severity of patients current condition. All family members participated in decision-making's on behalf of their mother, they gave me a clear understanding that the mother would not want to live in a vegetative condition. Further that they understood that there may be some neurological damage extent the width is unknown at this time but they do not want her to survive in a cognitive condition any less than her functioning prior to this catastrophic illness. Therefore strengths medication issues cultural issues caregiver concerns were all addressed to family members satisfactions goals of care were discussed clinical prognosis was discussed based upon best practice guidelines. There were no ethical issues surrogate issues were discussed all family members once again making all decisions on their mother's behalf they made it very clear that they would like to discontinue current level of care. I have discussed it with nursing staff and neuro. consultation and member of Bioethics committee who are in agreement to discontinue current level of care and compassionate extubation. Consultation Date/Type/Reason Admit Date/Time Feb 07, 2017 at 22:31 Initial Consult Date 02/08/17 Type of Consultation: cardiology Referring Provider: MIGUEL ANGEL MORGAN Exam/Review of Systems Vital Signs Vitals Vital Signs Date Time Temp Pulse Resp B/P Pulse Ox O2 Delivery O2 Flow Rate FiO2 02/11/17 12:00 Nasal Cannula 2.0 02/11/17 12:00 98 02/11/17 12:00 99.6 32 152/118 100 02/11/17 09:20 40 Intake and Output 02/11/17 02/11/17 02/12/17 15:00 23:00 07:00 Intake Total 775 ml Output Total 240 ml Balance 535 ml Results Result Diagram: 02/11/17 0447 02/11/17 0447 NORMAN SULLIVAN Feb 12, 2017 10:18
--- NOTE | 2017-02-12 10:23 | SP ---
DATE OF PROCEDURE: 02/09/2017 ELECTROENCEPHALOGRAM REPORT HISTORY: This is a 76-year-old woman who was admitted with cardiorespiratory arrest. EEG is to rul e out seizure activity or encephalopathy. CURRENT MEDICATIONS: 1. Cefepime. 2. Demerol. 3. Midazolam 4. Fentanyl. 5. Albuterol. 6. Morphine. PROCEDURE: Utilizing a 16-channel EEG machine, cap scalp electrodes were applied in accordance with International 10-20 system. Owvcq-tm-vazod and jsrrc-mz-bzf montages were displayed. Electrical i mpedances were measured and reported. DESCRIPTION: During the resting state, posterior dominant rhythm of about 6 to 7 Hz were seen bihem ispherically. Photic stimulation had no response. Hyperventilation was not performed. Bifrontal t emporal sharps were noted throughout the tracing. INTERPRETATION: This is an abnormal EEG because of presence of generalized bihemispheric background slowing with bifrontal temporal epileptiform activity. Please correlate these findings with the meche cheek's clinical picture. Dictated By: TD RIVERA/SWAPNA Conf#: [id number] DID#: [id number]
[2017-02-13] MEDS ORDERED: VANCOMYCIN 1.25 GM in SOD CHLORIDE 0.9% 250 ML IVPB SCH (06:00)
== END 2017-02-11 12:15 | disposition expired | DRG 871 ==
LOC: E/R 21:02 → ICU 22:31
PROVIDERS: ADMIT Internal Medicine; ATTEND Internal Medicine
PROC: 0BH17EZ Insertion of Endotracheal Airway into Trachea, Via Natural or Artificial Opening (ICD-10-PCS; principal; 2017-02-07)
PROC: 5A1945Z Respiratory Ventilation, 24-96 Consecutive Hours (ICD-10-PCS; 2017-02-07)
PROC: 06HY33Z Insertion of Infusion Device into Lower Vein, Percutaneous Approach (ICD-10-PCS; 2017-02-07)
DX: A41.9 Sepsis, unspecified organism (principal); J18.9 Pneumonia, unspecified organism; I46.9 Cardiac arrest, cause unspecified; J96.02 Acute respiratory failure with hypercapnia; J96.01 Acute respiratory failure with hypoxia; E87.0 Hyperosmolality and hypernatremia; G93.1 Anoxic brain damage, not elsewhere classified; N17.9 Acute kidney failure, unspecified; J44.9 Chronic obstructive pulmonary disease, unspecified; E87.5 Hyperkalemia; I10 Essential (primary) hypertension; Z51.5 Encounter for palliative care; R40.2433 Glasgow coma scale score 3-8, at hospital admission; E11.65 Type 2 diabetes mellitus with hyperglycemia; Z79.4 Long term (current) use of insulin; Z66 Do not resuscitate
CPT/HCPCS: 31500; 36415; 36600; 70450; 71010; 74000; 76775; 80048; 80053; 80061; 80202; 81001; 81003; 82150; 82550; 82553; 82570; 82803; 82962; 83036; 83605; 83615; 83690; 83735; 84100; 84300; 84484; 84560; 85025; 85610; 85730; 87040; 87081; 87086; 89190; 93005; 93306; 94002; 94003; 94770; 95819; 96374; 96375; J1940; J0692; J1644; J1815; J1953; J1956; J2060; J2250; J2270; J3010; J3370; J3475; J3480; J7030; J7040; J7042; J7050; P9047; Q2009